=== PATIENT | male | born 1970 | race Caucasian/White ===

== ENCOUNTER 2019-11-24 14:26 | Emergency (ER) | payer OTHER, SELFPAY ==
--- NOTE | ~2019-11-24 | XR_ITS ---
EXAMINATION: XR chest 2V DATE: 11/24/2019 15:22 INDICATION: Productive cough and body aches TECHNIQUE: PA and lateral views of the chest were obtained. COMPARISON: Chest radiograph dated 09/18/2018 FINDINGS: The lungs remain clear with no focal airspace opacities, pulmonary edema, pleural effusion or pneumot horax. The cardiomediastinal silhouette is normal. Median sternotomy wires and mediastinal surgical c lips are seen, likely from prior coronary artery bypass grafting. Mitral valve repair. Single lead pa cemaker/AICD seen with the tip directed over the right ventricle. IMPRESSION: 1. No acute cardiopulmonary disease. Reviewed, dictated and finalized at location A.
[2019-11-24 14:49] VITALS: BP 126/83; PULSE 71; RESP 19; TEMP 36.6; O2SAT 94
--- NOTE | 2019-11-24 16:01 | ED.URI ---
HPI - URI/Sore Throat General Chief Complaint: Upper Respiratory Infection Stated Complaint: cough Time Seen by Provider: 11/24/19 14:47 Source: patient Mode of arrival: ambulatory Limitations: no limitations History of Present Illness HPI Narrative: Patient presents with chief complaint of productive cough over the past 2 weeks. Patient states he coughs up phlegm but is unaware clarity is because he swallows it. Patient states he has not noted any fevers. He reports occasional body aches. Patient states he has been able to eat and drink appropriately. He denies any chest pain, pressure in his chest, nausea, vomiting, diarrhea, or swelling to his extremities. Related Data Home Medications Medication Instructions Recorded Confirmed losartan 25 mg DAILY 08/30/19 08/30/19 metoprolol tartrate 100 mg BID 08/30/19 08/30/19 rosuvastatin 20 mg DAILY 08/30/19 08/30/19 ticagrelor [Brilinta] 90 mg DAILY 08/30/19 08/30/19 Allergies Allergy/AdvReac Type Severity Reaction Status Date / Time No Known Allergies Allergy Verified 11/24/19 14:54 Review of Systems Review of Systems: Narrative: CONSTITUTIONAL: Denies fever, chills, or sweats. EYES: Denies visual changes, redness, or discharge. ENT: Denies rhinorrhea, congestion, sore throat, or otalgia. CARDIOVASCULAR: Denies chest pain, palpitations, or edema. RESPIRATORY: Reports productive cough denies dyspnea. GASTROINTESTINAL: Denies abdominal pain, nausea, vomiting, or diarrhea. GENITOURINARY: Denies dysuria or hematuria. SKIN: Denies rash or itching. MUSCULOSKELETAL: Denies back pain, joint pain, or myalgia. NEUROLOGIC: Denies headache, numbness, dizziness, or weakness. PSYCHIATRIC: Denies anxiety or depression. PMFSH Social History Social History Smoking status: Current every day smoker Alcohol intake: current Gender identity (if verbalized by the patient): Male Exam Narrative: Exam Narrative: GENERAL: Well-appearing, well-nourished, and in no acute distress. HEAD: Normocephalic, atraumatic. EYES: PERRLA and EOMI. ENT: Nares clear, no rhinorrhea or epistaxis. Mucous membranes moist. Oropharynx without tonsillar hypertrophy exudate or other lesions. Bilateral TMs pearly bright nonbulging NECK: Supple. No adenopathy or masses. CHEST: Clear to auscultation. No respiratory distress. No wheezes rales or rhonchi. No tachypnea HEART: Regular rate and rhythm. EXTREMITIES: Normal range of motion. No edema. SKIN: Warm, dry, no rash. NEURO: No focal deficits. Alert and oriented x3. PSYCH: Normal mood and affect. Course Vital Signs Vital signs: Vital Signs Temperature 97.9 F 11/24/19 14:49 Pulse Rate 71 11/24/19 14:49 Respiratory Rate 19 11/24/19 14:49 Blood Pressure 126/83 11/24/19 14:49 Pulse Oximetry 94 11/24/19 14:49 Temperature 97.9 F 11/24/19 14:49 Pulse Rate 71 11/24/19 14:49 Respiratory Rate 19 11/24/19 14:49 Blood Pressure 126/83 11/24/19 14:49 Pulse Oximetry 94 11/24/19 14:49 MDM - URI/Sore Throat MDM Narrative Medical decision making narrative: Discussed with patient the need for close follow-up with his primary care. Patient will be started on azithromycin and will receive Tessalon Perles for cough. Patient nontoxic in appearance. Patient not lethargic. Patient states he is in agreement with plan denies any other concerns. Differential Diagnosis Differential diagnosis: Likely upper respiratory infection, croup, otitis media, sinusitis, viral infection, bronchitis, influenza and pharyngitis Lab Data Labs: Influenza A Screen Negative Reference Range: Negative Influenza B Screen Negative Reference Range: Negative Imaging Data Radiologist's impression: ITS Impressions Chest X-Ray 11/24/19 15:25 IMPRESSION: 1. No acute cardiopulmonary disease. Discharge Plan Discharge Clinical Impression:
[2019-11-24 16:20] VITALS: BP 134/90; PULSE 93; RESP 15; TEMP 36.6; O2SAT 98
== END 2019-11-24 16:21 | disposition home or self-care (01) ==
PROVIDERS: Emergency Provider Family Medicine; PCP Internal Medicine
DX: J40 Bronchitis, not specified as acute or chronic (principal); F17.200 Nicotine dependence, unspecified, uncomplicated
CPT/HCPCS: 71046; 87804; 99283

== ENCOUNTER 2020-05-19 15:04 | Outpatient (CLI) | payer OTHER, SELFPAY ==
[2020-05-19 16:14] LABS: Anion Gap 10 mmol/L (8-16); Blood Urea Nitrogen 15 mg/dL (9-20); Calcium 9.4 mg/dL (8.4-10.2); Carbon Dioxide 27 mmol/L (22-30); Chloride 100 mmol/L (98-107); Estimated Glomerular Filt Rate > 60; Glucose 365 mg/dL (75-110); Magnesium 1.9 mg/dL (1.6-2.3); Potassium 4.4 mmol/L (3.4-5.0); Sodium 137 mmol/L (137-145)
== END 2020-05-19 15:05 | disposition home or self-care (01) ==
PROVIDERS: PCP Internal Medicine; Visit Provider Internal Medicine Cardiovascular Disease
DX: I47.2 Ventricular tachycardia (principal)
CPT/HCPCS: 36415; 80048; 83735

== ENCOUNTER 2021-04-29 08:31 | Outpatient (CLI) | payer OTHER, SELFPAY ==
[2021-04-29 09:47] LABS: Cholesterol 138 mg/dL (0-200); HDL Direct 35 mg/dL; Triglycerides 261 mg/dL (<150)
[2021-04-29 09:59] LABS: LDL Cholesterol Direct 51 mg/dL
== END 2021-04-29 08:32 | disposition home or self-care (01) ==
PROVIDERS: PCP Family Medicine; Visit Provider Nurse Practitioner Adult Health
DX: E78.2 Mixed hyperlipidemia (principal)
CPT/HCPCS: 36415; 80061

== ENCOUNTER 2021-06-27 08:12 | Emergency (ER) | payer OTHER, SELFPAY ==
--- NOTE | ~2021-06-27 | XR_ITS ---
XR chest 2V 06/27/2021 08:50 Indication: Cough Procedure: PA and lateral views of the chest Comparison: 11/24/2019 Findings: Status post median sternotomy for CABG. Heart size normal. There is a pacemaker lead, posit ion unchanged. No acute focal pneumonia, edema or effusion. There are a few small dense nodules, like ly calcified granulomas unchanged. Impression: 1: No acute cardiopulmonary disease Reviewed, dictated and finalized at location B. Impression: 1: No acute cardiopulmonary disease
[2021-06-27 08:19] VITALS: BP 150/99; PULSE 90; RESP 22; TEMP 36.6; O2SAT 95
--- NOTE | 2021-06-27 09:22 | ED.GENADULT ---
HPI - General Adult General Chief complaint: Upper Respiratory Infection Stated complaint: uri Time Seen by Provider: 06/27/21 08:22 History of Present Illness HPI narrative: Patient is a 50-year-old male who presents ER with sinus congestion over the last 5 days. Associate with pain in his right ear. No fevers or chills or sweats. He has developed productive cough. No exertional dyspnea. No loss of taste or smell. No known Covid contacts. Patient is unvaccinated against Covid. No aggravating or alleviating factors but symptoms seem to be getting worse they want to be evaluated. Related Data Home Medications Medication Instructions Recorded Confirmed losartan 25 mg DAILY 08/30/19 08/30/19 metoprolol tartrate 100 mg BID 08/30/19 08/30/19 rosuvastatin 20 mg DAILY 08/30/19 08/30/19 ticagrelor [Brilinta] 90 mg DAILY 08/30/19 08/30/19 insulin lispro [Humalog Pen] SUBCUT 06/27/21 metformin mg 06/27/21 Allergies Allergy/AdvReac Type Severity Reaction Status Date / Time No Known Allergies Allergy Verified 06/27/21 08:24 Review of Systems Review of Systems: All systems reviewed & are unremarkable except as noted in HPI and below Constitutional: Constitutional: Denies chills, Denies fever(s) and Denies weakness ENT: Reports nasal congestion and Denies sore throat Comments: Right ear pain Cardiovascular: Cardiovascular: Denies chest pain, Denies rapid heart rate and Denies radiating jaw, neck or arm pain Respiratory: Respiratory: Reports chest congestion, Reports cough, Denies dyspnea and Denies wheezing Gastrointestinal: Gastrointestinal: Denies abdominal pain, Denies nausea and Denies vomiting Musculoskeletal: Musculoskeletal: Denies back pain and Denies muscle cramps [facility] Past Medical History Medical History (Updated 06/27/21 @ 10:23 by Branden Barrera MD) Chronic diastolic heart failure Chronic pansinusitis Chronic systolic heart failure Coronary artery disease involving [place] artery of transplanted heart without angina pectoris Diverticulosis of intestine, part unspecified, without perforation or abscess with bleeding Dyslipidemia Essential hypertension Gastroenteritis Hx of ventricular tachycardia Obesity (BMI 30.0-34.9) DU (obstructive sleep apnea) Tobacco use disorder Surgical History Surgical History History of heart bypass surgery Family History Family History Sibling Hypertension Family history of cardiovascular disease Mother Hypertension, Onset Age: 67 Social History Social History Smoking status: Current every day smoker Alcohol intake: current Gender identity (if verbalized by the patient): Male Exam Narrative: GENERAL: Well-appearing, well-nourished, and in no acute distress. HEAD: Normocephalic, atraumatic. ENT: The left tympanic membrane and ear canal. Right ear canal normal but tympanic membrane is red and inflamed and bulging. No purulent drainage. CHEST: Clear to auscultation. No respiratory distress. HEART: Regular rate and rhythm. Normal peripheral pulses. ABDOMEN: Soft, nontender, nondistended. EXTREMITIES: Normal range of motion. No edema. SKIN: Warm, dry, no rash. NEURO: Alert and oriented x3. PSYCH: Normal mood and affect. Course Course Emergency Course: Patient swabbed for Covid and has been instructed on PUI precautions. Patient be started on Augmentin for otitis. We will also prescribe Flonase. Discharge home. Patient does not currently work so he does not need a note. Vital Signs Vital signs: Vital Signs Temperature 97.8 F 06/27/21 08:19 Pulse Rate 90 06/27/21 08:19 Respiratory Rate 22 H 06/27/21 08:19 Blood Pressure 150/99 H 06/27/21 08:19 Pulse Oximetry 95 06/27/21 08:19 Temperature 97.8 F 06/27/21 08:19 Pulse Rate 90 06/27/21 08:19
[2021-06-27 10:32] VITALS: BP 143/93; PULSE 88; RESP 20; O2SAT 95
[2021-06-27 18:52] LABS: SARS-CoV-2 RNA PCR Negative
== END 2021-06-27 10:33 | disposition home or self-care (01) ==
PROVIDERS: Emergency Provider Emergency Medicine; PCP Family Medicine
DX: J06.9 Acute upper respiratory infection, unspecified (principal); H66.91 Otitis media, unspecified, right ear; Z20.822 Contact with and (suspected) exposure to COVID-19; I50.42 Chronic combined systolic (congestive) and diastolic (congestive) heart failure; I25.811 Atherosclerosis of native coronary artery of transplanted heart without angina pectoris; E78.5 Hyperlipidemia, unspecified; I11.0 Hypertensive heart disease with heart failure; E66.9 Obesity, unspecified; Z68.33 Body mass index [BMI] 33.0-33.9, adult; G47.33 Obstructive sleep apnea (adult) (pediatric); F17.200 Nicotine dependence, unspecified, uncomplicated; Z95.1 Presence of aortocoronary bypass graft
CPT/HCPCS: 71046; 99283; C9803; U0003; U0005

== ENCOUNTER 2021-10-19 14:18 | Outpatient (CLI) | payer OTHER, SELFPAY ==
[2021-10-19 14:40] LABS: Basophils Absolute Auto 0.1 K/mm3 (0.0-0.1); Basophils Percent Auto 1.2 % (0.2-1.2); Eosinophils Absolute Auto 0.4 K/mm3 (0-0.3); Eosinophils Percent Auto 4.6 % (0-4.4); Hematocrit 50.9 % (42.0-52.0); Hemoglobin 17.4 g/dL (14.0-18.0); Immature Granulocyte Absolute 0.04 K/mm3 (0.00-0.031); Immature Granulocyte Percent A 0.4 % (0-0.5); Lymphocytes Absolute Auto 2.82 K/mm3 (0.9-3.2); Lymphocytes Percent Auto 30.1 % (18.3-44.2); Mean Corpuscular HGB Conc 34.2 g/dl (32-36); Mean Corpuscular Volume 90.6 fl (80-100); Mean Platelet Volume 10.5 fl (7.4-10.4); Monocytes Absolute Auto 0.9 K/mm3 (0.1-0.6); Monocytes Percent Auto 9.2 % (2.6-8.5); Neutrophils Absolute Auto 5.1 K/mm3 (1.3-6.7); Neutrophils Percent Auto 54.5 % (45.5-73.1); Platelet Count Result 178 k/mm3 (150-375); Red Blood Count 5.62 M/mm3 (4.6-6.20); Red Cell Distribution Width 13.6 % (11.5-14.5); White Blood Count 9.4 K/mm3 (4.5-10.0)
[2021-10-19 14:57] LABS: Alanine Aminotransferase 65 U/L (4-50); Albumin Level 4.6 g/dL (3.5-5.1); Alkaline Phosphatase 91 U/L (38-126); Anion Gap 7 mmol/L (8-16); Aspartate Amino Transferase 53 U/L (17-59); Blood Urea Nitrogen 13 mg/dL (9-20); Calcium 9.7 mg/dL (8.4-10.2); Carbon Dioxide 31 mmol/L (22-30); Chloride 102 mmol/L (98-107); Cholesterol 155 mg/dL (0-200); Estimated Glomerular Filt Rate > 60; Glucose 103 mg/dL (65-110); HDL Direct 31 mg/dL; Potassium 4.2 mmol/L (3.4-5.0); Sodium 140 mmol/L (137-145); Triglycerides 426 mg/dL (<150)
[2021-10-19 15:01] LABS: Creatinine Urine 157.2 mg/dL
[2021-10-19 15:05] LABS: MALB Creatinine Ratio 79.1 mg/g (0-30); Microalbumin Urine Random 124.4 mg/L (0-16.7)
[2021-10-19 15:09] LABS: LDL Cholesterol Direct 45 mg/dL
== END 2021-10-19 14:19 | disposition home or self-care (01) ==
LOC: ANHLAB 14:20
PROVIDERS: PCP Family Medicine; Visit Provider Family Medicine
DX: E11.9 Type 2 diabetes mellitus without complications (principal); I10 Essential (primary) hypertension; E78.2 Mixed hyperlipidemia; E03.9 Hypothyroidism, unspecified
CPT/HCPCS: 36415; 80053; 80061; 82043; 83036; 84443; 85025

== ENCOUNTER → 2021-11-19 00:19 | Outpatient (CLI) | payer OTHER, SELFPAY ==
[2021-11-19 13:26] LABS: SARS-CoV-2 RNA PCR Negative
== END ==
PROVIDERS: PCP Family Medicine; Visit Provider Internal Medicine Gastroenterology
DX: Z01.812 Encounter for preprocedural laboratory examination (principal); Z20.822 Contact with and (suspected) exposure to COVID-19
CPT/HCPCS: C9803; U0003; U0005

== ENCOUNTER 2021-11-23 00:31 | Day surgery (SDC) | payer OTHER, SELFPAY ==
[2021-11-16 11:17] VITALS: BMI 35.0
--- NOTE | 2021-11-22 17:33 | PM.HPGS ---
History of Present Illness History of Present Illness Consent: Risks, benefits, and alternatives have been discussed and questions answered. Patient agrees to proceed with procedure. Chief complaint: hx of rectal polyps Narrative: Дмитрий Teixeira is a 51 year old male referred for colon cancer screening. He had tubular adenoma removed 7 years ago Review of Systems Review of Systems: All systems reviewed & are unremarkable except as noted in HPI and below PMFSH Past Medical History Medical History CAD (coronary artery disease), [place] coronary artery Chronic diastolic heart failure Chronic pansinusitis Chronic systolic heart failure Diabetes mellitus with hyperglycemia Diverticulosis of intestine, part unspecified, without perforation or abscess with bleeding Dyslipidemia Essential hypertension Gastroenteritis Hx of ventricular tachycardia ICD (implantable cardioverter-defibrillator) in place Obesity (BMI 30.0-34.9) DU (obstructive sleep apnea) DU on CPAP Tobacco use disorder Surgical History Surgical History H/O colonoscopy with polypectomy 2014, repeat in 5 years History of heart bypass surgery History of implantable cardioverter-defibrillator (ICD) placement Hx of coronary angioplasty Family History Family History Sibling Hypertension Family history of cardiovascular disease Mother Hypertension, Onset Age: 67 Social History Social History Social History: Smoking packs per day: 0.5 Smoking cigarettes per day: 10.0 Years smoked: 42 Smoking pack-years: 21.00 Smoking status: Current every day smoker Tobacco type: cigarettes Second hand tobacco smoke exposure: No Alcohol intake: current Alcohol use details: Socially Substance use: never Substance use type: does not use Living arrangements: with family Gender identity (if verbalized by the patient): Male Sexual Orientation (if Verbalized by the Patient): Straight or Heterosexual Spiritual care concerns: No Meds Home Medications and Allergies Home Medications Medication Instructions Recorded Confirmed Type Brilinta 90 mg PO DAILY 08/30/19 11/23/21 History losartan 25 mg DAILY 08/30/19 11/16/21 History metoprolol tartrate 100 mg PO BID 08/30/19 11/23/21 History metformin 500 mg PO DAILY 06/27/21 11/16/21 History aspirin 81 mg chewable tablet 81 mg PO DAILY 10/18/21 11/16/21 History insulin glargine 100 unit/mL (3 20 unit SUBCUT QAM 10/18/21 11/16/21 History mL) subcutaneous pen insulin lispro 100 unit/mL 1 sliding scale dose SUBCUT 10/18/21 11/16/21 History subcutaneous pen USEASDIRECTD metoclopramide HCl 10 mg tablet 10 mg PO TID PRN #90 tablet 10/18/21 11/16/21 Rx multivitamin 1 tablet PO DAILY 10/18/21 11/16/21 History rosuvastatin 20 mg tablet 40 mg PO DAILY tablet 10/18/21 11/16/21 History fluticasone propionate 50 2 spray INTRANASAL BID #16 g 10/25/21 11/16/21 Rx mcg/actuation nasal spray,suspension omega-3 fatty acids-vitamin E 1 cap PO BID 11/16/21 11/16/21 History Allergies Allergy/AdvReac Type Severity Reaction Status Date / Time No Known Allergies Allergy Verified 11/23/21 09:02 Exam Resp: Auscultation: clear to auscultation bilaterally Cardio: Rate: regular rate Rhythm: regular rhythm GI: GI Palp: Yes Soft to palpation and No Tenderness to palpation present (GI) Assessment and Plan Assessment and plan (1) Colon cancer screening: Code(s): Z12.11 - Encounter for screening for malignant neoplasm of colon Status: Acute Assessment and Plan: Colonoscopy with possible biopsy or polypectomy or cautery or injection of substances.
[2021-11-23 09:16] LABS: Glucose Point of Care 167 mg/dl (65-105)
[2021-11-23] MEDS: LACTATED RINGERS 1,000 ML 150 ML IV CONT (09:16)
[2021-11-23] MEDS: GENTAMICIN 80MG/SOD CHL 50 ML 80 MG/50 ML BAG 100 MG IVPB (09:17)
[2021-11-23 09:19] VITALS: BP 145/87; PULSE 78; RESP 18; TEMP 36.1; O2SAT 94
--- NOTE | 2021-11-23 09:28 | WPDANESEPPF ---
Anes - Initial Pre Proc Eval Procedure: Operation Date: 11/23/21 10:00 Proposed Procedures p Screening Colonoscopy - Josh Villa MD Date/Time: 11/23/21 09:28 Surgeon: Josh Villa MD Pre Op Diagnosis: hx of rectal polyps Patient Data Age: 51 Gender: M Height: 1.8 m Weight: 117 kg Last Vital Signs Temp 36.1 C L 11/23/21 09:19 Pulse 78 11/23/21 09:19 Resp 18 11/23/21 09:19 BP 145/87 H 11/23/21 09:19 Pulse Ox 94 11/23/21 09:19 Allergies Allergy/AdvReac Type Severity Reaction Status Date / Time No Known Allergies Allergy Verified 11/23/21 09:02 Home Medications Medication Instructions Recorded Confirmed Type losartan 25 mg DAILY 08/30/19 11/16/21 History metoprolol tartrate 100 mg PO BID 08/30/19 11/23/21 History ticagrelor [Brilinta] 90 mg PO DAILY 08/30/19 11/23/21 History metformin 500 mg PO DAILY 06/27/21 11/16/21 History aspirin 81 mg chewable tablet 81 mg PO DAILY 10/18/21 11/16/21 History insulin glargine 100 unit/mL (3 20 unit SUBCUT QAM 10/18/21 11/16/21 History mL) subcutaneous pen insulin lispro 100 unit/mL 1 sliding scale dose SUBCUT 10/18/21 11/16/21 History subcutaneous pen USEASDIRECTD metoclopramide HCl 10 mg tablet 10 mg PO TID PRN #90 tablet 10/18/21 11/16/21 Rx multivitamin 1 tablet PO DAILY 10/18/21 11/16/21 History rosuvastatin 20 mg tablet 40 mg PO DAILY tablet 10/18/21 11/16/21 History fluticasone propionate 50 2 spray INTRANASAL BID #16 g 10/25/21 11/16/21 Rx mcg/actuation nasal spray,suspension omega-3 fatty acids-vitamin E 1 cap PO BID 11/16/21 11/16/21 History [Fish Oil] Laboratory Tests 11/23/21 09:13 POC Capillary Glucose 167 mg/dl H mg/dl (65-105) Patient hx anesthesia problems: none Family hx anesthesia problems: none Results Review: All pre-operative results and documents have been reviewed as part of the pre-operative evaluation. [facility] Past Medical History Medical History CAD (coronary artery disease), [place] coronary artery Chronic diastolic heart failure Chronic pansinusitis Chronic systolic heart failure Diabetes mellitus with hyperglycemia Diverticulosis of intestine, part unspecified, without perforation or abscess with bleeding Dyslipidemia Essential hypertension Gastroenteritis Hx of ventricular tachycardia ICD (implantable cardioverter-defibrillator) in place Obesity (BMI 30.0-34.9) DU (obstructive sleep apnea) DU on CPAP Tobacco use disorder Surgical History Surgical History H/O colonoscopy with polypectomy 2014, repeat in 5 years History of heart bypass surgery History of implantable cardioverter-defibrillator (ICD) placement Hx of coronary angioplasty Family History Family History Sibling Hypertension Family history of cardiovascular disease Mother Hypertension, Onset Age: 67 Social History Social History Social History: Smoking packs per day: 0.5 Smoking cigarettes per day: 10.0 Years smoked: 42 Smoking pack-years: 21.00 Smoking status: Current every day smoker Tobacco type: cigarettes Second hand tobacco smoke exposure: No Alcohol intake: current Alcohol use details: Socially Substance use: never Substance use type: does not use Living arrangements: with family Gender identity (if verbalized by the patient): Male Sexual Orientation (if Verbalized by the Patient): Straight or Heterosexual Spiritual care concerns: No Anes - Eval Final PreProcedure Day of Procedure 11/23/21 09:28 Patient weight: obese Heart: regular rate and rhythm (pacer/defib) Lungs: clear to auscultation Airway: Mallampati scale class II Neurological: alert and oriented Last oral intake: >/= 8 hours ASA classification: IV E
[2021-11-23] MEDS: AMPICILLIN 2 GM/NS 100 ML 2 GM/100 ML BAG IVPB (09:40)
[2021-11-23 10:15] VITALS: BP 130/60; PULSE 78; RESP 21; O2SAT 94
[2021-11-23 10:25] VITALS: BP 131/86; PULSE 73; RESP 22; O2SAT 94
== END 2021-11-23 10:42 | disposition home or self-care (01) ==
PROVIDERS: PCP Family Medicine; Visit Provider Internal Medicine Gastroenterology
PROC: 0DJD8ZZ Inspection of Lower Intestinal Tract, Via Natural or Artificial Opening Endoscopic (ICD-10-PCS; CPT 45378; principal; 2021-11-23 10:00)
DX: Z12.11 Encounter for screening for malignant neoplasm of colon (principal); K57.30 Diverticulosis of large intestine without perforation or abscess without bleeding; D12.2 Benign neoplasm of ascending colon; D12.3 Benign neoplasm of transverse colon; D12.8 Benign neoplasm of rectum; K62.1 Rectal polyp; I25.10 Atherosclerotic heart disease of native coronary artery without angina pectoris; I11.0 Hypertensive heart disease with heart failure; I50.42 Chronic combined systolic (congestive) and diastolic (congestive) heart failure; E11.9 Type 2 diabetes mellitus without complications; G47.33 Obstructive sleep apnea (adult) (pediatric); Z95.810 Presence of automatic (implantable) cardiac defibrillator; Z79.01 Long term (current) use of anticoagulants; Z79.4 Long term (current) use of insulin; Z79.84 Long term (current) use of oral hypoglycemic drugs; Z79.82 Long term (current) use of aspirin; Z95.1 Presence of aortocoronary bypass graft; F17.210 Nicotine dependence, cigarettes, uncomplicated; E66.9 Obesity, unspecified; Z68.36 Body mass index [BMI] 36.0-36.9, adult
CPT/HCPCS: 45385; 82948; 88305; J0290; J1580; J2704; J7120

== ENCOUNTER 2022-05-11 08:36 | Inpatient (IN) | payer OTHER, SELFPAY ==
[2022-05-11] VITALS (17 sets, daily range): BP systolic 105–130; BP diastolic 60–93; PULSE 69–98; RESP 13–32; TEMP 36.4–37.7; O2SAT 92–96; BMI 34.7
--- NOTE | ~2022-05-11 | CT_ITS ---
EXAMINATION: CTA chest PE protocol DATE: 05/11/2022 10:53 INDICATION: Shortness of breath, COVID 19 positive TECHNIQUE: Computed tomography angiography (CTA) of the chest was performed with 100 mL Omnipaque-350 intravenous contrast timed to evaluate the pulmonary arteries. Coronal maximum intensity projection 3D-reconstructions were created by the technologist. The dose-length product (DLP) was 857.15 mGy-cm. Automated exposure control and iterative reconstruction technique were employed. COMPARISON: None. FINDINGS: The pulmonary arteries are well-opacified. No pulmonary embolism is identified. There are p atchy bilateral airspace opacities throughout the lungs. No pleural effusion or pneumothorax. No path ologically enlarged thoracic lymph nodes are identified. The heart size is normal. Changes of coronar y artery bypass grafting are noted. The liver is diffusely low in attenuation when compared with the spleen, consistent with hepatic steatosis. There is a small sliding hiatal hernia. IMPRESSION: 1. No pulmonary embolus. 2. Patchy bilateral airspace opacities, consistent with old focal COVID 19 pneumonia. Reviewed, dictated and finalized at location A. IMPRESSION: 1. No pulmonary embolus. 2. Patchy bilateral airspace opacities, consistent with old focal COVID 19 pneu monia.
--- NOTE | ~2022-05-11 | XR_ITS ---
EXAMINATION: XR chest 1V portable DATE: 05/11/2022 09:25 INDICATION: Shortness of breath. Cough. TECHNIQUE: A single frontal view of the chest was obtained. COMPARISON: Chest 2 views 06/27/2021 FINDINGS: There is a diffuse interstitial pattern, consistent mild pulmonary edema. No pleural effusi on or pneumothorax. Cardiomegaly is noted. There are changes of heart valve replacement. There is a l eft chest pacer/defibrillator with lead in right ventricle. IMPRESSION: 1. Mild pulmonary edema. 2. Cardiomegaly. Reviewed, dictated and finalized at location A.
--- NOTE | ~2022-05-11 | US_ITS ---
EXAMINATION: US venous doppler [facility] DATE: 05/11/2022 17:01 INDICATION: Lower limb swelling TECHNIQUE: Grayscale ultrasound images without and with compression and Doppler ultrasound images of the bilateral lower extremity veins were obtained. COMPARISON: None. FINDINGS: The visualized portions of right common femoral vein, profunda (deep) femoral vein, femoral vein, pop liteal vein, posterior tibial veins, peroneal veins and greater saphenous vein outflow are patent. The visualized portions of left common femoral vein, profunda femoral vein, femoral vein, popliteal v ein, posterior tibial veins, peroneal veins and greater saphenous vein outflow are patent. IMPRESSION: 1. No deep venous thrombosis in either lower limb. Reviewed, dictated and finalized at location A.
--- NOTE | 2022-05-11 09:08 | ECG_ITS ---
Measurements Intervals [place] Rate: 78 P: 49 MT: 185 QRS: -86 QRSD: 124 T: 31 QT: 383 QTc: 437 Interpretive Statements SINUS RHYTHM INTRAVENTRICULAR CONDUCTION DELAY CANNOT RULE OUT SEPTAL INFARCT, AGE INDETERMINATE INFERIOR INFARCT, AGE INDETERMINATE ABNORMAL ECG NO PREVIOUS ECG AVAILABLE FOR COMPARISON Electronically Signed On 05-11-2022 9:47:44 CDT by Aaron Cardenas D.O.
--- NOTE | 2022-05-11 09:09 | ED.URI ---
HPI - URI/Sore Throat General Chief Complaint: Shortness of Breath/Dyspnea Stated Complaint: ?covid symptoms, couldn't get into PCP Time Seen by Provider: 05/11/22 08:39 Source: patient Mode of arrival: ambulatory Limitations: no limitations History of Present Illness HPI Narrative: Patient is a 51-year-old male with a history of hypertension, hyperlipidemia, type 2 diabetes presenting to the emergency department for evaluation of COVID exposure. Patient states that his daughter tested positive for COVID last week and he is on day 3 of COVID symptoms with fever, congestion. He reports mild cough and denies any chest pain or shortness of breath. Patient is not vaccinated for COVID and has no known history of COVID infection. He denies significant headache or myalgias. He denies nausea or vomiting. Patient states that his primary care physician referred him here for evaluation. Related Data Home Medications Medication Instructions Recorded Confirmed losartan 25 mg tablet 50 mg PO DAILY 08/30/19 05/11/22 metoprolol tartrate 100 mg tablet 100 mg PO BID 08/30/19 05/11/22 ticagrelor 90 mg tablet (Brilinta) 60 mg PO BID 08/30/19 05/11/22 aspirin 81 mg chewable tablet 81 mg PO DAILY 10/18/21 05/11/22 insulin glargine 100 unit/mL (3 20 unit subcut QAM 10/18/21 05/11/22 mL) subcutaneous pen (Lantus Solostar U-100 Insulin) multivitamin 1 tablet PO DAILY 10/18/21 05/11/22 rosuvastatin 20 mg tablet 40 mg PO DAILY 10/18/21 05/11/22 omega-3 fatty acids-vitamin E 1 cap PO BID 11/16/21 05/11/22 1,000 mg capsule Allergies Allergy/AdvReac Type Severity Reaction Status Date / Time No Known Allergies Allergy Verified 05/11/22 08:58 Review of Systems Review of Systems: CONSTITUTIONAL: Reports fever without significant chills or diaphoresis EYES: Denies visual changes, redness, or discharge. ENT: Reports rhinorrhea, congestion, denies sore throat CARDIOVASCULAR: Denies chest pain, palpitations, or edema. RESPIRATORY: Reports mild cough without shortness of breath GASTROINTESTINAL: Denies abdominal pain, nausea, vomiting, or diarrhea. GENITOURINARY: Denies dysuria or hematuria. SKIN: Denies rash or itching. MUSCULOSKELETAL: Denies back pain, joint pain, or myalgia. NEUROLOGIC: Denies headache, numbness, or weakness. [facility] Past Medical History Medical History CAD (coronary artery disease), [place] coronary artery Chronic diastolic heart failure Chronic pansinusitis Chronic systolic heart failure Diabetes mellitus with hyperglycemia Diverticulosis of intestine, part unspecified, without perforation or abscess with bleeding Dyslipidemia Essential hypertension Gastroenteritis Hx of ventricular tachycardia ICD (implantable cardioverter-defibrillator) in place Obesity (BMI 30.0-34.9) DU (obstructive sleep apnea) DU on CPAP Tobacco use disorder Surgical History Surgical History H/O colonoscopy with polypectomy 2014, repeat in 5 years History of heart bypass surgery History of implantable cardioverter-defibrillator (ICD) placement Hx of coronary angioplasty Family History Family History Sibling Hypertension Family history of cardiovascular disease Mother Hypertension, Onset Age: 67 Social History Social History Social History: Smoking packs per day: 0.5 Smoking cigarettes per day: 10.0 Years smoked: 42 Smoking pack-years: 21.00 Smoking status: Current every day smoker Tobacco type: cigarettes Second hand tobacco smoke exposure: No Alcohol intake: current Alcohol use details: Socially Substance use: never Substance use type: does not use Gender identity (if verbalized by the patient): Male Sexual Orientation (if Verbalized by the Patient): Straight or Hete
[2022-05-11] MEDS: ACETAMINOPHEN 500 MG TABLET 1000 MG PO (09:24)
[2022-05-11 09:53] LABS: Basophils Percent Auto 0.2 % (0.2-1.2); Hematocrit 47.9 % (42.0-52.0); Hemoglobin 16.7 g/dL (14.0-18.0); Immature Granulocyte Absolute 0.03 K/mm3 (0.00-0.031); Immature Granulocyte Percent A 0.4 % (0-0.5); Immature Platelet Fraction Pct 7.9 % (0.9-11.2); Lymphocytes Absolute Auto 1.01 K/mm3 (0.9-3.2); Lymphocytes Percent Auto 12.4 % (18.3-44.2); Mean Corpuscular HGB Conc 34.9 g/dl (32-36); Mean Corpuscular Hemoglobin 30.9 pg (26-34); Mean Corpuscular Volume 88.7 fl (80-100); Mean Platelet Volume 11.6 fl (7.4-10.4); Monocytes Absolute Auto 0.8 K/mm3 (0.1-0.6); Monocytes Percent Auto 9.9 % (2.6-8.5); Neutrophils Absolute Auto 6.3 K/mm3 (1.3-6.7); Neutrophils Percent Auto 77.1 % (45.5-73.1); Platelet Count Result 121 k/mm3 (150-375); Red Cell Distribution Width 13.7 % (11.5-14.5); White Blood Count 8.2 K/mm3 (4.5-10.0)
--- NOTE | 2022-05-11 09:53 | PC.NURSE ---
Pt oxygen saturation found to be 88% on room air. Pt placed on 2L nasal cannula per LONNIE Landrum.
[2022-05-11 10:03] LABS: Prothrombin Time 13.2 Seconds (11.1-14.7)
[2022-05-11 10:04] LABS: Partial Thromboplastin Time 31.9 SECONDS (22.3-36.8)
[2022-05-11 10:05] LABS: Alanine Aminotransferase 88 U/L (6-50); Albumin Level 4.7 g/dL (3.5-5.1); Alkaline Phosphatase 84 U/L (38-126); Anion Gap 6 mmol/L (8-16); Aspartate Amino Transferase 87 U/L (17-59); Bilirubin,Total 0.9 mg/dL (0.2-1.3); Blood Urea Nitrogen 13 mg/dL (9-20); Calcium 8.4 mg/dL (8.4-10.2); Carbon Dioxide 26 mmol/L (22-30); Chloride 99 mmol/L (98-107); Estimated CRCL calculation 98 ml/min; Estimated Glomerular Filt Rate > 60; Glucose 165 mg/dL (65-110); Potassium 4.1 mmol/L (3.4-5.0); Sodium 131 mmol/L (137-145)
[2022-05-11 10:06] LABS: Lactic Acid Reflex 1.2 mmol/L (0.7-2.0)
[2022-05-11 10:16] LABS: Troponin I 0.017 ng/mL (0.000-0.034)
[2022-05-11 10:31] LABS: SARS-CoV-2 RNA PCR Positive
--- NOTE | 2022-05-11 12:38 | PC.NURSE ---
This patient, Дмитрий Teixeira Jr., was admitted to [facility] Surg Room 300-01 on 05/11/22 on @ 1235. Patient/family oriented to hospital policies and general routines including ID bracelet, bed and alarms, visiting hours, pain management, procedures, bathroom and other care routines, personal items, smoking policy, room service/diet, and visiting hours. Information on how to activate the Rapid Response Team has been discussed. Patient/Family are encouraged to report perceived risks to care and to ask questions if they do not understand what they are told or what they should do.
--- NOTE | 2022-05-11 14:33 | PM.IMHP ---
H&P: HPI History of Present Illness Date/Time: 05/11/22 14:33 Chief Complaint: COVID symptoms Narrative: This is a 51-year-old unvaccinated patient with history of hypertension, hyperlipidemia diabetes type 2. The patient came to the emergency room due to his exposure to COVID. His daughter tested positive for COVID last week and he is on day 3 of having fever and congestion. He stated that he had a mild cough and some shortness of breath. He has had no previous history of COVID. No nausea no vomiting no diarrhea. Patient stated that his primary care doctor referred him to the emergency room. The patient was found to be hypoxic and placed on oxygen at 2 L per nasal cannula. He was given Tylenol and Decadron. D-dimer was elevated at 0.9. Sodium 131. Glucose 165. The patient was found to be positive for COVID. Chest CTA was read as no pulmonary embolism. Patchy bilateral airspace opacities consistent with old focal COVID-19 pneumonia. The patient is being admitted for observation on the date of service of 05/11/2022 Review of Systems Review of Systems: See HPI All systems reviewed & are unremarkable except as noted in HPI and below Constitutional: Constitutional: Reports as per HPI and Reports no additional constitutional complaints Eyes: Eyes: Reports as per HPI and Reports no additional eye complaints ENT: Reports system reviewed and no additional complaints, except as documented and Reports Normal hearing present Cardiovascular: Cardiovascular: Reports no additional cardiovascular complaints Respiratory: Respiratory: Reports no additional respiratory complaints and Reports no additional respiratory complaints Gastrointestinal: Gastrointestinal: Reports as per HPI and Reports no additional gastrointestinal complaints Musculoskeletal: Musculoskeletal: Reports no additional musculoskeletal complaints Integumentary/Breasts: Skin/Breast: Reports system reviewed and no additional complaints, except as docu and Reports as per HPI Neurologic: Reports system reviewed and no additional complaints, except as documented, Reports as per HPI and Reports Normal hearing present Psychiatric: Psychiatric: Reports no additional psychiatric complaints and Reports as per HPI Endocrine: Endocrine: Reports no additional endocrine complaints Hematologic/Lymphatic: Hematologic/Lymphatic: Reports no additional hematologic/lymphatic complaints Allergic/Immunologic: Allergic/Immunologic: Reports no additional allergic/immunologic complaints [facility] Past Medical History Medical History (Updated 05/11/22 @ 14:55 by Fatmata Leyva NP) CAD (coronary artery disease), ewiiaapaayp coronary artery Chronic diastolic heart failure Chronic pansinusitis Chronic systolic heart failure Diabetes mellitus with hyperglycemia Diverticulosis of intestine, part unspecified, without perforation or abscess with bleeding Dyslipidemia Essential hypertension Gastroenteritis Hx of ventricular tachycardia ICD (implantable cardioverter-defibrillator) in place Obesity (BMI 30.0-34.9) DU (obstructive sleep apnea) DU on CPAP Tobacco use disorder Surgical History Surgical History (Updated 05/11/22 @ 14:40 by Fatmata Leyva NP) H/O colonoscopy with polypectomy 2014, repeat in 5 years History of heart bypass surgery X2 History of implantable cardioverter-defibrillator (ICD) placement Hx of coronary angioplasty Family History Family History Sibling Hypertension Family history of cardiovascular disease Mother Hypertension, Onset Age: 67 Social History Social History (Updated 05/11/22 @ 14:38 by Fatmata Leyva NP) Social History: The patient is and lives with his . She is the durable power claims attorney for healthcare. The patient has 1 daughter. The patient is currently not working and is applying for disability. The patient stated that he is down to smoking half a pack
[2022-05-11 15:30] LABS: Alanine Aminotransferase 80 U/L (6-50); Estimated CRCL calculation 108 ml/min; Estimated Glomerular Filt Rate > 60
[2022-05-11 15:34] LABS: Prothrombin Time 13.1 Seconds (11.1-14.7)
[2022-05-11 17:13] LABS: Glucose Point of Care 245 mg/dl (65-105)
[2022-05-11] MEDS: INSULIN ASPART (*BKC) 100 UNITS/ML SUB-Q (17:27)
[2022-05-11] MEDS: TICAGRELOR 60 MG TABLET PO (17:28)
[2022-05-11] MEDS: REMDESIVIR 200 MG/NS 250 ML 200 MG/250 ML BAG 250 MG IVPB (17:28)
[2022-05-11] MEDS: OMEGA 3 POLYUNSAT FATTY ACIDS 1 GM CAP PO (17:29)
[2022-05-11] MEDS: METOPROLOL TARTRATE 50 MG TAB 100 MG PO (21:09)
[2022-05-12] VITALS (7 sets, daily range): BP systolic 111–133; BP diastolic 70–75; PULSE 66–70; RESP 16; TEMP 36.1–36.6; O2SAT 93–95
[2022-05-12 03:40] LABS: NT Pro B Type Natriuretic Pept 72 pg/mL (5-100)
[2022-05-12 04:06] LABS: Glucose Point of Care 351 mg/dl (65-105)
[2022-05-12 06:52] LABS: Basophils Percent Auto 0.2 % (0.2-1.2); Hematocrit 48.8 % (42.0-52.0); Hemoglobin 16.8 g/dL (14.0-18.0); Immature Granulocyte Absolute 0.06 K/mm3 (0.00-0.031); Immature Granulocyte Percent A 0.5 % (0-0.5); Immature Platelet Fraction Pct 9.5 % (0.9-11.2); Lymphocytes Absolute Auto 0.95 K/mm3 (0.9-3.2); Lymphocytes Percent Auto 8.6 % (18.3-44.2); Mean Corpuscular HGB Conc 34.4 g/dl (32-36); Mean Corpuscular Hemoglobin 31.3 pg (26-34); Mean Corpuscular Volume 90.9 fl (80-100); Mean Platelet Volume 11.4 fl (7.4-10.4); Monocytes Absolute Auto 0.7 K/mm3 (0.1-0.6); Monocytes Percent Auto 6.7 % (2.6-8.5); Neutrophils Absolute Auto 9.3 K/mm3 (1.3-6.7); Platelet Count Result 138 k/mm3 (150-375); Red Blood Count 5.37 M/mm3 (4.6-6.20); Red Cell Distribution Width 13.5 % (11.5-14.5); White Blood Count 11.1 K/mm3 (4.5-10.0)
[2022-05-12 07:03] LABS: Lactic Acid Reflex 1.2 mmol/L (0.7-2.0)
[2022-05-12 07:04] LABS: Alanine Aminotransferase 65 U/L (6-50); Albumin Level 4.3 g/dL (3.5-5.1); Alkaline Phosphatase 73 U/L (38-126); Anion Gap 11 mmol/L (8-16); Aspartate Amino Transferase 52 U/L (17-59); Bilirubin,Total 0.5 mg/dL (0.2-1.3); Blood Urea Nitrogen 18 mg/dL (9-20); Calcium 8.8 mg/dL (8.4-10.2); Carbon Dioxide 23 mmol/L (22-30); Chloride 105 mmol/L (98-107); Estimated CRCL calculation 120 ml/min; Estimated Glomerular Filt Rate > 60; Glucose 252 mg/dL (65-110); Lactate Dehydrogenase 311 U/L (120-246); Lipase 190 U/L (23-300); Magnesium 2.2 mg/dL (1.6-2.3); Potassium 4.7 mmol/L (3.4-5.0); Sodium 139 mmol/L (137-145)
[2022-05-12 07:22] LABS: Hemoglobin A1C 8.4 % (<5.7)
[2022-05-12 07:40] LABS: Glucose Point of Care 252 mg/dl (65-105)
[2022-05-12 07:48] LABS: Thyroid Stimulating Hormone Reflex 0.415 uIU/mL (0.465-4.68)
[2022-05-12 08:14] LABS: Free T4 Free Thyroxine Reflex 0.74 ng/dL (0.78-2.19)
[2022-05-12] MEDS: ASPIRIN 81 MG CHEWABLE TABLET PO (08:54)
[2022-05-12] MEDS: TICAGRELOR 60 MG TABLET PO ×2 (08:54→17:19)
[2022-05-12] MEDS: MULTIVITAMINS THERAPEUTIC TAB (*BKC) 1 TABLET PO (08:54)
[2022-05-12] MEDS: INSULIN ASPART (*BKC) 100 UNITS/ML SUB-Q ×3 (08:55→17:19)
[2022-05-12] MEDS: OMEGA 3 POLYUNSAT FATTY ACIDS 1 GM CAP PO ×2 (08:55→17:19)
[2022-05-12] MEDS: INSULIN GLARGINE (*BKC) 100 UNITS/ML 20 UNITS SUB-Q (08:55)
[2022-05-12] MEDS: ROSUVASTATIN 10 MG TABLET 40 MG PO (08:55)
[2022-05-12] MEDS: LOSARTAN POTASSIUM 50 MG TABLET PO (08:55)
[2022-05-12] MEDS: ENOXAPARIN 40 MG/0.4 ML SYRINGE SUB-Q (08:56)
[2022-05-12] MEDS: METOPROLOL TARTRATE 50 MG TAB 100 MG PO ×2 (08:56→20:19)
[2022-05-12] MEDS: REMDESIVIR 100 MG/NS 250 ML 100 MG/250 ML BAG 250 MG IVPB (10:38)
[2022-05-12 11:27] LABS: Glucose Point of Care 273 mg/dl (65-105)
--- NOTE | 2022-05-12 14:55 | PM.IMPN ---
Progress Note: A&P Assessment and Plan (1) COVID-19: Code(s): U07.1 - COVID-19 Status: Acute Assessment and Plan: Symptom onset 3 days prior to presentation. COVID positive at this facility on 05/11/2022 CTA showed patchy bilateral airspace opacities consistent with COVID 19 pneumonia Currently requiring 2.5 L supplemental O2 per nasal cannula Continue dexamethasone and remdesivir #2 today. Monitor LFTs while on this therapy Supportive care to include bronchodilators, expectorants, antipyretics, incentive spirometry Trend inflammatory markers Patient has not been vaccinated for COVID (2) Hypoxia: Code(s): R09.02 - Hypoxemia Status: Acute Assessment and Plan: Secondary to COVID-19 Plan as above Monitor O2 sats and wean oxygen as tolerated with goal saturations 92% or above (3) DU on CPAP: Code(s): G47.33 - Obstructive sleep apnea (adult) (pediatric); Z99.89 - Dependence on other enabling machines and devices Status: Acute Assessment and Plan: Continue CPAP titrated to home settings (4) Ischemic cardiomyopathy with implantable cardioverter-defibrillator (ICD): Code(s): I25.5 - Ischemic cardiomyopathy; Z95.810 - Presence of automatic (implantable) cardiac defibrillator Status: Acute Assessment and Plan: Established with Cardiology. No acute issues Continue home medications including aspirin, Brilinta, rosuvastatin (5) Tobacco use disorder: Code(s): F17.200 - Nicotine dependence, unspecified, uncomplicated Status: Acute Assessment and Plan: Long history of smoking half pack per day Declines need for nicotine patch Continue to encourage smoking cessation (6) Diabetes mellitus with hyperglycemia: Qualifiers: Diabetes mellitus type: type 2 Diabetes mellitus long term care phlebotomist insulin use: with long term care phlebotomist use Qualified Code(s): E11.65 - Type 2 diabetes mellitus with hyperglycemia; Z79.4 - long term care pharmacist (current) use of insulin Code(s): E11.65 - Type 2 diabetes mellitus with hyperglycemia Status: Acute Assessment and Plan: A1c is 8.4. Blood sugars have been elevated today in the 250-270 Continue home Lantus 20 units daily Accu-Cheks, high-dose sliding scale insulin, and hypoglycemic protocol Consider addition of scheduled NovoLog if blood sugars remain elevated. Likely to be running higher due to IV steroids Monitor glucose trends and adjust insulin regimen as needed (7) Essential hypertension: Code(s): I10 - Essential (primary) hypertension Status: Acute Assessment and Plan: Blood pressures reviewed and have been stable. Last BP 111/73 Continue home metoprolol and losartan Monitor blood pressure trends Subjective Date/time seen: 05/12/22 14:55 Interval history: Date of service: 05/12/2022 Дмитрий Teixeira is a 51-year-old male with a history of CAD s/p CABG, AICD in place, DU on CPAP hypertension, tobacco abuse, CHF, and hyperlipidemia who is seen in follow-up for COVID-19 pneumonia. He is feeling better today. He had a headache yesterday in all through the night that resolved this morning. He feels short of breath is consistent with his baseline at this time, stating he is always short of breath due to his history of smoking. He endorses a dry cough. He states he feels is trying to loosen up and he has chest congestion that he needs to cough out. He has been able to ambulate without difficulty and denies dyspnea on exertion. Denies conversational dyspnea. No chest pain. No nausea or vomiting. Endorses good appetite. No loss of taste or smell. Denies abdominal pain, bloating, diarrhea. No urinary symptoms. Review of Systems Review of Systems: All systems reviewed & are unremarkable except as noted in HPI and below Exam Narrative: General: Well-nourished, well-appearing 51-year-old male, sitting up in bed, comfortable, NARD Neuro: emily
[2022-05-12 16:25] LABS: Glucose Point of Care 241 mg/dl (65-105)
[2022-05-13] VITALS (8 sets, daily range): BP systolic 116–129; BP diastolic 60–74; PULSE 60–98; RESP 16–18; TEMP 36.6–36.7; O2SAT 91–98
[2022-05-13 00:35] LABS: Glucose Point of Care 369 mg/dl (65-105)
[2022-05-13 05:44] LABS: Prothrombin Time 12.7 Seconds (11.1-14.7)
[2022-05-13 05:46] LABS: Alanine Aminotransferase 52 U/L (6-50); Albumin Level 4.5 g/dL (3.5-5.1); Alkaline Phosphatase 77 U/L (38-126); Anion Gap 14 mmol/L (8-16); Aspartate Amino Transferase 48 U/L (17-59); Bilirubin,Total 0.6 mg/dL (0.2-1.3); Blood Urea Nitrogen 24 mg/dL (9-20); Calcium 8.8 mg/dL (8.4-10.2); Carbon Dioxide 29 mmol/L (22-30); Chloride 97 mmol/L (98-107); Estimated CRCL calculation 108 ml/min; Estimated Glomerular Filt Rate > 60; Glucose 272 mg/dL (65-110); Potassium 4.4 mmol/L (3.4-5.0); Sodium 140 mmol/L (137-145)
[2022-05-13 05:47] LABS: Hematocrit 48.6 % (42.0-52.0); Hemoglobin 16.6 g/dL (14.0-18.0); Lactic Acid Reflex 1.5 mmol/L (0.7-2.0); Mean Corpuscular HGB Conc 34.2 g/dl (32-36); Mean Corpuscular Hemoglobin 30.6 pg (26-34); Mean Corpuscular Volume 89.5 fl (80-100); Mean Platelet Volume 11.3 fl (7.4-10.4); Platelet Count Result 147 k/mm3 (150-375); Red Blood Count 5.43 M/mm3 (4.6-6.20); Red Cell Distribution Width 13.4 % (11.5-14.5); White Blood Count 13.4 K/mm3 (4.5-10.0)
--- NOTE | 2022-05-13 06:40 | PCRCNOTE ---
patient refused the use of hospital cpap/bipap; RT explained the benefits of use to no avail
[2022-05-13 07:39] LABS: Glucose Point of Care 246 mg/dl (65-105)
[2022-05-13] MEDS: OMEGA 3 POLYUNSAT FATTY ACIDS 1 GM CAP PO ×2 (08:50→17:10)
[2022-05-13] MEDS: ASPIRIN 81 MG CHEWABLE TABLET PO (08:50)
[2022-05-13] MEDS: ROSUVASTATIN 10 MG TABLET 40 MG PO (08:50)
[2022-05-13] MEDS: LOSARTAN POTASSIUM 50 MG TABLET PO (08:50)
[2022-05-13] MEDS: MULTIVITAMINS THERAPEUTIC TAB (*BKC) 1 TABLET PO (08:50)
[2022-05-13] MEDS: INSULIN GLARGINE (*BKC) 100 UNITS/ML 20 UNITS SUB-Q (08:51)
[2022-05-13] MEDS: INSULIN ASPART (*BKC) 100 UNITS/ML SUB-Q ×5 (08:51→17:12)
[2022-05-13] MEDS: ENOXAPARIN 40 MG/0.4 ML SYRINGE SUB-Q (08:51)
[2022-05-13] MEDS: TICAGRELOR 60 MG TABLET PO ×2 (08:52→17:15)
[2022-05-13] MEDS: METOPROLOL TARTRATE 50 MG TAB 100 MG PO ×2 (08:53→21:47)
[2022-05-13] MEDS: REMDESIVIR 100 MG/NS 250 ML 100 MG/250 ML BAG 250 MG IVPB (08:59)
--- NOTE | 2022-05-13 11:35 | P.PNIM_ITS ---
Progress Note: A&P Assessment and Plan (1) COVID-19: Code(s): U07.1 - COVID-19 Status: Acute Assessment and Plan: Symptom onset 3 days prior to presentation. COVID positive at this facility on 05/11/2022 * CTA showed patchy bilateral airspace opacities consistent with COVID 19 pneumonia * Currently requiring 1.5 L supplemental O2 per nasal cannula. * Continue dexamethasone and remdesivir #3 today. Monitor LFTs while on this therapy * Supportive care to include bronchodilators, expectorants, antipyretics, incentive spirometry * Trend inflammatory markers * Patient has not been vaccinated for COVID (2) Hypoxia: Code(s): R09.02 - Hypoxemia Status: Acute Assessment and Plan: Secondary to COVID-19 * Plan as above * Monitor O2 sats and wean oxygen as tolerated with goal saturations 92% or above * Will need home O2 eval prior to discharge (3) DU on CPAP: Code(s): G47.33 - Obstructive sleep apnea (adult) (pediatric); Z99.89 - Dependence on other enabling machines and devices Status: Acute Assessment and Plan: Patient reports he has not used CPAP in over 8 years as he is not able to tolerate * will need to follow-up with PCP to discuss alternative management options (4) Ischemic cardiomyopathy with implantable cardioverter-defibrillator (ICD): Code(s): I25.5 - Ischemic cardiomyopathy; Z95.810 - Presence of automatic (implantable) cardiac defibrillator Status: Acute Assessment and Plan: Established with Cardiology. No acute issues * Continue home medications including aspirin, Brilinta, rosuvastatin (5) Tobacco use disorder: Code(s): F17.200 - Nicotine dependence, unspecified, uncomplicated Status: Acute Assessment and Plan: Long history of smoking half pack per day * Declines need for nicotine patch * Continue to encourage smoking cessation (6) Diabetes mellitus with hyperglycemia: Qualifiers: Diabetes mellitus type: type 2 Diabetes mellitus third hand insulin use: with senior care use Qualified Code(s): E11.65 - Type 2 diabetes mellitus with hyperglycemia; Z79.4 - retirement (current) use of insulin Code(s): E11.65 - Type 2 diabetes mellitus with hyperglycemia Status: Acute Assessment and Plan: A1c is 8.4. Blood sugars have been elevated today in the 240-270 range * Likely to be running higher due to IV steroids * Continue home Lantus, increase to 20 units daily * Accu-Cheks, high-dose sliding scale insulin, and hypoglycemic protocol * Will add NovoLog 5 units scheduled with meals * Monitor glucose trends and adjust insulin regimen as needed (7) Essential hypertension: Code(s): I10 - Essential (primary) hypertension Status: Acute Assessment and Plan: Blood pressures reviewed and have been stable. Last BP 129/60 * Continue home metoprolol and losartan * Monitor blood pressure trends Subjective Date/time seen: 05/13/22 11:35 Interval history: Date of service: 05/13/2022 Дмитрий Teixeira is a 51-year-old male with a history of CAD s/p CABG, AICD in place, DU on CPAP hypertension, tobacco abuse, CHF, and hyperlipidemia who is seen in follow-up for COVID-19 pneumonia. he feels better today. He is feeling like he is getting back to his usual state of health. His shortness of breath is resolved. He does endorse cough that he states is productive but he has been swallowing the sputum. He denies sinus congestion or nasal drainage. Denies chest pain. No MCKEON. No
--- NOTE | 2022-05-13 11:35 | PM.IMPN ---
Progress Note: A&P Assessment and Plan (1) COVID-19: Code(s): U07.1 - COVID-19 Status: Acute Assessment and Plan: Symptom onset 3 days prior to presentation. COVID positive at this facility on 05/11/2022 CTA showed patchy bilateral airspace opacities consistent with COVID 19 pneumonia Currently requiring 1.5 L supplemental O2 per nasal cannula. Continue dexamethasone and remdesivir #3 today. Monitor LFTs while on this therapy Supportive care to include bronchodilators, expectorants, antipyretics, incentive spirometry Trend inflammatory markers Patient has not been vaccinated for COVID (2) Hypoxia: Code(s): R09.02 - Hypoxemia Status: Acute Assessment and Plan: Secondary to COVID-19 Plan as above Monitor O2 sats and wean oxygen as tolerated with goal saturations 92% or above Will need home O2 eval prior to discharge (3) DU on CPAP: Code(s): G47.33 - Obstructive sleep apnea (adult) (pediatric); Z99.89 - Dependence on other enabling machines and devices Status: Acute Assessment and Plan: Patient reports he has not used CPAP in over 8 years as he is not able to tolerate will need to follow-up with PCP to discuss alternative management options (4) Ischemic cardiomyopathy with implantable cardioverter-defibrillator (ICD): Code(s): I25.5 - Ischemic cardiomyopathy; Z95.810 - Presence of automatic (implantable) cardiac defibrillator Status: Acute Assessment and Plan: Established with Cardiology. No acute issues Continue home medications including aspirin, Brilinta, rosuvastatin (5) Tobacco use disorder: Code(s): F17.200 - Nicotine dependence, unspecified, uncomplicated Status: Acute Assessment and Plan: Long history of smoking half pack per day Declines need for nicotine patch Continue to encourage smoking cessation (6) Diabetes mellitus with hyperglycemia: Qualifiers: Diabetes mellitus type: type 2 Diabetes mellitus residential insulin use: with intermediate project manager use Qualified Code(s): E11.65 - Type 2 diabetes mellitus with hyperglycemia; Z79.4 - terminal makeup operator (current) use of insulin Code(s): E11.65 - Type 2 diabetes mellitus with hyperglycemia Status: Acute Assessment and Plan: A1c is 8.4. Blood sugars have been elevated today in the 240-270 range Likely to be running higher due to IV steroids Continue home Lantus, increase to 20 units daily Accu-Cheks, high-dose sliding scale insulin, and hypoglycemic protocol Will add NovoLog 5 units scheduled with meals Monitor glucose trends and adjust insulin regimen as needed (7) Essential hypertension: Code(s): I10 - Essential (primary) hypertension Status: Acute Assessment and Plan: Blood pressures reviewed and have been stable. Last BP 129/60 Continue home metoprolol and losartan Monitor blood pressure trends Subjective Date/time seen: 05/13/22 11:35 Interval history: Date of service: 05/13/2022 Дмитрий Teixeira is a 51-year-old male with a history of CAD s/p CABG, AICD in place, DU on CPAP hypertension, tobacco abuse, CHF, and hyperlipidemia who is seen in follow-up for COVID-19 pneumonia. he feels better today. He is feeling like he is getting back to his usual state of health. His shortness of breath is resolved. He does endorse cough that he states is productive but he has been swallowing the sputum. He denies sinus congestion or nasal drainage. Denies chest pain. No MCKEON. No conversational dyspnea. He is able to ambulate without difficulty. His appetite is improving and he was able to eat more today than he has over the past several days. He denies nausea, vomiting, fever, chills, sweats, dizziness, lightheadedness, weakness. Review of Systems Review of Systems: All systems reviewed & are unremarkable except as noted in HPI and below Exam Narrative: General: Well-nourished, well-ap
[2022-05-13 11:59] LABS: Glucose Point of Care 277 mg/dl (65-105)
[2022-05-13 17:05] LABS: Glucose Point of Care 259 mg/dl (65-105)
[2022-05-14] VITALS (7 sets, daily range): BP systolic 125–136; BP diastolic 68–79; PULSE 54–73; RESP 16–18; TEMP 36.4–36.7; O2SAT 91–96
[2022-05-14 00:46] LABS: Glucose Point of Care 387 mg/dl (65-105)
[2022-05-14 06:21] LABS: Hematocrit 42.9 % (42.0-52.0); Hemoglobin 14.7 g/dL (14.0-18.0); Mean Corpuscular HGB Conc 34.3 g/dl (32-36); Mean Corpuscular Hemoglobin 31.1 pg (26-34); Mean Corpuscular Volume 90.9 fl (80-100); Mean Platelet Volume 11.9 fl (7.4-10.4); Platelet Count Result 148 k/mm3 (150-375); Red Blood Count 4.72 M/mm3 (4.6-6.20); Red Cell Distribution Width 13.4 % (11.5-14.5); White Blood Count 10.3 K/mm3 (4.5-10.0)
[2022-05-14 06:32] LABS: Anion Gap 15 mmol/L (8-16); Blood Urea Nitrogen 23 mg/dL (9-20); Calcium 8.4 mg/dL (8.4-10.2); Carbon Dioxide 26 mmol/L (22-30); Chloride 98 mmol/L (98-107); Estimated CRCL calculation 120 ml/min; Estimated Glomerular Filt Rate > 60; Glucose 323 mg/dL (65-110); Potassium 4.1 mmol/L (3.4-5.0); Prothrombin Time 12.8 Seconds (11.1-14.7); Sodium 139 mmol/L (137-145)
[2022-05-14 08:00] LABS: Glucose Point of Care 268 mg/dl (65-105)
[2022-05-14] MEDS: INSULIN ASPART (*BKC) 100 UNITS/ML SUB-Q ×2 (08:32→11:58)
[2022-05-14] MEDS: INSULIN GLARGINE (*BKC) 100 UNITS/ML 24 UNITS SUB-Q (08:34)
[2022-05-14] MEDS: INSULIN ASPART (*BKC) 100 UNITS/ML 6 UNITS SUB-Q ×2 (08:34→11:58)
[2022-05-14] MEDS: ENOXAPARIN 40 MG/0.4 ML SYRINGE SUB-Q (08:39)
[2022-05-14] MEDS: ROSUVASTATIN 10 MG TABLET 40 MG PO (08:39)
[2022-05-14] MEDS: ASPIRIN 81 MG CHEWABLE TABLET PO (08:39)
[2022-05-14] MEDS: METOPROLOL TARTRATE 50 MG TAB 100 MG PO (08:40)
[2022-05-14] MEDS: MULTIVITAMINS THERAPEUTIC TAB (*BKC) 1 TABLET PO (08:40)
[2022-05-14] MEDS: LOSARTAN POTASSIUM 50 MG TABLET PO (08:40)
[2022-05-14] MEDS: TICAGRELOR 60 MG TABLET PO (08:40)
[2022-05-14] MEDS: OMEGA 3 POLYUNSAT FATTY ACIDS 1 GM CAP PO (08:40)
[2022-05-14] MEDS: REMDESIVIR 100 MG/NS 250 ML 100 MG/250 ML BAG 250 MG IVPB (09:30)
--- NOTE | 2022-05-14 11:35 | PC.NURSE ---
Called and left a voicemail to Lori GARCIA at 1130. Pt on room air and does not require oxygen. Home 02 eval was completed at 1120.
--- NOTE | 2022-05-14 11:47 | PCRCNOTE ---
Home Oxygen evaluation complete. Pt. does not require Home oxygen. Pt.'s Nurse and Charge Nurse both notified of the results.
--- NOTE | 2022-05-14 12:00 | P.DS_ITS ---
DS: Admitting Diagnosis Discharge Date 05/14/2022 Admitting Diagnosis COVID-19 DS: Discharge Diagnosis Discharge Diagnosis (1) COVID-19: Code(s): U07.1 - COVID-19 Status: Acute Assessment and Plan: Symptom onset 3 days prior to presentation. COVID positive at this facility on 05/11/2022 * CTA showed patchy bilateral airspace opacities consistent with COVID 19 pneumonia * Completed 4 days of dexamethasone and remdesivir. LFTs monitored and were appropriate. * Supportive care provided including bronchodilators, expectorants, antipyretics, incentive spirometry * Patient has not been vaccinated for COVID. Follow up with PCP to discuss completing COVID vaccine 90 days following acute illness. (2) Hypoxia: Code(s): R09.02 - Hypoxemia Status: Acute Assessment and Plan: Secondary to COVID-19 * Required up to 2.5 L supplemental O2 * Able to be weaned to room air. * Home O2 eval completed on 05/14/22 with no oxygen requirements. (3) DU on CPAP: Code(s): G47.33 - Obstructive sleep apnea (adult) (pediatric); Z99.89 - Dependence on other enabling machines and devices Status: Acute Assessment and Plan: Patient reports he has not used CPAP in over 8 years as he is not able to tolerate * will need to follow-up with PCP to discuss alternative management options (4) Ischemic cardiomyopathy with implantable cardioverter-defibrillator (ICD): Code(s): I25.5 - Ischemic cardiomyopathy; Z95.810 - Presence of automatic (implantable) cardiac defibrillator Status: Acute Assessment and Plan: Established with Cardiology. No acute issues * Continue home medications including aspirin, Brilinta, rosuvastatin (5) Tobacco use disorder: Code(s): F17.200 - Nicotine dependence, unspecified, uncomplicated Status: Acute Assessment and Plan: Long history of smoking half pack per day * Declined need for nicotine patch during admission * Patient educated regarding smoking cessation. No plans to quit smoking at this time. (6) Diabetes mellitus with hyperglycemia: Qualifiers: Diabetes mellitus type: type 2 Diabetes mellitus fpc insulin use: with fpc use Qualified Code(s): E11.65 - Type 2 diabetes mellitus with h yperglycemia; Z79.4 - care home (current) use of insulin Code(s): E11.65 - Type 2 diabetes mellitus with hyperglycemia Status: Acute Assessment and Plan: A1c is 8.4. Blood sugars elevated during admission secondary to IV steroids * Anticipate improvement following discontinuation of dexamethasone. * Continue home insulin regimen * Instructed to monitor blood sugars closely at home and follow up with PCP in 1 week for review. (7) Essential hypertension: Code(s): I10 - Essential (primary) hypertension Status: Acute Assessment and Plan: Blood pressures reviewed and were stable. * Continue home metoprolol and losartan DS: Summary Hospital Course Hospital Course: Date of admission: 05/11/2022 Date of discharge: 05/14/2022 Дмитрий Teixeira is a 51-year-old male with a history of CAD s/p CABG, AICD in pl [place], DU on CPAP hypertension, tobacco abuse, CHF, and hyperlipidemia who presented to the emergency department on 05/11/2022 with complaints fever, congestion, and mild cough ongoing for 3 days following a COVID exposure. On presentation to the ED, he was noted to be tachypneic and required 2 L supplemental oxygen, laboratory workup generally unremarkable, COVID PCR
--- NOTE | 2022-05-14 12:00 | PM.DS ---
DS: Admitting Diagnosis Discharge Date 05/14/2022 Admitting Diagnosis COVID-19 DS: Discharge Diagnosis Discharge Diagnosis (1) COVID-19: Code(s): U07.1 - COVID-19 Status: Acute Assessment and Plan: Symptom onset 3 days prior to presentation. COVID positive at this facility on 05/11/2022 CTA showed patchy bilateral airspace opacities consistent with COVID 19 pneumonia Completed 4 days of dexamethasone and remdesivir. LFTs monitored and were appropriate. Supportive care provided including bronchodilators, expectorants, antipyretics, incentive spirometry Patient has not been vaccinated for COVID. Follow up with PCP to discuss completing COVID vaccine 90 days following acute illness. (2) Hypoxia: Code(s): R09.02 - Hypoxemia Status: Acute Assessment and Plan: Secondary to COVID-19 Required up to 2.5 L supplemental O2 Able to be weaned to room air. Home O2 eval completed on 05/14/22 with no oxygen requirements. (3) DU on CPAP: Code(s): G47.33 - Obstructive sleep apnea (adult) (pediatric); Z99.89 - Dependence on other enabling machines and devices Status: Acute Assessment and Plan: Patient reports he has not used CPAP in over 8 years as he is not able to tolerate will need to follow-up with PCP to discuss alternative management options (4) Ischemic cardiomyopathy with implantable cardioverter-defibrillator (ICD): Code(s): I25.5 - Ischemic cardiomyopathy; Z95.810 - Presence of automatic (implantable) cardiac defibrillator Status: Acute Assessment and Plan: Established with Cardiology. No acute issues Continue home medications including aspirin, Brilinta, rosuvastatin (5) Tobacco use disorder: Code(s): F17.200 - Nicotine dependence, unspecified, uncomplicated Status: Acute Assessment and Plan: Long history of smoking half pack per day Declined need for nicotine patch during admission Patient educated regarding smoking cessation. No plans to quit smoking at this time. 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 Blood sugars elevated during admission secondary to IV steroids Anticipate improvement following discontinuation of dexamethasone. Continue home insulin regimen Instructed to monitor blood sugars closely at home and follow up with PCP in 1 week for review. (7) Essential hypertension: Code(s): I10 - Essential (primary) hypertension Status: Acute Assessment and Plan: Blood pressures reviewed and were stable. Continue home metoprolol and losartan DS: Summary Hospital Course Hospital Course: Date of admission: 05/11/2022 Date of discharge: 05/14/2022 Дмитрий Teixeira is a 51-year-old male with a history of CAD s/p CABG, AICD in place, DU on CPAP hypertension, tobacco abuse, CHF, and hyperlipidemia who presented to the emergency department on 05/11/2022 with complaints fever, congestion, and mild cough ongoing for 3 days following a COVID exposure. On presentation to the ED, he was noted to be tachypneic and required 2 L supplemental oxygen, laboratory workup generally unremarkable, COVID PCR positive, CXR with mild pulmonary edema. He was admitted to the hospitalist service for further evaluation and management. Please see above for further details. He had symptomatic improvement following dexamethasone and remdesivir and was able to be weaned from oxygen. He was feeling significantly improved, back to his usual state of health. Given his overall improvement, he was determined to no longer require inpatient care and wa
[2022-05-14 12:01] LABS: Glucose Point of Care 235 mg/dl (65-105)
== END 2022-05-14 12:45 | disposition home or self-care (01) | DRG 177 ==
LOC: ANHED 09:03 → ANH3MEDSUR 12:06
PROVIDERS: Nurse Practitioner; Admitting Provider Internal Medicine; Emergency Provider Emergency Medicine; PCP Family Medicine; Visit Provider Physician Assistant
DX: U07.1 COVID-19 (principal); J12.82 Pneumonia due to coronavirus disease 2019; I50.42 Chronic combined systolic (congestive) and diastolic (congestive) heart failure; R09.02 Hypoxemia; G47.33 Obstructive sleep apnea (adult) (pediatric); I25.5 Ischemic cardiomyopathy; E11.65 Type 2 diabetes mellitus with hyperglycemia; I10 Essential (primary) hypertension; F17.210 Nicotine dependence, cigarettes, uncomplicated; E78.5 Hyperlipidemia, unspecified; I25.10 Atherosclerotic heart disease of native coronary artery without angina pectoris; K57.90 Diverticulosis of intestine, part unspecified, without perforation or abscess without bleeding; Z79.4 Long term (current) use of insulin; Z95.810 Presence of automatic (implantable) cardiac defibrillator; Z99.81 Dependence on supplemental oxygen; Z95.1 Presence of aortocoronary bypass graft
CPT/HCPCS: 36415; 71045; 71275; 80048; 80053; 82565; 82728; 82948; 83036; 83605; 83615; 83690; 83735; 83880; 84439; 84443; 84460; 84484; 85025; 85027; 85055; 85380; 85610; 85730; 93005; 93970; 94618; 96365; 96372; 96375; 99285; A9270; C9803; G0378; J0248; J1100; J1650; J1815; Q9967; U0003; U0005

== ENCOUNTER 2022-06-23 12:50 | Outpatient (CLI) | payer OTHER, SELFPAY ==
[2022-06-23 13:49] LABS: Alanine Aminotransferase 38 U/L (6-50); Albumin Level 4.8 g/dL (3.5-5.1); Alkaline Phosphatase 107 U/L (38-126); Anion Gap 10 mmol/L (8-16); Aspartate Amino Transferase 34 U/L (17-59); Blood Urea Nitrogen 12 mg/dL (9-20); Calcium 9.1 mg/dL (8.4-10.2); Carbon Dioxide 26 mmol/L (22-30); Chloride 104 mmol/L (98-107); Estimated Glomerular Filt Rate > 60; Glucose 146 mg/dL (65-110); Potassium 4.1 mmol/L (3.4-5.0); Sodium 140 mmol/L (137-145)
[2022-06-23 14:27] LABS: Hemoglobin A1C 8.8 % (<5.7)
== END 2022-06-23 12:51 | disposition home or self-care (01) ==
LOC: ANHLAB 12:52
PROVIDERS: PCP Family Medicine; Visit Provider Family Medicine
DX: E11.9 Type 2 diabetes mellitus without complications (principal); I10 Essential (primary) hypertension
CPT/HCPCS: 36415; 80053; 83036

== ENCOUNTER 2022-06-26 12:41 | Outpatient (CLI) | payer OTHER, SELFPAY ==
--- NOTE | 2022-07-03 17:28 | WPDSIXMINUTE ---
Six Minute Walk Procedure Procedure Performed Pulmonary Stress Test (6 min walk) Six Minute Walk Six Minute Walk: This is a 6 minute walk test. The test was performed and interpreted in accordance with the 2014 ERS/ATS task force guidelines. Findings: The patient's resting room air oxygen saturation measured by pulse oximetry was 93% and heart rate was 89 bpm. Patient ambulated for 396 meters and oxygen saturation remained 90 to 93%. Heart rate at the end of the study was 107 bpm. The patient did not qualify for supplemental oxygen at rest or with ambulation. There are no prior studies for comparison.
--- NOTE | 2022-07-03 17:29 | WPDPFTINT ---
PFT Procedure Performed PFT Procedure Performed Spirometry with Pre/Post Bronchodilator Plethysmography (Lung Vol) Diffusing Cap (DLCO) Flow Vol Loop PFT Interpretation This is a pulmonary function test with pre and post-bronchodilator spirometry, plethysmography and diffusing capacity. The test was performed and results interpreted in accordance with the 2019 and 2005 ATS/ERS Task Force guidelines respectively using the Global Lung Function Initiative-2012 reference equations. Patient demonstrated good effort and cooperation. Reproducibility criteria were met. The quality of the pre bronchodilator spirometry maneuver was Grade A and post bronchodilator spirometry maneuver was Grade A. Findings: Spirometry: The contour the inspiratory and expiratory flow tracing are normal. The pre bronchodilator FVC is 3.83 L, 75% predicted. The pre bronchodilator FEV1 is 3.00 L, 76% predicted. The pre bronchodilator FEV1: FVC ratio 78%. The post bronchodilator FVC is 3.73 L, representing a 3% decrease. The post bronchodilator FEV1 is 2.88 L, representing a 4% decrease. The post bronchodilator FEV1: FVC ratio 77%. Plethysmography: The total lung capacity 6.44 L, 90% predicted. The functional residual capacity is 2.94 L, 80% predicted. The residual volume is 2.30 L, 108% predicted. Diffusing capacity: The diffusing capacity unadjusted for hemoglobin and carboxyhemoglobin is 22.0, 72% predicted. The diffusing capacity adjusted for alveolar volume is 4.40, 99% predicted. Compared to previous pulmonary function testing on 02/19/2015 in which only a pre bronchodilator at spirometry was performed the pre bronchodilator FVC is unchanged from 4.04 L to 3.83 L. The pre bronchodilator FEV1 is unchanged from 3.10 L to 3.00 L. total lung capacity has increased from 5.24 L to 6.44 L. Functional residual capacity has increased from 1.76 L to 2.94 L. The residual volume has increased from 1.14 L to 2.30 L. The diffusing capacity uncorrected for hemoglobin and carboxyhemoglobin is unchanged from 20.0 to 22.0. The diffusing capacity adjusted for alveolar volume is unchanged from 4.44-4.40 Impression: The spirometry is normal without evidence of an obstructive abnormality. There is no significant improvement after inhaling a single dose of albuterol. The lung volumes are normal. The diffusing capacity unadjusted for hemoglobin and carboxyhemoglobin is mildly decreased and normalizes when adjusted for alveolar volume. in comparison to prior pulmonary function test there is a greater than anticipated time dependent increase in the total lung capacity, functional residual capacity and residual volume with no change in the FVC, FEV1 or diffusing capacity. Clinical correlation is recommended.
== END 2022-06-26 12:42 | disposition home or self-care (01) ==
LOC: ANHPFT 12:42
PROVIDERS: PCP Family Medicine; Visit Provider Nurse Practitioner Family
DX: R06.09 Other forms of dyspnea (principal); J44.9 Chronic obstructive pulmonary disease, unspecified
CPT/HCPCS: 94060; 94618; 94726; 94729

== ENCOUNTER 2022-09-29 11:31 | Outpatient (CLI) | payer OTHER, SELFPAY ==
[2022-09-29 13:04] LABS: LDL Cholesterol Direct 47 mg/dL
[2022-09-29 13:05] LABS: Alanine Aminotransferase 43 U/L (6-50); Albumin Level 4.2 g/dL (3.5-5.1); Alkaline Phosphatase 84 U/L (38-126); Anion Gap 8 mmol/L (8-16); Aspartate Amino Transferase 33 U/L (17-59); Bilirubin,Total 0.9 mg/dL (0.2-1.3); Blood Urea Nitrogen 19 mg/dL (9-20); Calcium 8.5 mg/dL (8.4-10.2); Carbon Dioxide 28 mmol/L (22-30); Chloride 105 mmol/L (98-107); Cholesterol 160 mg/dL (0-200); Estimated Glomerular Filt Rate > 60; Glucose 169 mg/dL (65-110); Potassium 4.2 mmol/L (3.4-5.0); Sodium 141 mmol/L (137-145)
[2022-09-29 13:19] LABS: Hemoglobin A1C 8.1 % (<5.7)
[2022-09-29 13:20] LABS: Triglycerides 678 mg/dL (<150)
== END 2022-09-29 11:32 | disposition home or self-care (01) ==
PROVIDERS: PCP Family Medicine; Visit Provider Physician Assistant
DX: E11.65 Type 2 diabetes mellitus with hyperglycemia (principal); Z79.4 Long term (current) use of insulin
CPT/HCPCS: 36415; 80053; 80061; 83036

== ENCOUNTER 2022-10-09 00:04 | Day surgery (SDC) | payer OTHER, SELFPAY ==
[2022-09-27 14:06] VITALS: BMI 36.3
--- NOTE | 2022-09-27 14:21 | PC.NURSE ---
Report to the Outpatient Waiting Room, entrance under the green pavilion located off [facility], at time 0630 on date 10/09/22_. Planned Procedure Time: _0830 Time changes happen often and if your time is changed the preop area will call you the afternoon before. - You and your visitor will be asked to self-screen and do not enter if you have any COVID symptoms. - Only one visitor is requested with a max of two and NO children visitors are allowed at this time. - The patient visitor may be requested to leave or wait in car when not with patient due to distancing restrictions. - A mask is optional within the hospital. Patients may have clear liquids (water, carbonated beverages, clear teas, apple juice) until 3 hours prior to surgery with a maximum of 20 ounces. - No food from midnight until time of surgery - Infants may have breast milk until 4 hours before surgery, infant formula 6 hours prior to surgery. - Children will be allowed to drink immediately following surgery. If applicable, please bring a bottle or sippy cup to assist with drinking. Juice, water, soda, and popsicles are readily available. For infants on formula, please bring formula the day of surgery. Pacifiers are allowed. Take the following medications with a SIP of water the morning of surgery: _Metoprolol_ Medications to discontinue per physician _multivitamin, omega 3, holding morning insulin, asking about aspirin/brilinta__ Date to take last dose_10/06/22_: dr naqvi Please no make-up, nail trinidadian, hairspray, perfume, deodorant, or body powder the day of surgery. No jewelry (including any body piercings) or valuables the day of surgery, leave them at home. Please take a shower or bath the night before, or the morning of, surgery with an antibacterial soap. Wear comfortable, loose fitting clothing. Children are encouraged to wear pajamas. - Jewelry must be removed prior to entering the operating room. Rings and piercings that are not removed may be cut off. - The hospital will not accept responsibility for valuables. - Please leave all valuables, including medications, at home the day of surgery. If you are going home after surgery, a licensed dedicated driver must drive you home. - NO public transportation without another adult if you receive anesthesia. - We recommend that an adult stay with you for 24 hours following discharge. - We also recommend that you do not drive, make important decision, drink alcoholic beverages, or take any drugs that were not prescribed by your health care provider for at least 24 hours after your discharge time. For Pediatric surgeries, we recommend two adults accompany the child home. Follow any additional instructions given to you from your surgeon. If you or anyone in your household have experienced Covid symptoms in the past week, please notify your surgeon or the nurse liaison at the phone number below for possible testing. Telephone instructions given to _Дмитрий Teixeira Jr. and asked if any additional questions and then verbalized understanding. Patient advised to call surgeon office or pre surgery nurse liaison [phone] if any additional questions.
[2022-10-09] VITALS (14 sets, daily range): BP systolic 124–139; BP diastolic 71–94; PULSE 62–81; RESP 12–24; TEMP 36.2–36.5; O2SAT 92–96
[2022-10-09] MEDS: ACETAMINOPHEN 500 MG TABLET 1000 MG PO (06:55)
[2022-10-09] MEDS: LACTATED RINGERS 1,000 ML 30 ML IV CONT ×2 (07:13→08:38)
--- NOTE | 2022-10-09 07:13 | PM.IMHP ---
H&P: HPI History of Present Illness Date/Time: 10/09/22 07:13 Chief Complaint: chronic sinusitis Narrative: this patieht has chronic sinusitis, nasal dyspnea Review of Systems Review of Systems: All systems reviewed & are unremarkable except as noted in HPI and below PMFSH Past Medical History Medical History CAD (coronary artery disease), [place] coronary artery Chronic diastolic heart failure Chronic pansinusitis Chronic systolic heart failure Diabetes mellitus with hyperglycemia Diverticulosis of intestine, part unspecified, without perforation or abscess with bleeding Dyslipidemia Essential hypertension Gastroenteritis Hx of ventricular tachycardia ICD (implantable cardioverter-defibrillator) in place Obesity (BMI 30.0-34.9) DU (obstructive sleep apnea) DU on CPAP Tobacco use disorder Surgical History Surgical History H/O colonoscopy with polypectomy 2014, repeat in 5 years History of heart bypass surgery X2 History of implantable cardioverter-defibrillator (ICD) placement Hx of coronary angioplasty Family History Family History Sibling Hypertension Family history of cardiovascular disease Mother Hypertension, Onset Age: 67 Social History Social History Social History: The patient is and lives with his . She is the durable power shirt creaser for healthcare. The patient has 1 daughter. The patient is currently not working and is applying for disability. The patient stated that he is down to smoking half a pack a cigarettes a day. He does not use any alcohol marijuana or illicit drugs. Code status full code Smoking packs per day: 0.5 Smoking cigarettes per day: 10.0 Years smoked: 40 Smoking pack-years: 20.00 Smoking status: Current every day smoker Tobacco type: cigarettes Second hand tobacco smoke exposure: No Alcohol intake: never Alcohol use details: Socially Substance use: never Substance use type: does not use Living arrangements: with family Occupation/Education: unemployed Additional occupation/education comments: Disability Gender identity (if verbalized by the patient): Male Sexual Orientation (if Verbalized by the Patient): Straight or Heterosexual Spiritual care concerns: No Meds Home Medications and Allergies Home Medications Medication Instructions Recorded Confirmed Type metoprolol tartrate 100 mg tablet 100 mg PO BID 08/30/19 10/09/22 History ticagrelor 90 mg tablet (Brilinta) 60 mg PO BID 08/30/19 10/09/22 History aspirin 81 mg chewable tablet 81 mg PO DAILY 10/18/21 10/09/22 History multivitamin 1 tablet PO DAILY 10/18/21 10/09/22 History omega-3 fatty acids-vitamin E 1 cap PO BID 11/16/21 10/09/22 History 1,000 mg capsule insulin glargine 100 unit/mL (3 20 unit (0.2 mL) subcut QPM #30 mL 06/29/22 10/09/22 Rx mL) subcutaneous pen (Lantus Solostar U-100 Insulin) metformin 500 mg tablet,extended 500 mg PO DAILY #90 tabs 07/10/22 10/09/22 Rx release 24 hr insulin lispro 100 unit/mL See Rx Instructions .Route 09/17/22 10/09/22 Rx subcutaneous pen (Humalog KwikPen .COMPLEX #15 mL (U-100) Insulin) blood-glucose sensor (FreeStyle #1 ea 10/05/22 10/05/22 Rx Chanel 3 Sensor device) dulaglutide 1.5 mg/0.5 mL 1.5 mg (0.5 mL) subcut WEEKLY #2 mL 10/05/22 10/09/22 Rx subcutaneous pen injector (Trulicity) losartan 50 mg tablet 50 mg PO DAILY 10/05/22 10/09/22 History pen needle, diabetic 32 gauge x #300 ea 10/05/22 10/05/22 Rx (BD Summer 2nd Gen Pen Needle) rosuvastatin 40 mg tablet 40 mg PO DAILY 10/05/22 10/09/22 History Allergies Allergy/AdvReac Type Severity Reaction Status Date / Time No Known Allergies Allergy Verified 10/09/22 06:50 Vital Signs Vital Signs - 2
[2022-10-09] MEDS: OXYMETAZOLINE HCL 0.05% NAS 15 ML BTL (*BKC) 1 SPRAY NASAL (07:15)
--- NOTE | 2022-10-09 07:15 | WPDHPUPDATE1 ---
History and Physical Update Update Date/Time: 10/09/22 07:15 History and Physical has been reviewed, including an updated exam of the patient. There are NO changes in the patient's condition. Risks, benefits, and alternatives have been discussed and questions answered. Patient agrees to proceed with procedure.
[2022-10-09 07:17] LABS: Glucose Point of Care 195 mg/dl (65-105)
--- NOTE | 2022-10-09 07:19 | WPDANESEPPF ---
Anes - Initial Pre Proc Eval Procedure: Operation Date: 10/09/22 08:30 Proposed Procedures p Bilateral Maxillary Antrostomy, Bilateral Turbinate Reduction - Sai Young MD s Endoscopic Septoplasty - Sai Young MD Date/Time: 10/09/22 07:19 Surgeon: Sai Young MD Pre Op Diagnosis: Chr Sinusitits, Dev Septum,Turbinate Hypertrophy Patient Data Age: 52 Gender: M Height: 1.8 m Weight: 119.6 kg Last Vital Signs Temp 36.2 C L 10/09/22 06:48 Pulse 72 10/09/22 06:48 Resp 16 10/09/22 06:48 BP 134/76 10/09/22 06:48 Pulse Ox 94 10/09/22 06:48 O2 Del Method Room Air 10/09/22 06:48 Allergies Allergy/AdvReac Type Severity Reaction Status Date / Time No Known Allergies Allergy Verified 10/09/22 06:50 Home Medications Medication Instructions Recorded Confirmed Type metoprolol tartrate 100 mg tablet 100 mg PO BID 08/30/19 10/09/22 History ticagrelor 90 mg tablet (Brilinta) 60 mg PO BID 08/30/19 10/09/22 History aspirin 81 mg chewable tablet 81 mg PO DAILY 10/18/21 10/09/22 History multivitamin 1 tablet PO DAILY 10/18/21 10/09/22 History omega-3 fatty acids-vitamin E 1 cap PO BID 11/16/21 10/09/22 History 1,000 mg capsule insulin glargine 100 unit/mL (3 20 unit (0.2 mL) subcut QPM #30 mL 06/29/22 10/09/22 Rx mL) subcutaneous pen (Lantus Solostar U-100 Insulin) metformin 500 mg tablet,extended 500 mg PO DAILY #90 tabs 07/10/22 10/09/22 Rx release 24 hr insulin lispro 100 unit/mL See Rx Instructions .Route 09/17/22 10/09/22 Rx subcutaneous pen (Humalog KwikPen .COMPLEX #15 mL (U-100) Insulin) blood-glucose sensor (FreeStyle #1 ea 10/05/22 10/05/22 Rx Chanel 3 Sensor device) dulaglutide 1.5 mg/0.5 mL 1.5 mg (0.5 mL) subcut WEEKLY #2 mL 10/05/22 10/09/22 Rx subcutaneous pen injector (Trulicity) losartan 50 mg tablet 50 mg PO DAILY 10/05/22 10/09/22 History pen needle, diabetic 32 gauge x #300 ea 10/05/22 10/05/22 Rx /32 (BD Summer 2nd Gen Pen Needle) rosuvastatin 40 mg tablet 40 mg PO DAILY 10/05/22 10/09/22 History Laboratory Tests 10/09/22 07:08 POC Capillary Glucose 195 mg/dl H mg/dl (65-105) Patient hx anesthesia problems: none Family hx anesthesia problems: none Results Review: All pre-operative results and documents have been reviewed as part of the pre-operative evaluation. [facility] Past Medical History Medical History CAD (coronary artery disease), [place] coronary artery Chronic diastolic heart failure Chronic pansinusitis Chronic systolic heart failure Diabetes mellitus with hyperglycemia Diverticulosis of intestine, part unspecified, without perforation or abscess with bleeding Dyslipidemia Essential hypertension Gastroenteritis Hx of ventricular tachycardia ICD (implantable cardioverter-defibrillator) in place Obesity (BMI 30.0-34.9) DU (obstructive sleep apnea) DU on CPAP Tobacco use disorder Surgical History Surgical History H/O colonoscopy with polypectomy 2014, repeat in 5 years History of heart bypass surgery X2 History of implantable cardioverter-defibrillator (ICD) placement Hx of coronary angioplasty Family History Family History Sibling Hypertension Family history of cardiovascular disease Mother Hypertension, Onset Age: 67 Social History Social History Social History: The patient is and lives with his . She is the durable power commercial attorney for healthcare. The patient has 1 daughter. The patient is currently not working and is applying for disability. The patient stated that he is down to smoking half a pack a cigarettes a day. He does not use any alcohol marijuana or illicit drugs. Code status full code Smoking packs per day: 0.5 Smoking cigarettes
[2022-10-09] MEDS: ceFAZolin 2 GM/D5W 50 ML 2 GM/50 ML BAG IVPB (07:27)
[2022-10-09] MEDS: LIDO 2%/EPINEPHRINE 1:100,000 50 ML VIAL 10 ML INFILTRATE (08:25)
[2022-10-09] MEDS: MUPIROCIN 2% OINT 22 GM TUBE 1 APPLIC XX (08:25)
--- NOTE | 2022-10-09 08:36 | P.OP_ITS ---
Procedure Note - Detailed Date of Procedure 10/09/22 Pre-op Diagnosis Chr Sinusitits, Dev Septum,Turbinate Hypertrophy Post-op Diagnosis Same Procedure Performed Bilateral maxillary antrostomy, endoscopic septoplasty, bilateral inferior t urbinoplasty Surgeon Sai Young MD Anesthesia General Indications Deviated septum, chronic sinusitis Findings Severe right septal deviation, chronic maxillary sinusitis, crabtree splints and nasopore placed Description of Procedure After obtaining informed consent and proper site verification the patient was brought to the operating room and placed on the operating table in the supine position. They were placed under general endotracheal anesthesia by the anesthesia provider. The patient was then draped in standard fashion for septoplasty and turbinoplasty. A timeout was performed and the correct patient and procedure were verified. The nasal cavity was injected with 1% lidocaine with 1-100,000 epinephrine and packed with afrin-soaked cottonoid pledgets. ? Attention was then directed to the nasal septum. A hemitransfixion incision was made in the left caudal septum and a mucoperichondrial flap was elevated in the usual fashion. The flap was elevated under endoscopic visualization and the remainder of the case was performed with endoscopic assistance. Using a D- knife, an incision was made through the cartilaginous septum with care to preserve the appropriate caudal and dorsal ?L-strut? of cartilage. The cartilage was then disarticulated from the bony-cartilaginous junction and the deviated cartilage was removed. Further deviated bone and cartilage was removed from the maxillary crest and posterior bony septum with care to avoid injury to the mucoperichondrial flap using a combination of dissection and Christian- Debora forceps. Once this was completed, the hemitransfixion incision was closed using simple interrupted 4-0 chromic suture. A quilting stitch to reapproximate the mucoperichondrial flaps was then placed using 4-0 plain gut suture on a Wm needle. ? Next attention was directed to the turbinates. Using a 0? telescope and 2mm turbinate blade microdebrider, a stab incision was made in the anterior face of the turbinate and dissection was carried posterior to perform submucosal resection. Next the turbinate was outfractured using a blunt instrument. A similar procedure was then performed on the right-hand side without difficulty. Attention was then directed to the maxillary sinuses. The middle turbinates were medialized bilaterally. The uncinate process was reflected anteriorly. Using a kory probe, the natural os of the maxillary sinus was identified and entered and widened. Uncinectomy was performed bilaterally using backbiter and microdebrider. Maxillary antrostomies were created bilaterally and widened with microdebrider and backbiter. Nasopore was then packed into the meatal space bilaterally. Lastly, crabtree splints covered in mupirocin ointment were placed in the nasal cavity and secured to the membranous septum using a 3-0 Prolene suture. ?The patient was awakened from general anesthesia extubated in the operating room, and transported to the recovery room in stable condition without complication. Estimated Blood Loss 20 Drains No Packing Yes (nasopore and crabtree splints) Pathology None sent Complications No immediate complications Condition Stable Disposition PACU
[2022-10-09 08:59] LABS: Glucose Point of Care 154 mg/dl (65-105)
[2022-10-09] MEDS: fentaNYL CITRATE INJ (*CRX) 100 MCG/2 ML VIAL 25 MCG IV PUSH ×2 (09:46→09:48)
[2022-10-09] MEDS: oxyCODONE HCL (*CRX) 5 MG TAB IR PO (10:50)
== END 2022-10-09 11:33 | disposition home or self-care (01) ==
PROVIDERS: PCP Family Medicine; Visit Provider Otolaryngology
PROC: (CPT 31256; principal; 2022-10-09 08:30)
PROC: (CPT 30520; 2022-10-09 08:30)
DX: J32.0 Chronic maxillary sinusitis (principal); J34.2 Deviated nasal septum; J34.3 Hypertrophy of nasal turbinates; I11.0 Hypertensive heart disease with heart failure; I50.42 Chronic combined systolic (congestive) and diastolic (congestive) heart failure; I25.10 Atherosclerotic heart disease of native coronary artery without angina pectoris; E11.9 Type 2 diabetes mellitus without complications; G47.33 Obstructive sleep apnea (adult) (pediatric); Z95.810 Presence of automatic (implantable) cardiac defibrillator; Z95.1 Presence of aortocoronary bypass graft; F17.210 Nicotine dependence, cigarettes, uncomplicated; E66.9 Obesity, unspecified; Z68.36 Body mass index [BMI] 36.0-36.9, adult; Z79.4 Long term (current) use of insulin; Z79.01 Long term (current) use of anticoagulants; Z79.84 Long term (current) use of oral hypoglycemic drugs; Z79.82 Long term (current) use of aspirin; Z79.899 Other long term (current) drug therapy
CPT/HCPCS: 31256; 30520; 30140; 82948; A9270; J0330; J0690; J1100; J2250; J2370; J2405; J2704; J3010; J7120

== ENCOUNTER 2022-11-06 11:40 | Outpatient (CLI) | payer OTHER, SELFPAY ==
[2022-11-06 13:10] LABS: Alanine Aminotransferase 50 U/L (6-50); Albumin Level 4.8 g/dL (3.5-5.1); Alkaline Phosphatase 107 U/L (38-126); Anion Gap 8 mmol/L (8-16); Aspartate Amino Transferase 37 U/L (17-59); Bilirubin,Total 0.9 mg/dL (0.2-1.3); Blood Urea Nitrogen 14 mg/dL (9-20); Calcium 9.3 mg/dL (8.4-10.2); Carbon Dioxide 27 mmol/L (22-30); Chloride 101 mmol/L (98-107); Cholesterol 150 mg/dL (0-200); Estimated Glomerular Filt Rate > 60; Glucose 146 mg/dL (65-110); HDL Direct 34 mg/dL; Potassium 4.1 mmol/L (3.4-5.0); Sodium 136 mmol/L (137-145); Triglycerides 388 mg/dL (<150)
[2022-11-06 13:21] LABS: LDL Cholesterol Direct 47 mg/dL
[2022-11-06 14:29] LABS: MALB Creatinine Ratio 455.7 mg/g (0-30); Microalbumin Urine Random 615.2 mg/L (0-16.7)
[2022-11-06 17:02] LABS: Hemoglobin A1C 8.3 % (<5.7)
== END 2022-11-06 11:41 | disposition home or self-care (01) ==
LOC: ANHLAB 11:41
PROVIDERS: PCP Family Medicine; Visit Provider Family Medicine
DX: E11.9 Type 2 diabetes mellitus without complications (principal); E78.2 Mixed hyperlipidemia; I10 Essential (primary) hypertension
CPT/HCPCS: 36415; 80053; 80061; 82043; 83036

== ENCOUNTER 2023-02-27 15:18 | Outpatient (CLI) | payer OTHER, SELFPAY ==
[2023-02-27 16:18] LABS: Anion Gap 7 mmol/L (8-16); Blood Urea Nitrogen 16 mg/dL (9-20); Calcium 9.1 mg/dL (8.4-10.2); Carbon Dioxide 29 mmol/L (22-30); Chloride 102 mmol/L (98-107); Estimated Glomerular Filt Rate > 60; Glucose 120 mg/dL (65-110); Potassium 3.9 mmol/L (3.4-5.0); Sodium 138 mmol/L (137-145)
== END 2023-02-27 15:19 | disposition home or self-care (01) ==
LOC: ANHLAB 15:20
PROVIDERS: PCP Family Medicine; Visit Provider Internal Medicine Cardiovascular Disease
DX: I50.22 Chronic systolic (congestive) heart failure (principal); I25.5 Ischemic cardiomyopathy
CPT/HCPCS: 36415; 80048

== ENCOUNTER 2023-06-15 13:22 | Outpatient (CLI) | payer OTHER, SELFPAY ==
[2023-06-15 13:55] LABS: Basophils Absolute Auto 0.1 K/mm3 (0.0-0.1); Basophils Percent Auto 0.9 % (0.2-1.2); Eosinophils Absolute Auto 0.4 K/mm3 (0-0.3); Eosinophils Percent Auto 3.8 % (0-4.4); Hematocrit 49.4 % (42.0-52.0); Hemoglobin 17.2 g/dL (14.0-18.0); Immature Granulocyte Absolute 0.06 K/mm3 (0.00-0.031); Immature Granulocyte Percent A 0.6 % (0-0.5); Lymphocytes Absolute Auto 3.15 K/mm3 (0.9-3.2); Lymphocytes Percent Auto 31.3 % (18.3-44.2); Mean Corpuscular HGB Conc 34.8 g/dl (32-36); Mean Corpuscular Volume 91.8 fl (80-100); Mean Platelet Volume 10.7 fl (7.4-10.4); Monocytes Absolute Auto 0.9 K/mm3 (0.1-0.6); Monocytes Percent Auto 8.5 % (2.6-8.5); Neutrophils Absolute Auto 5.5 K/mm3 (1.3-6.7); Neutrophils Percent Auto 54.9 % (45.5-73.1); Platelet Count Result 177 k/mm3 (150-375); Red Blood Count 5.38 M/mm3 (4.6-6.20); Red Cell Distribution Width 13.3 % (11.5-14.5); White Blood Count 10.1 K/mm3 (4.5-10.0)
[2023-06-15 14:16] LABS: Alanine Aminotransferase 40 U/L (6-50); Albumin Level 4.8 g/dL (3.5-5.1); Alkaline Phosphatase 75 U/L (38-126); Anion Gap 8 mmol/L (8-16); Aspartate Amino Transferase 37 U/L (17-59); Bilirubin,Total 0.9 mg/dL (0.2-1.3); Blood Urea Nitrogen 18 mg/dL (9-20); Calcium 9.2 mg/dL (8.4-10.2); Carbon Dioxide 26 mmol/L (22-30); Chloride 104 mmol/L (98-107); Cholesterol 158 mg/dL (0-200); Estimated Glomerular Filt Rate > 60; Glucose 107 mg/dL (65-110); HDL Direct 37 mg/dL; Sodium 138 mmol/L (137-145); Triglycerides 292 mg/dL (<150)
[2023-06-15 14:17] LABS: Hemoglobin A1C 8.1 % (<5.7)
[2023-06-15 14:27] LABS: LDL Cholesterol Direct 68 mg/dL
== END 2023-06-15 13:23 | disposition home or self-care (01) ==
LOC: ANHLAB 13:23
PROVIDERS: PCP Family Medicine; Visit Provider Nurse Practitioner Gerontology
DX: I25.10 Atherosclerotic heart disease of native coronary artery without angina pectoris (principal); E11.65 Type 2 diabetes mellitus with hyperglycemia; I10 Essential (primary) hypertension
CPT/HCPCS: 36415; 80053; 80061; 83036; 85025

== ENCOUNTER 2023-10-15 11:48 | Outpatient (CLI) | payer OTHER, SELFPAY ==
[2023-10-15 13:29] LABS: Alanine Aminotransferase 58 U/L (6-50); Albumin Level 4.4 g/dL (3.5-5.1); Alkaline Phosphatase 85 U/L (38-126); Anion Gap 9 mmol/L (8-16); Aspartate Amino Transferase 39 U/L (17-59); Bilirubin,Total 1.2 mg/dL (0.2-1.3); Blood Urea Nitrogen 21 mg/dL (9-20); Calcium 8.9 mg/dL (8.4-10.2); Carbon Dioxide 24 mmol/L (22-30); Chloride 102 mmol/L (98-107); Estimated Glomerular Filt Rate > 60; Glucose 177 mg/dL (65-110); Potassium 4.1 mmol/L (3.4-5.0); Sodium 135 mmol/L (137-145)
[2023-10-15 14:05] LABS: Hemoglobin A1C 10.6 % (<5.7)
== END 2023-10-15 11:49 | disposition home or self-care (01) ==
LOC: ANHLAB 11:49
PROVIDERS: PCP Family Medicine; Visit Provider Physician Assistant
DX: E11.21 Type 2 diabetes mellitus with diabetic nephropathy (principal)
CPT/HCPCS: 36415; 80053; 83036

== ENCOUNTER 2024-02-14 12:43 | Outpatient (CLI) | payer OTHER, SELFPAY ==
[2024-02-14 13:04] LABS: Basophils Absolute Auto 0.1 K/mm3 (0.0-0.1); Basophils Percent Auto 0.6 % (0.2-1.2); Eosinophils Absolute Auto 0.2 K/mm3 (0-0.3); Eosinophils Percent Auto 2.4 % (0-4.4); Hematocrit 48.2 % (42.0-52.0); Hemoglobin 16.9 g/dL (14.0-18.0); Immature Granulocyte Absolute 0.04 K/mm3 (0.00-0.031); Immature Granulocyte Percent A 0.4 % (0-0.5); Lymphocytes Absolute Auto 2.56 K/mm3 (0.9-3.2); Lymphocytes Percent Auto 27.4 % (18.3-44.2); Mean Corpuscular HGB Conc 35.1 g/dl (32-36); Mean Corpuscular Hemoglobin 30.6 pg (26-34); Mean Corpuscular Volume 87.3 fl (80-100); Mean Platelet Volume 11.1 fl (7.4-10.4); Monocytes Absolute Auto 0.8 K/mm3 (0.1-0.6); Neutrophils Absolute Auto 5.7 K/mm3 (1.3-6.7); Neutrophils Percent Auto 61.2 % (45.5-73.1); Platelet Count Result 160 k/mm3 (150-375); Red Blood Count 5.52 M/mm3 (4.6-6.20); Red Cell Distribution Width 13.4 % (11.5-14.5); White Blood Count 9.3 K/mm3 (4.5-10.0)
[2024-02-14 13:23] LABS: Alanine Aminotransferase 40 U/L (6-50); Albumin Level 4.6 g/dL (3.5-5.1); Alkaline Phosphatase 75 U/L (38-126); Anion Gap 10 mmol/L (4-12); Aspartate Amino Transferase 35 U/L (17-59); Bilirubin,Total 1.1 mg/dL (0.2-1.3); Blood Urea Nitrogen 17 mg/dL (9-20); Calcium 9.4 mg/dL (8.4-10.2); Carbon Dioxide 24 mmol/L (22-30); Chloride 106 mmol/L (98-107); Cholesterol 133 mg/dL (0-200); Estimated Glomerular Filt Rate > 60; Glucose 114 mg/dL (65-110); HDL Direct 35 mg/dL; Potassium 4.2 mmol/L (3.4-5.0); Sodium 140 mmol/L (137-145); Triglycerides 297 mg/dL (<150)
[2024-02-14 13:35] LABS: LDL Cholesterol Direct 57 mg/dL
[2024-02-14 14:04] LABS: Hemoglobin A1C 7.9 % (<5.7)
[2024-02-15 12:58] LABS: Microalbumin Urine Random 130.7 mg/L (0-16.7)
[2024-02-15 13:13] LABS: Creatinine Urine 154.3 mg/dL; MALB Creatinine Ratio 84.7 mg/g (0-30)
== END 2024-02-14 12:44 | disposition home or self-care (01) ==
LOC: ANHLAB 12:44
PROVIDERS: PCP Family Medicine; Visit Provider Family Medicine
DX: E11.9 Type 2 diabetes mellitus without complications (principal); I10 Essential (primary) hypertension; E78.2 Mixed hyperlipidemia
CPT/HCPCS: 36415; 80053; 80061; 82043; 83036; 85025

== ENCOUNTER 2024-06-05 14:46 | Outpatient (CLI) | payer MEDICARE, OTHER, SELFPAY ==
[2024-06-05 16:01] LABS: Alanine Aminotransferase 49 U/L (6-50); Albumin Level 4.9 g/dL (3.5-5.1); Alkaline Phosphatase 68 U/L (38-126); Anion Gap 13 mmol/L (4-12); Aspartate Amino Transferase 38 U/L (17-59); Bilirubin,Total 0.7 mg/dL (0.2-1.3); Blood Urea Nitrogen 16 mg/dL (9-20); Calcium 9.7 mg/dL (8.4-10.2); Carbon Dioxide 24 mmol/L (22-30); Chloride 102 mmol/L (98-107); Estimated Glomerular Filt Rate > 60; Glucose 153 mg/dL (65-110); Potassium 4.1 mmol/L (3.4-5.0); Sodium 139 mmol/L (137-145)
== END 2024-06-05 14:47 | disposition home or self-care (01) ==
LOC: ANHLAB 14:47
PROVIDERS: PCP Family Medicine; Visit Provider Student in an Organized Health Care Education/Training Program
DX: E11.21 Type 2 diabetes mellitus with diabetic nephropathy (principal); I10 Essential (primary) hypertension
CPT/HCPCS: 36415; 80053; 83036

== ENCOUNTER 2024-07-01 10:02 | Outpatient (CLI) | payer OTHER, MEDICARE, SELFPAY ==
--- NOTE | ~2024-07-01 | XR_ITS ---
XR elbow LT min 3V Ordering provider: Shilpi Yoon PA-C History: . M25.522 - Pain in left elbow . Comparison: None. FINDINGS: BONES: No acute fracture or dislocation. JOINT SPACES: Normal. SOFT TISSUES: Normal. No definite joint effusion. IMPRESSION: No acute osseous abnormality left elbow. Reviewed, dictated and finalized at location A.
== END 2024-07-01 10:03 | disposition home or self-care (01) ==
PROVIDERS: PCP Family Medicine; Visit Provider Physician Assistant
DX: M25.522 Pain in left elbow (principal)
CPT/HCPCS: 73080

== ENCOUNTER 2024-09-30 10:57 | Outpatient (CLI) | payer MEDICARE, OTHER, SELFPAY ==
--- NOTE | ~2024-09-30 | XR_ITS ---
EXAMINATION: XR chest 2V 09/30/2024 11:20 INDICATION: Cough. COPD. PROCEDURE: 2 view chest COMPARISON: Comparison to multiple prior studies sequentially, with oldest reviewed study dated 05/2019. FINDINGS: The lungs are clear. Status post median sternotomy for CABG. Pacemaker leads stable. The ca rdiomediastinal silhouette is within normal limits. There are no pleural effusions. There is no pne umothorax suspected. IMPRESSION: 1: NO ACUTE CARDIOPULMONARY DISEASE. Reviewed, dictated and finalized at location A. [employer]
--- OUTSIDE RECORDS SUMMARY | 2024-10-02 17:39 | XMS_ITS | Clinical Summary ---
Author Organization [facility] Address [address] [place] [address] Phone Care Team Providers Care Flocculator Operator Name Role Phone Unavailable Unavailable Unavailable Reason for Visit and Chief Complaint CHECK UP Plan of Treatment No Plan of Treatment Recorded Assessments Includes: Assessments from this encounter No Assessments Recorded Medical Equipment - Implanted Devices Includes: Current Devices No Medical Equipment Recorded Medications Administered Includes: Administered Medications from this encounter No Administered Medications Recorded Results Includes: Results discussed during this encounter No Results Recorded For Specified Dates History of Present Illness Includes: History of Present Illness from this encounter No History of Present Illness Recorded Social History No Social History Recorded - Smoking Status Unknown Medical History Includes: Medical History addressed during this encounter No Medical History Recorded Family History Includes: Family History addressed during this encounter No Family History Recorded Review of Systems Includes: Review of Systems from this encounter No Review of Systems Recorded Mental Status Includes: Mental Status from this encounter No Mental Status Recorded Functional Status Includes: Functional Status from this encounter No Functional Status Recorded Physical Exam Includes: Physical Exam from this encounter No Physical Exam Recorded Allergies Includes: Active Allergies No Known Allergies Encounters Encounter Provider Location Date Check-In Time Check-Out Time Diagnosis CHECK UP BRANDIE MAYERS D.O. [facility] 04/22/ 8 3:29PM 11:59PM Clinical Notes Includes: Clinical Notes from this encounter No Clinical Notes Recorded
--- OUTSIDE RECORDS SUMMARY | 2024-10-02 17:39 | XMS_ITS | Clinical Summary ---
Author Organization [facility] Address [address] [place] [address] Phone Care Team Providers Care Division Commander Name Role Phone Unavailable Unavailable Unavailable Reason for Visit and Chief Complaint CHART UPDATE Plan of Treatment No Plan of Treatment [...] History of Present Illness from this encounter ROYAL BEDOYA is a 38 year old male. - Previous history of cardiovascular symptoms. 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 [facility] 02/12/20 09 4:35PM 11:59PM Clinical Notes Includes: Clinical Notes from this encounter No Clinical Notes Recorded
--- OUTSIDE RECORDS SUMMARY | 2024-10-02 17:39 | XMS_ITS | Continuity of Care Document ---
Author Name [facility] Organization [facility] Care Team Providers Care Boiler Or Engine Operator Name Role Phone [facility] Unavailable Unavailable Problems Combined list of problems from Department of Defense and Veterans Affairs facilities. It does not include entries that were removed or entered in error. Problem Status Onset Date Problem Type Date of Resolution Comments Source visit for: services physical Inactive Condition DoD visit for: issue medical certificate Inactive Condition PRT Waiver accomplished DoD abdominal pain Inactive Condition [facility] visit for: administrative purpose Inactive Condition [facility] visit for: postsurgical exam Inactive Condition [facility] sore throat acute Inactive Condition NO N-SPECIFIC SORETHROAT. PROBABLE RELATED TO ALLERGIES VS. GERD. NO SIGNS OF INFECTION. D/C TOBACCO. PUSH ORAL FLUIDS. DoD nicotine dependence Active Condition [facility] compression arthralgia - hand Active Condition [facility] limb pain Inactive Condition [facility] nonspecific abnormal findings Active Condition [facility] Patient Education Active Condition [facility] visit for: occupational health / fitness exam Inactive Condition [facility] visit for: ears, nose, and throat exam Inactive Condition DoD muscle spasm Active Condition DoD nonspecific abnormal findings Active Condition lump in ri ght side of chest [id number] to GI for f/u. F/u with PCM after GI evaluation DoD pharyngitis Inactive Condition [facility] assess patient condition work-related occupational disease Inactive Condition [facility] Medications Combined list of outpatient medications from Department of Defense and Veterans Affairs facilities.Medications provided include 1) outpatient medications from the last 15 months, and 2) patient-reported medications. Medication Details Route Status Patient Instructions Prescription Expires Prescription Number Last Dispense Date Ordering Provider Order Date Order Qty Source BRILINTA (ticagrelor ), 60 MG, TABLET, ORAL, ASTRAZENECA , 60 ea. BOTTLE Active [id number] 4 2023 180 Pharmac y Data Transac tion Service Facilit y ENTRESTO (sacubitril /valsartan) , 97MG-103MG, TABLET, ORAL, NOVARTIS, 60 ea. BOTTLE Active [id number] 4 2023 180 Pharmac y Data Transac tion Service Facilit y ENTRESTO (sacubitril /valsartan) , 97MG-103MG, TABLET, ORAL, NOVARTIS, 60 ea. BOTTLE Active [id number] 4 2023 180 Pharmac y Data Transac tion Service Facilit y FREESTYLE ADAMA 3 SENSOR (flash glucose sensor), KIT, MISCELL, ORR DIABETES, 1 ea. KIT Active [id number] 4 2023 6 Pharmac y Data Transac tion Service Facilit y IMIQUIMOD (IMIQUIMOD) , 5 %, CREAM PACK, TOPICAL, [employer] 24 ea. PACKET Active [id number] 4 2023 12 Pharmac y Data Transac tion Service Facilit y INSULIN LISPRO KWIKPEN U-100 (insulin lispro), 100/ML, INSULN PEN, SUBCUT, [employer]IA [employer] 3 ml SYRINGE Active [id number] 2023 30 Pharmac y Data Transac tion Service Facilit y INSULIN LISPRO KWIKPEN U-100 (insulin lispro), 100/ML, INSULN PEN, SUBCUT, [employer] 3 ml SYRINGE Active [id number] 2023 30 Pharmac y Data Transac tion Service Facilit y JARDIANCE (EMPAGLIFLO ZIN), 10 MG, TABLET, ORAL, BOEHRINGER ING., 30 ea. BOTTLE Cancele d [id number] : 2023 0 Pharmac y Data Transac tion Service Facilit y JARDIANCE (EMPAGLIFLO ZIN), 10 MG, TABLET, ORAL, BOEHRINGER ING., 30 ea. BOTTLE Cancele d [id number] : 2023 0 Pharmac y Data Transac tion Service Facilit y JARDIANCE (EMPAGLIFLO ZIN), 10 MG, TABLET, ORAL, BOEHRINGER ING., 30 ea. BOTTLE Active [id number] 4 2023 30 Pharmac y Data Transac tion Service Facilit y JARDIANCE (EMPAGLIFLO ZIN), 10 MG, TABLET, ORAL, BOEHRINGER ING., 90 ea. BOTTLE Active [id number] 4 2023 90 Pharmac y Data Transac tion Service Facilit y LANTUS SOLOSTAR (INSULIN GLARGINE,[facility] ), 100/ML (3), INSULN PEN, SUB-Q, SANOFI-AVEN TIS, 3 ml SYRINGE Active [id number] 2023 30 Pharmac y Data Transac tion Service Facilit y LANTUS SOLOSTAR (INSULIN GLARGINE,[facility] ), 100/ML (3), INSULN PEN, SUB-Q, SANOFI-AVEN TIS, 3 ml SYRINGE Active [id number] 2023 15 Pharmac y Data Transac tion Service Facilit y LANTUS SOLOSTAR (INSULIN GLARGINE,[facility].ANLOG ), 100/ML (3), INSULN PEN, SUB-Q, SANOFI-AVEN TIS, 3 ml SYRINGE Active [id number] 2023 15 Pharmac y Data Transac tion Service Facilit y METOPROLOL TARTRATE (metoprolol tartrate), 100 MG, TABLET, ORAL, [employer] 1000 ea. BOTTLE Active [id number] 4 2023 180 Pharmac y Data Transac tion Service Facilit y RUSS 2ND GEN PEN NEEDLE (pen needle, diabetic), 32GX 5/32 , DIS NEEDLE, MISCELL, BD DIABETES/EM B, 100 ea. BOX Active [id number] 4 2023 300 Pharmac y Data Transac tion Service Facilit y RUSS 2ND GEN PEN NEEDLE (pen needle, diabetic), 32GX 5/32 , DIS NEEDLE, MISCELL, BD DIABETES/EM B, 100 ea. BOX Cancele d [id number] : 2022 0 Pharmac y Data Transac tion Service Facilit y SPIRONOLACT ONE (spironolac tone), 25 MG, TABLET, ORAL, SOFIA RANCH CT, 100 ea. BOTTLE Active [id number] 2023 90 Pharmac y Data Transac tion Service Facilit y SPIRONOLACT ONE (spironolac tone), 25 MG, TABLET, ORAL, SOFIA RANCH CT, 100 ea. BOTTLE Active [id number] 4 2023 90 Pharmac y Data Transac tion Service Facilit y SPIRONOLACT ONE (SPIRONOLAC TONE), 25MG, TABLET, ORAL, [employer], 1000 ea. BOTTLE Active [id number] 2022 90 Pharmac y Data Transac tion Service Facilit y Allergies, Adverse Reactions, Alerts Combined list of allergies from Department of Defense and Veterans Affairs facilities. It does not include entries that were removed or entered in error. Substance Category Reaction Severity Reaction type Status Date Reported Comments Source No Known Allergies Drug allergy (disorder) active 06/05/2006 [facility] [place] Immunizations Combined list of available immunizations from the Department of Defense and Veterans Affairs facilities. Immunization Series Date Given Administered By Site Reaction Lot Number CVX Code Drug Evp Head Of [employer] Experience Strategy Status Comments Source influenza virus vaccine,split 2004 [id number] Unknown complet ed influenza virus vaccine,s plit 07/31/05 Given Ambulat ory Pharmac y typhoid vaccine, parenteral 2003 UNKNOWN 41 Unknown complet ed typhoid vaccine, parentera l 10/16/03 Given Ambulat ory Pharmac y hepatitis A adult vaccine 1998 UNKNOWN 52 Unknown complet ed hepatitis A adult vaccine 01/10/99 Given Ambulat ory Pharmac y measles/mumps /rubella virus vaccine 1997 UNKNOWN 03 Unknown complet ed measles/m umps/rube lla virus vaccine 04/22/98 Given Ambulat ory Pharmac y yellow fever vaccine 1995 UNKNOWN 37 Unknown complet ed yellow fever vaccine 10/17/95 Given Ambulat ory Pharmac y tetanus-dipht h toxoids (Td) adult/adol 1995 UNKNOWN 09 Unknown complet ed tetanus-d iphth toxoids (Td) adult/ado l 10/16/95 Given Ambulat ory Pharmac y poliovirus vaccine, live, oral 1986 UNKNOWN 02 Unknown complet ed polioviru s vaccine, live, oral 10/30/86 Given Ambulat ory Pharmac y Vital Signs Combined list of inpatient and outpatient Vital Signs from Department of Defense and Veterans Affairs, ranging from 12 months to all on record, depending upon the facility. Vital Sign Value Date Comments Source No data available for this section Ambulatory Pharmacy Encounters Combined list of: 1) Encounters from Department of [facility] Affairs facilities going back up to thelast 18 months. 2) Encounters from the Department of [facility] facilities going back up to 280 months. Location Location Details Encounter Type Encounter Number Reason For Visit Attending Provider ADM Date DC Date Status Disposition Source [place]) OUTPATIENT [id number] kwesi HORACE FLAHERTY Danae 08/23 Released w/o Limitations [place]) [place] OUTPATIENT [id number] SORE THROAT FULWADHVA, OZ P 09/29 Released w/o Limitations [place] OUTPATIENT [id number] F/U LUMP ON CHEST FULWADHVA, OZ P 10/05 Released w/o Limitations [place] OUTPATIENT [id number] upper back spasms, denies trauma JEREMIAH WORRELL 11/28 Sick at Home/Quarter [place]) [place]) OUTPATIENT [id number] hearing conserv ation NA JACKSON 04/11 Released w/o Limitations [place]) [place]) OUTPATIENT [id number] LUMP IN CHEST SRAVAN GONSALES A 04/12 Released w/o Limitations [place] OUTPATIENT [id number] F/U XRAY SRAVAN GONSALES A 04/13 Released w/o Limitations [place] OUTPATIENT [id number] MERARY PEREZ 05/02 Released w/o Limitations [place] OUTPATIENT [id number] ACUTE ABDOMIN AL PAIN SRAVAN GONSALES 05/10 Released with Work/Duty Limitations [place] OUTPATIENT [id number] f/u er DRU SRAVAN A 05/15 Sick at Home/Quarter [place] OUTPATIENT [id number] PRT SCREENI JEREMIAH DAVENPORT 06/05 Released with Work/Duty Limitations [place] OUTPATIENT [id number] retirem ent MAUDE IVEY 06/12 Released w/o Limitations [place]) Procedures Combined list of: 1) Procedures from Department of Veterans Affairs facilities going back up to thelast 18 months, not all VA non-surgical procedures are included; 2) All procedures from the Department of Defense facilities. Procedure Procedure Type Code Date Perfomer Comments Sourc e No data available for this section Ambulato ry Pharmacy Physician Supervised Services Provision Of Educational Supplies Physician Supervised Services Provision Of Educational Supplies 14852 6 SRAVAN GONSALES DoD Threshold Audiogram (Pure Tone) Threshold Audiogram (Pure Tone) 05359 6 NA DOS SANTOS DoD PURE TONE AUDIOMETRY (THRESHOLD); AIR ONLY 6 DoD COMPREHENSIVE AUDIOMETRY THRESHOLD EVALUATION AND SPEECH RECOGNITION (62410 AND 34908 COMBINED) 5 DoD PURE TONE AUDIOMETRY (THRESHOLD); AIR ONLY 4 DoD COMPREHENSIVE AUDIOMETRY THRESHOLD EVALUATION AND SPEECH RECOGNITION (11588 AND 11533 COMBINED) 4 [facility] COMPREHENSIVE AUDIOMETRY THRESHOLD EVALUATION AND SPEECH RECOGNITION (70510 AND 23288 COMBINED) 4 DoD SCREENING TEST OF VISUAL ACUITY, QUANTITATIVE, BILATERAL 4 DoD COMPREHENSIVE AUDIOMETRY THRESHOLD EVALUATION AND SPEECH RECOGNITION (10058 AND 35953 COMBINED) 3 DoD FITTING OF SPECTACLES, EXCEPT FOR APHAKIA; MONOFOCAL 2 DoD COMPREHENSIVE AUDIOMETRY THRESHOLD EVALUATION AND SPEECH RECOGNITION (63895 AND 02586 COMBINED) 2 DoD UNLISTED DIAGNOSTIC RADIOGRAPHIC PROCEDURE 2 DoD PREPARATION OF REPORT OF PATIENT'S PSYCHIATRIC STATUS, HISTORY, TREATMENT, OR PROGRESS (OTHER THAN FOR LEGAL OR CONSULTATIVE PURPOSES) FOR OTHER INDIVIDUALS, AGENCIES, OR INSURANCE CARRIERS 1 DoD INTERACTIVE GROUP PSYCHOTHERAPY 0 DoD INTERACTIVE GROUP PSYCHOTHERAPY 0 DoD INTERACTIVE GROUP PSYCHOTHERAPY 0 DoD INTERACTIVE GROUP PSYCHOTHERAPY 0 DoD INTERACTIVE GROUP PSYCHOTHERAPY 0 DoD INTERACTIVE GROUP PSYCHOTHERAPY 0 DoD GROUP PSYCHOTHERAPY (OTHER THAN OF A MULTIPLE-FAMILY GROUP) 0 DoD GROUP PSYCHOTHERAPY (OTHER THAN OF A MULTIPLE-FAMILY GROUP) 0 DoD GROUP PSYCHOTHERAPY (OTHER THAN OF A MULTIPLE-FAMILY GROUP) 0 DoD GROUP PSYCHOTHERAPY (OTHER THAN OF A MULTIPLE-FAMILY GROUP) 0 DoD REFERRAL FOR PSYCHIATRIC AFTERCARE 0 DoD REFERRAL FOR PSYCHOTHERAPY 0 DoD OTHER COUNSELLING 0 DoD ALCOHOLISM COUNSELLING 0 DoD DRUG ADDICTION COUNSELLING 0 DoD OTHER GROUP THERAPY 03/21/20 0 0 DoD OTHER INDIVIDUAL PSYCHOTHERAPY 0 DoD SUPPORTIVE VERBAL PSYCHOTHERAPY 0 DoD EXPLORATORY VERBAL PSYCHOTHERAPY 0 DoD CRISIS INTERVENTION 03/21/20 0 0 DoD BEHAVIOR THERAPY 0 DoD OTHER PSYCHIATRIC SOMATOTHERAPY 0 DoD OTHER PSYCHIATRIC INTERVIEW AND EVALUATION 0 DoD PSYCHIATRIC MENTAL STATUS DETERMINATION 0 DoD PSYCHOLOGIC MENTAL STATUS DETERMINATION, NOT OTHERWISE SPECIFIED 0 DoD OTHER PSYCHOLOGIC EVALUATION AND TESTING 0 DoD REHABILITATION, NOT ELSEWHERE CLASSIFIED 0 DoD OCCUPATIONAL THERAPY 0 DoD RECREATIONAL THERAPY 0 DoD GENERAL PHYSICAL EXAMINATION 0 DoD ALCOHOL DETOXIFICATION 0 DoD INDIVIDUAL PSYCHOTHERAPY, INSIGHT ORIENTED, BEHAVIOR MODIFYING AND/OR SUPPORTIVE, IN AN OFFICE OR OUTPATIENT FACILITY, APPROXIMATELY 75 TO 80 MINUTES [id number] WITH THE PATIENT 0 DoD Social History Combined list of available smoking, tobacco, and other social history from Department of Defense and Veterans Affairs facilities. Social History Type Response Date Comment Sourc e Sexual Orientation Ambula tory Pharmacy Gender identity Ambulator y Pharmacy Male Ambulatory Pha rmacy This section is an empty soc ial history section. DoD Assessment and Plan Combined list of future care activities from Department of Defense and Veterans Affairs facilities (e.g., assessment and plan notes, appointments, orders, and referrals). Additional future care activities may be listed in the Plan of Care section. Result Assessment and Plan Date Source Assessment and Plan No data available for this section 10/02/2024 Ambulatory Pharmacy Functional Status Combined list of recent functional and cognitive assessments recorded at Department of Defense and Veterans Affairs (VA).VA Functional [place] Measurement (FIM) Scale: 1 = Total Assistance (Subject = 0% +), 2 = Maximal Assistance (Subject = 25% +), 3 = Moderate Assistance (Subject = 50% +), 4 = Minimal Assistance (Subject = 75% +), 5 = Supervision, 6 = Modified [place] (Device), 7 = Complete [place] (Timely, Safely). Assessment Date/Time Source Assessment Type Assessment Skill Assessment Score Assessment Details No data available for this section
--- OUTSIDE RECORDS SUMMARY | 2024-10-02 17:39 | XMS_ITS ---
Author Organization [facility] Address [address] [place] [address] Phone Care Team Providers Care Nuclear Equipment Research Engineer Name Role Phone Unavailable Unavailable Unavailable Plan of Treatment No Plan of Treatment Recorded Assessments Includes: Assessments for all patient encounters No Assessments Recorded Medical Equipment - Implanted Devices Includes: Current and historical Devices No Medical Equipment Recorded Medications Administered Includes: Administered Medications in patient's chart No Administered Medications Recorded Results Includes: Results from 10/02/2023 through 10/02/2024 No Results Recorded For Specified Dates History of Present Illness History of Present Illness not supported for this document type No History of Present Illness Recorded Social History Description Last Updated Abnormal diet REGULAR 02/11/2009 Last Documented On 9 4:38PM ; [facility] Alcohol 1 NIGHT A WEEK 02/11/2009 Last Documented On 9 4:38PM ; [facility] Cigarette smoking 2 PACKS PER DAY 2008 Last Documented On 9 4:38PM ; [facility] Exercise frequency FREQUENT 02/11/2009 Last Documented On 9 4:38PM ; [facility] 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 ; [facility] 02/11/2009 Last Documented On 9 4:38PM ; [facility] Smoking Status Unknown Procedures and Surgical History Surgical History Last Updated History of appendectomy 06/1502/11/2009 Last Documented On 9 4:38PM ; [facility] Medical History Includes: Medical History in patient's chart No Medical History Recorded Family History Includes: Family History in patient's chart No Family History Recorded Review of Systems Review of Systems not supported for this document type No Review of Systems Recorded Mental Status No Mental Status Recorded Functional Status No Functional Status Recorded Physical Exam Physical Exam not supported for this document type No Physical Exam Recorded Allergies Includes: Active, inactive, and resolved Allergies No Known Allergies Clinical Notes Includes: Signed Clinical Notes starting from 09/29/2022 No Clinical Notes Recorded
--- OUTSIDE RECORDS SUMMARY | 2024-10-02 17:39 | XMS_ITS | Clinical Summary ---
Author Organization [facility] Address [address] [place] [address] Phone Care Team Providers Care Business Solutions Architect Name Role Phone Unavailable Unavailable Unavailable Reason for Visit and Chief Complaint 1 WK CK-UP Plan of Treatment No Plan of Treatment [...] Encounters Encounter Provider Location Date Check-In Time Check- Out Time Diagnosis 1 WK CK-UP BRANDIE MAYERS D.O. [facility] 8 2:34PM 11:59PM Clinical Notes Includes: Clinical Notes from this encounter No Clinical Notes Recorded
--- OUTSIDE RECORDS SUMMARY | 2024-10-02 17:39 | XMS_ITS ---
Care Plan - [facility] Created on: October 02, 2024 SHANTE BEDOYA : 1970 Sex: Male Author Organization [facility] Address [address] [place] [address] Phone Care Team Providers Care Automotive Paint Technician Name Role Phone Unavailable Unavailable Unavailable
--- OUTSIDE RECORDS SUMMARY | 2024-10-02 17:39 | XMS_ITS | Clinical Summary ---
Author Organization [facility] Address [address] [place] [address] Phone Care Team Providers Care Bleach Supervisor Name Role Phone Unavailable Unavailable Unavailable Reason for Visit and Chief Complaint NEW PATIENT VISIT Plan of Treatment No Plan of Treatment [...] Location Date Check-In Time Check-Out Time Diagnosis NEW PATIENT VISIT BRANDIE MAYERS D.O. [facility] 02/17/20 08 2:33PM 11:59PM Clinical Notes Includes: Clinical Notes from this encounter No Clinical Notes Recorded
== END 2024-09-30 10:58 | disposition home or self-care (01) ==
PROVIDERS: PCP Family Medicine; Visit Provider Family Medicine
DX: R05.9 Cough, unspecified (principal)
CPT/HCPCS: 71046

== ENCOUNTER 2024-10-24 09:05 | Outpatient (CLI) | payer MEDICARE, OTHER, SELFPAY ==
--- OUTSIDE RECORDS SUMMARY | 2024-10-24 09:11 | XMS_ITS | Clinical Summary ---
Author Organization [facility] Address [address] [place] [address] Phone Care Team Providers Care Script Reader Name Role Phone Unavailable Unavailable Unavailable Reason [...] Diagnosis NEW PATIENT VISIT BRANDIE MAYERS D.[facility]. [facility] [place] [facility] 02/17/20 08 2:33PM 11:59PM Clinical Notes Includes: Clinical Notes from this encounter No Clinical Notes Recorded
--- OUTSIDE RECORDS SUMMARY | 2024-10-24 09:11 | XMS_ITS | Clinical Summary ---
Author Organization [facility] Address [address] [place] [address] Phone Care Team Providers Care Baby Formula Mixer Name Role Phone Unavailable Unavailable Unavailable Reason [...] Time Diagnosis CHECK UP BRANDIE MAYERS D.[facility]. [facility] [place] 04/22/ 8 3:29PM 11:59PM Clinical Notes Includes: Clinical Notes from this encounter No Clinical Notes Recorded
--- OUTSIDE RECORDS SUMMARY | 2024-10-24 09:11 | XMS_ITS | Referral Summary ---
Author Organization [facility] [address] [place] [address] Address [address] [facility] [address] [place] [address] Care Team Providers Care Planning Director Name Role Phone Heri Arroyo MD Primary Care Provider Encounters Date Type Department Care Team Description 10/21/2024 Orders Only [facility] Cardiology [address] [place] [address] [place] [phone] El Mishra MD ICD (implantable cardioverter-defibrill ator) in place (Primary Dx); Ischemic cardiomyopathy 10/21/2024 7:30 AM GLOBAL MARKETING OPERATIONS MANAGER Ancillary Procedure [facility] Cardiology [address] [place] [address] [place] [phone] Ischemic cardiomyopathy; Paroxysmal ventricular tachycardia (HCC) 10/13/2024 1:30 PM GLOBAL MARKETING OPERATIONS MANAGER Office Visit [facility] [address] [place] [address] [address] [place] [address] El Mishra MD History of mitral valve repair (Primary Dx); Hx of CABG; Multiple-type hyperlipidemia; Coronary artery disease involving angoon coronary artery of angoon heart without angina pectoris; Ischemic cardiomyopathy; S/P drug eluting coronary stent placement; ICD (implantable cardioverter-defibrill ator) in place; Hyperlipidemia associated with type 2 diabetes mellitus (HCC) from Last 3 Months Allergies No known active allergies Medications aspirin 81 mg tablet take 1 tablet (81MG) by oral route every day 0 01/08/20 12 Active omega-3 fatty acids-fish oil 340-1,000 mg capsule take 1 by Oral route every day 0 08/12/20 12 Active multivitamin tabletIndicati ons:Vitamin Deficiency Prevention Take 1 tablet by mouth Active insulin lispro (HumaLOG, ADMELOG) 100 unit/mL insulin pen insulin lispro (U-100) 100 unit/mL subcutaneous pen Active insulin glargine (LANTUS, BASAGLAR, SEMGLEE) 100 unit/mL (3 mL) pen for injection Active Entresto 97-103 mg tablet TAKE 1 TABLET TWICE A DAY 180 tablet 3 03/03/20 24 Active metoprolol (LOPRESSOR) 100 mg tabletIndicati ons:Cardiomyop athy, unspecified type (HCC) TAKE 1 TABLET TWICE A DAY 180 tablet 2 04/14/20 24 Active rosuvastatin (CRESTOR) 40 mg tablet TAKE 1 TABLET DAILY 90 tablet 2 04/14/20 24 Active spironolactone (ALDACTONE) 25 mg tablet TAKE 1 TABLET DAILY 90 tablet 1 09/08/20 24 Active ticagrelor (Brilinta) 60 mg tabletIndicati ons:Coronary artery disease involving angoon coronary artery of angoon heart without angina pectoris,Hx of CABG,S/P drug eluting coronary stent placement TAKE 1 TABLET TWICE A DAY 180 tablet 1 10/02/19 25 Active Jardiance 10 mg tablet Take 1 tablet (10 mg total) by mouth daily 08/08/20 24 Active acidophilus-pe ctin, citrus 100 million cell-10 mg capsule Take by mouth Active Trelegy Ellipta 100-62.5-25 mcg inhaler 10/01/19 25 Active Trulicity 1.5 mg/0.5 mL pen injector ADMINISTER 1.5 MG UNDER THE SKIN WEEKLY 10/05/192024 Discontinued(A lternate therapy) ticagrelor (Brilinta) 60 mg tabletIndicati ons:Coronary artery disease involving angoon coronary artery of angoon heart without angina pectoris,Hx of CABG,S/P drug eluting coronary stent placement Take 1 tablet (60 mg total) by mouth 2 (two) times a day 180 tablet 1 04/14/20 24 2024 Discontinued Active Problems Problem Noted Date Diagnosed Date Tobacco use 11/07/2022 Morbid (severe) obesity due to excess calories 0 05/03/2022 Hyperlipidemia associated with type 2 diabetes m brendan 10/26/2021 Diabetes mellitus type II, non insulin dependent ([facility]) 11/02/2020 Dilated cardiomyopathy ([facility]) 09/17/2018 Former smoker 09/17/2018 Coronary artery disease invo lving angoon coronary artery of angoon heart without angina pectoris 08/20/2018 Overview (08/20/2018): Added automatically from request for surgery [id number] Hx of CABG 08/20/2018 Overview (08/20/2018): Added automatically from request for surgery [id number] ICD (implantable cardioverter-defibrillator) in place 06/21/2018 Overview (02/06/2019): [employer] Single ICD. Dx; ICM. Gen Change 02/06/2019, chronic lead 01/23/2012. [employer] remote monitoring Q3 mo, office device checks Q1 yr. Obesity (BMI 30-39.9) 06/23/2016 Overview (12/14/2016): Obesity (BMI 30-39.9) History of mitral valve repair 06/23/2016 Overview (12/14/2016): H/O mitral valve repair S/P drug eluting coronary stent placement 2012 Overview (12/14/2016): S/P ICD Ischemic cardiomyopathy 07/14/2013 Overview (12/15/2016): Cardiomyopathy, Other Primary Multiple-type hyperlipidemia 07/14/2013 Overview (12/15/2016): MIXED HYPERLIPIDEMIA Obstructive sleep apnea syndrome 07/14/2013 Overview (12/15/2016): DU (obstructive sleep apnea) Paroxysmal ventricular tachycardia 07/14/2013 Overview (12/15/2016): PAROX VENTRIC TACHYCARD Chronic systolic heart failure ([facility]) 013 Overview (12/13/2016): CHR SYSTOLIC HRT FAILURE Resolved Problems Problem Noted Date Diagnosed Date Resolved Date Pneumonia due to infectious organism 09/17/2018 10/26/2021 Non-rheumatic mitral regurgitation 09/17/2018 10/13/2024 LV dysfunction 08/20/2018 09/17/2018 Overview (08/20/2018): Added automatically from request for surgery [id number] Obesity (BMI 30.0-34.9) 06/21/201809/10 Smoker 06/23/2016 09/23/2019 Overview (12/14/2016): Smoker Supraventricular tachycardia 12/31/2015 10/13/2024 Overview (12/14/2016): Sustained SVT Postprocedural state 07/14/2013 018 Overview (12/13/2016): S/P MVR (mitral valve repair) Coronary arteriosclerosis in angoon artery 07/14/2013 09/17/2018 Overview (12/15/2016): CRNRY ATHRSCL NATVE VSSL History of coronary artery bypass surgery 07/14/2013 09/17/2018 Overview (12/15/2016): AORTOCORONARY BYPASS Hypotension 07/14/2013 10/13/2024 Overview (12/15/2016): Hypotension Mitral valve disease 01/20/2013 018 Overview (12/15/2016): MITRAL VALVE DISORDER Chronic ischemic heart disease 01/08/2012 06/21/2018 Overview (12/13/2016): CHR ISCHEMIC HRT DIS NOS Atherosclerosis of coronary artery 12/05/2011 06/21/2018 Social History Tobacco Use Types Packs/Day Years Used Date Smoking Tobacco: Former Cigarettes Q uit: 08/20/2018 Smokeless Tobacco: Never Tobacco Cessation:Counseling Given: Not Answered Alcohol Use Standard Drinks/Week Comments Yes 0 (1 standard drink = 0.6 oz pur e alcohol) occassional Sex and Gender Information Value Date Recorded Sex Assigned at Not on file Legal Sex Male 9:49 AM GLOBAL MARKETING OPERATIONS MANAGER Gender Identity Not on file Sexual Orientation Not on file Last Filed Vital Signs Vital Sign Reading Time Taken Comments Blood Pressure 120/64 10/13/2024 1:39 PM GLOBAL MARKETING OPERATIONS MANAGER Pulse 72 10/13/2024 1:39 PM GLOBAL MARKETING OPERATIONS MANAGER Temperature 36.2 C (97.1 F) 12/02/2020 1:48 PM CDT Respiratory Rate 16 09/23/2019 3:31 PM GLOBAL MARKETING OPERATIONS MANAGER Oxygen Saturation 92% 10/13/2024 1:39 PM GLOBAL MARKETING OPERATIONS MANAGER Inhaled Oxygen Concentration - - Weight 119.3 kg (263 lb) 10/13/2024 1:39 PM GLOBAL MARKETING OPERATIONS MANAGER Height 180.3 cm (5' 11 ) 10/13/2024 1:39 PM GLOBAL MARKETING OPERATIONS MANAGER Body Mass Index 36.68 10/13/2024 1:39 PM GLOBAL MARKETING OPERATIONS MANAGER Plan of Treatment Not on file Medical Devices Implanted Type Area Mechanic General Operational Test Device Identifier Shelf Expiration Date Model / Serial / Lot Icd ICD Left: Chest Medtr[employer] X [id number] Resolute Davis 4mm 2.1-2.7fr 18mm 140cm Rapid Exchange Radiopaque - [id number] Implanted:Qty: 1 on 08/29/2018 by Antonio Mejia MD at [facility] Stent Med[employer] X 05/08/2020 [id number] / / [id number] [employer] X [id number] Resolute Nitish 4.5mm 2.1-2.7fr 18mm 140cm Rapid Exchange - [id number] Implanted:Qty: 1 on 08/29/2018 by Antonio Mejia MD at [facility] Stent [employer] X 02/19/2020 [id number] / / [id number] [employer] X [id number] Resolute Davis 5mm 2.1-2.7fr 18mm 140cm Rapid Exchange Radiopaque - [id number] Implanted:Qty: 1 on 08/29/2018 by Antonio Mejia MD at [facility] Stent [employer] X 07/11/2020 [id number] / / [id number] Daig Katie[employer] [id number] Angio-Seal Vip Bondek-Plus 6fr .035in 70cm Hemostatic Latex Free - [id number] Implanted:Qty: 1 on 08/29/2018 by Antonio Mejia MD at [facility] 06/09/2019 [id number] / / [id number] [facility] [id number] Angio-Seal Vip Bondek-Plus 8fr .038in 70cm Hemostatic Latex Free - [id number] Implanted:Qty: 1 on 08/29/2018 by Antonio Mejia MD at [facility] 11/07/2018 [id number] / / [id number] Procedures Procedure Name Priority Date/Time Associated Diagnosis Comments POCT LIPID PANEL Routine 03/03/2024 10:4 2 AM CDT Hyperlipidemia associated with type 2 diabetes mellitus (HCC) BASIC METABOLIC PANEL Routine 02/27/2023 Chronic systolic heart failure (CMS/HCC) (HCC) Ischemic cardiomyopathy from Last 3 Months or Most Recently Relevant to Health Maintenance Results * POCT lipid panel (03/03/2024 10:42 AM CDT) Pathologist [facility] Cholesterol, POC 133 mg/dL Comment:GLU = 157 HDL, POC 26 mg/dL Triglycerides, POC 368 mg/dL LDL Cholesterol POC 33 mg/dL Chol/HDL Ratio, POC 1.3 Non-HDL Cholesterol, POC 107 mg/dL Cholesterol Total, POC 133 mg/dL Capillary blood 03/03/2024 1 0:42 AM CDT us El Mishra MD POINT OF CARE TEST O RDERABLES Final Result * (ABNORMAL) Basic metabolic panel (02/27/2023) SCRIBED Sodium 138 137 - 145 mmol/L EXTERNAL LAB SCRIBED Potassium 3.9 3.4 - 5.0 mmol/L EXTERNAL LAB SCRIBED Chloride 102 98 - 107 mmol/L EXTERNAL LAB SCRIBED Carbon Dioxide 29 22 - 30 mmol/L EXTERNAL LAB SCRIBED Anion Gap 7(A) 8 - 16 mmol/L EXTERNAL LAB SCRIBED Urea Nitrogen (BUN) 16 9 - 20 mg/dl EXTERNAL LAB SCRIBED Creatinine 0.90 0.7 - 1.3 mg/dl EXTERNAL LAB SCRIBED Glucose 120(A) 65 - 110 mg/dl EXTERNAL LAB SCRIBED Calcium 9.1 8.4 - 10.2 mg/dl EXTERNAL LAB SCRIBED eGFR in - - - - EXTERNAL LAB SCRIBED eGFR in NonAfrican Uruguayan >60 - - >60 EXTERNAL LAB Blood 02/27/2023 us Asha Lowery MD LAB BLOOD ORDERABLES Final Result EXTERNAL LAB from Last 3 Months or Most Recently Relevant to Health Maintenance Insurance [facility] MEDICARE [employer] Care Teams Planning Director Relationship Specialty Start Date End Date Heri Arroyo MD [address] [facility] [address] [place] [address] PCP - General Family Medicine 10/13/24
--- OUTSIDE RECORDS SUMMARY | 2024-10-24 09:11 | XMS_ITS | Clinical Summary ---
Author Organization [facility] [address] Address [address] [place] [address] Care Team Providers Care Home School Coordinator Name Role Phone Heri Arroyo MD Primary Care Provider Allergies No known active allergies Medications aspirin [...] 60 mg tabletIndicati ons:Coronary artery disease involving king salmon coronary artery of king salmon heart without angina pectoris,Hx of CABG,S/P drug eluting coronary stent placement TAKE 1 TABLET TWICE A DAY 180 tablet 1 01/23/20 25 Active Jardiance 10 mg tablet Take [...] 60 mg tabletIndicati ons:Coronary artery disease involving king salmon coronary artery of king salmon heart without angina pectoris,Hx of CABG,S/P drug eluting coronary stent placement Take 1 tablet (60 mg total) by mouth 2 (two) times a day 180 tablet 1 04/14/20 24 2024 Discontinued Active Problems Problem Noted Date Diagnosed Date Tobacco use 11/07/2022 Morbid (severe) obesity due to excess calories 0 05/03/2022 Hyperlipidemia associated with type 2 diabetes m ellitus 10/26/2021 Diabetes mellitus type II, non insulin dependent (CMS/HCC) 11/02/2020 Dilated cardiomyopathy (CMS/HCC) 09/17/2018 Former smoker 09/17/2018 Coronary artery disease invo lving king salmon coronary artery of king salmon heart without angina pectoris 08/20/2018 Overview (08/20/2018): Added automatically from request for surgery [id number] Hx of CABG 08/20/2018 Overview (08/20/2018): Added automatically from request for surgery [id number] ICD (implantable cardioverter-defibrillator) in place 06/21/2018 Overview (02/06/2019): [employer] Single ICD. Dx; ICM. Gen Change 02/06/2019, chronic lead 01/23/2012. [employer] remote monitoring Q3 mo, office device checks [...] PAROX VENTRIC TACHYCARD Chronic systolic heart failure (CMS/HCC) 013 Overview (12/13/2016): CHR SYSTOLIC HRT FAILURE Resolved Problems Problem Noted Date Diagnosed Date Resolved Date Pneumonia due to infectious organism 09/17/2018 10/26/2021 Non-rheumatic mitral regurgitation 09/17/2018 10/13/2024 LV dysfunction 08/20/2018 09/17/2018 Overview (08/20/2018): Added automatically from request for surgery [id number] Obesity (BMI 30.0-34.9) 06/21/201809/10 Smoker 06/23/2016 09/23/2019 Overview (12/14/2016): Smoker Supraventricular tachycardia 12/31/2015 10/13/2024 Overview (12/14/2016): Sustained SVT Postprocedural state 07/14/2013 018 Overview (12/13/2016): S/P MVR (mitral valve repair) Coronary arteriosclerosis in king salmon artery 07/14/2013 09/17/2018 Overview (12/15/2016): CRNRKp ATHRSCL DARIELA VSSL History of coronary artery bypass surgery 07/14/2013 09/17/2018 Overview (12/15/2016): AORTOCORONARY BYPASS Hypotension 07/14/2013 10/13/2024 Overview (12/15/2016): Hypotension Mitral valve disease 01/20/2013 018 Overview (12/15/2016): MITRAL VALVE DISORDER Chronic ischemic heart disease 01/08/2012 06/21/2018 Overview (12/13/2016): CHR ISCHEMIC HRT DIS NOS Atherosclerosis of coronary artery 12/05/2011 06/21/2018 Encounters Date Type Department Care Team Description 10/21/2024 7:30 AM PEST CONTROL SERVICE SALES AGENT Ancillary Procedure [facility] Cardiology [address] [place] [address] [place] [phone] Ischemic cardiomyopathy; Paroxysmal ventricular tachycardia (HCC) 10/21/2024 Orders Only [facility] Cardiology [address] [place] [address] [place] [phone] El Mishra MD ICD (implantable cardioverter-defibrill ator) in place (Primary Dx); Ischemic cardiomyopathy 10/13/2024 1:30 PM PEST CONTROL SERVICE SALES AGENT Office Visit [facility] Cardiology [address] [facility] [address] [place] [phone] El Mishra MD History of mitral valve repair (Primary Dx); Hx of CABG; Multiple-type hyperlipidemia; Coronary artery disease involving king salmon coronary artery of king salmon heart without angina pectoris; Ischemic cardiomyopathy; S/P drug eluting coronary stent placement; ICD (implantable cardioverter-defibrill ator) in place; Hyperlipidemia associated with type 2 diabetes mellitus (HCC) from Last 3 Months Surgical History Surgery Date Site/Laterality Comments APPENDECTOMY Appendectomy CORONARY ARTERY BYPASS GRAFT MITRAL VALVE REPAIR CARDIAC DEFIBRILLATOR PLACEMENT CARDIAC VALVE REPLACEMENT 09/10/2009 - 10/10/2009 Medical History Medical History Date Comments Valvular disease 2011 Coronary artery disease 2011 CABG Hyperlipidemia Ischemic cardiomyopathy CHF (congestive heart failure) (CMS/HCC) (HCC) Mitral regurgitation Sleep apnea Diabetes mellitus (HCC) SEP 2020 Heart disease SEP 2009 Family History Medical History Relation Name Comments Diabetes Brother CARLYN TEIXEIRA JR Diabetes Father Carlyn Teixeira Other Father Carlyn Teixeira healthy; COPD Mother LAURITA TEIXEIRA COPD; Diabetes type II Mother LAURITA TEIXEIRA Diabetes Ty pe II; Relation Name Status Comments Brother CARLYN TEIXEIRA JR Alive Father Carlyn Teixeira Alive Mother LAURITA TEIXEIRA Alive Social History Tobacco Use Types Packs/Day Years Used Date Smoking Tobacco: Former Cigarettes Q uit: 08/20/2018 Smokeless Tobacco: Never Tobacco Cessation:Counseling Given: Not Answered Alcohol Use Standard Drinks/Week Comments Yes 0 (1 standard drink = 0.6 oz pur e alcohol) occassional Sex and Gender Information Value Date Recorded Sex Assigned at Not on file Legal Sex Male 9:49 AM PEST CONTROL SERVICE SALES AGENT Gender Identity Not on file Sexual Orientation Not on file Obstetrics History Last Filed Vital Signs Vital Sign Reading Time Taken Comments Blood Pressure 120/64 10/13/2024 1:39 PM PEST CONTROL SERVICE SALES AGENT Pulse 72 10/13/2024 1:39 PM PEST CONTROL SERVICE SALES AGENT Temperature 36.2 C (97.1 F) 12/02/2020 1:48 PM CDT Respiratory Rate 16 09/23/2019 3:31 PM PEST CONTROL SERVICE SALES AGENT Oxygen Saturation 92% 10/13/2024 1:39 PM PEST CONTROL SERVICE SALES AGENT Inhaled Oxygen Concentration - - Weight 119.3 kg (263 lb) 10/13/2024 1:39 PM PEST CONTROL SERVICE SALES AGENT Height 180.3 cm (5' 11 ) 10/13/2024 1:39 PM PEST CONTROL SERVICE SALES AGENT Body Mass Index 36.68 10/13/2024 1:39 PM PEST CONTROL SERVICE SALES AGENT Plan of Treatment Health Maintenance Due Date Last Done Comments Albumin Creatinine Ratio, Urine 1969 Colon Cancer Screening-Colonoscopy 1969 Depression Screening 1969 Hemoglobin A1C 1969 Hepatitis C Screening 1969 Prostate Cancer Screening-PSA 1969 Dilated Eye Exam 1969 Foot Exam 1969 Pneumococcal vaccine <65 (1 of 2 - PCV) 1975 DTaP/Tdap/Td Vaccine (1 - Tdap) 1980 Hepatitis B Screening 1987 Regular Well Visit/Exam 18-64 1987 Zoster Vaccine (1 of 2) 2019 eGFR 02/28/2024 02/27/2023, 08/10, 07/31/2018 Influenza Vaccine (#1) 2024 Lipid Panel 03/03/2025 03/03/2024, 10/12, 10/19/2021, Additional history exists Medical Devices Implanted Type Area Learning Facilitator Device Identifier Shelf Expiration Date Model / Serial / Lot Icd ICD Left: Chest Medtronic [employer] X [id number] Resolute Nitish 4mm 2.1-2.7fr 18mm 140cm Rapid Exchange Radiopaque - [id number] Implanted:Qty: 1 on 08/29/2018 by Antonio Mejia MD at [facility] Stent [employer] X 05/08/2020 [id number] / / [id number] [employer] X [id number] Resolute Nitish 4.5mm 2.1-2.7fr 18mm 140cm Rapid Exchange - [id number] Implanted:Qty: 1 on 08/29/2018 by Antonio Mejia MD at [facility] Stent [employer] X 02/19/2020 [id number] / / [id number] [employer] X [id number] Resolute Nitish 5mm 2.1-2.7fr 18mm 140cm Rapid Exchange Radiopaque - [id number] Implanted:Qty: 1 on 08/29/2018 by Antonio Mejia MD at [facility] Stent [employer] X 07/11/2020 [id number] / / [id number] Daig [employer] [id number] Angio-Seal Vip Bondek-Plus 6fr .035in 70cm Hemostatic Latex Free - [id number] Implanted:Qty: 1 on 08/29/2018 by Antonio Mejia MD at [facility] [employer] 06/09/2019 [id number] / / [id number] Daig [employer] [id number] Angio-Seal Vip Bondek-Plus 8fr .038in 70cm Hemostatic Latex Free - [id number] Implanted:Qty: 1 on 08/29/2018 by Antonio Mejia MD at [facility] [employer] 11/07/2018 [id number] / / [id number] Procedures Procedure Name Priority Date/Time Associated Diagnosis Comments POCT LIPID PANEL Routine 03/03/2024 10:4 2 AM CDT Hyperlipidemia associated with type 2 diabetes mellitus (HCC) BASIC METABOLIC PANEL Routine 02/27/2023 Chronic systolic heart failure (CMS/HCC) (HCC) Ischemic cardiomyopathy from Last 3 Months or Most Recently Relevant to Health Maintenance Results * POCT lipid panel (03/03/2024 10:42 AM CDT) Cholesterol, POC 133 mg/dL Comment:GLU = 157 HDL, POC 26 mg/dL Triglycerides, POC 368 mg/dL LDL Cholesterol POC 33 mg/dL Chol/HDL Ratio, POC 1.3 Non-HDL Cholesterol, POC 107 mg/dL Cholesterol Total, POC 133 mg/dL Capillary blood 03/03/2024 1 0:42 AM CDT El Mishra MD POINT OF CARE TEST [...] - EXTERNAL LAB SCRIBED eGFR in NonAfrican Djiboutian >60 - - >60 EXTERNAL LAB Blood 02/27/2023 Asha Lowery MD LAB BLOOD ORDERABLES Final Result EXTERNAL LAB from Last 3 Months or Most Recently Relevant to Health Maintenance Insurance [facility] [place] [address] [facility] Care Teams Home School Coordinator Relationship Specialty Start Date End Date Heri Arroyo MD [address] [facility] [address] [place] [address] PCP - General Family Medicine 10/13/24
--- OUTSIDE RECORDS SUMMARY | 2024-10-24 09:12 | XMS_ITS ---
Author Organization [facility] Address [address] [place] [address] Phone Care Team Providers Care Supervisor Production Name Role Phone Unavailable Unavailable Unavailable Plan of Treatment No Plan of Treatment Recorded Assessments Includes: Assessments for all patient encounters No Assessments Recorded Medical Equipment - Implanted Devices Includes: Current and historical Devices No Medical Equipment Recorded Medications Administered Includes: Administered Medications in patient's chart No Administered Medications Recorded Results Includes: Results from 10/24/2023 through 10/24/2024 No Results Recorded For Specified Dates History of Present Illness History of Present Illness not supported for this document type No History of Present Illness Recorded Social History Description Last Updated Abnormal diet REGULAR 02/11/2009 Last Documented On 9 4:38PM ; [facility] Alcohol 1 NIGHT A WEEK 02/11/2009 Last Documented On 9 4:38PM ; [facility] Cigarette smoking 2 PACKS PER DAY 2008 Last Documented On 9 4:38PM ; [facility] Exercise frequency FREQUENT 02/11/2009 Last Documented On 9 4:38PM ; [facility] 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
--- OUTSIDE RECORDS SUMMARY | 2024-10-24 09:12 | XMS_ITS | Encounter Summary ---
Author Organization [facility] Address [address] [facility] [address] [place] [address] Care Team Providers Care Photocopying Equipment Repairer Name Role Phone Alena Castro MD Primary Care Provider + Alena Castro MD Primary Care Provider + Adan Guzman MD Primary Care Provider [phone] Mariajose Becerra NP Primary Care Provider [phone] Radha Hall MD Primary Care Provider Heri Arroyo MD Primary Care Provider Encounter Details Date Type Department Care Team (Late st Contact Info) Description 10/24/2016 Orders Only [facility] Provider, MD Lillie [address] [place] [address] Social History Tobacco Use Types Packs/Day Years Used Date Smoking Tobacco: Light Smoker Cigarettes Last attempted t o quit: 09/10/2011 Comments:Smoking History Pac ks/day: 5 Cigarettes Alcohol Use Standard Drinks/Week Comments Yes 0 (1 standard drink = 0.6 oz pur e alcohol) Sex and Gender Information Value Date Recorded Sex Assigned at Not on file Legal Sex Male 9:49 AM DIMENSION QUARRY SUPERVISOR Gender Identity Not on file Sexual Orientation Not on file documented as of this encounter Plan of Treatment Not on file documented as of this encounter Procedures Procedure Name Priority Date/Time Associated Diagnosis Comments CARDIOLOGY REPORT 10/24/2016 documented in this encounter Results * CARDIOLOGY REPORT (10/24/2016) Anatomical Region Laterality Modality Other Narrative 10/24/2016 Ordered by an unspecified provider. us Historical Provider [facility] ISAIAH CARVAJAL Final Result documented in this encounter Visit Diagnoses Not on filedocumented in this encounter Care Teams Photocopying Equipment Repairer Relationship Specialty Start Date End Date Alena Castro MD [address] [place] [address] PCP - General 12/08/16 03/04/18 Alena Castro MD [address] [place] [address] PCP - General 03/04/12 12/07/16 Adan Guzman MD [address] [facility] [address] [place] [address] PCP - General Internal Medicine 03/05/18 11/01/20 Mariajose Becerra NP [address] [facility] 1 [place] [address] PCP - General Nurse Practitioner 11/02/20 10/25/21 Radha Hall MD [address] [place] [address] PCP - General Family Medicine 10/26/21 10/12/24 Heri Arroyo MD [address] [place] [address] PCP - General Family Medicine 10/13/24 documented as of this encounter
--- OUTSIDE RECORDS SUMMARY | 2024-10-24 09:12 | XMS_ITS | Clinical Summary ---
Author Organization [facility] Address [address] [place] [address] Phone Care Team Providers Care Bucket Hooker Name Role Phone Unavailable Unavailable Unavailable Reason [...] Diagnosis 1 WK CK-UP BRANDIE MAYERS D.[facility]. [facility] 8 2:34PM 11:59PM Clinical Notes Includes: Clinical Notes from this encounter No Clinical Notes Recorded
--- OUTSIDE RECORDS SUMMARY | 2024-10-24 09:12 | XMS_ITS | Clinical Summary ---
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 [facility] 02/12/20 09 4:35PM 11:59PM Clinical Notes Includes: Clinical Notes from this encounter No Clinical Notes Recorded
--- OUTSIDE RECORDS SUMMARY | 2024-10-24 09:12 | XMS_ITS ---
Care Plan - [facility] Created on: October 24, 2024 SHANTE BEDOYA : 1970 Sex: Male Author Organization [facility] Address [address] [place] [address] Phone Care Team Providers Care Special Education Assistant Name Role Phone Unavailable Unavailable Unavailable
--- OUTSIDE RECORDS SUMMARY | 2024-10-24 09:12 | XMS_ITS | Encounter Summary ---
Author Organization [facility] Address [address] [facility] [address] [place] [address] Care Team Providers Care Senior Product Consultant Name Role Phone Alena Castro MD Primary Care Provider + Adan Guzman MD Primary Care Provider [phone] Mariajose Becerra NP Primary Care Provider [phone] Radha Hall MD Primary Care Provider Heri Arroyo MD Primary Care Provider Encounter Details Date Type Department Care Team (Late st Contact Info) Description 01/23/2017 Orders Only [facility] ProviderLillie MD [address] [place] [address] Social History Tobacco Use Types Packs/Day Years Used Date Smoking Tobacco: Light Smoker Cigarettes Last attempted t o quit: 09/10/2011 Comments:Smoking History Pac ks/day: 5 Cigarettes Alcohol Use Standard Drinks/Week Comments Yes 0 (1 standard drink = 0.6 oz pur e alcohol) Sex and Gender Information Value Date Recorded Sex Assigned at Not on file Legal Sex Male 9:49 AM CASE WORKER Gender Identity Not on file Sexual Orientation Not on file documented as of this encounter Plan of Treatment Not on file documented as of this encounter Procedures Procedure Name Priority Date/Time Associated Diagnosis Comments CARDIOLOGY REPORT 01/23/2017 documented in this encounter Results * CARDIOLOGY REPORT (01/23/2017) Anatomical Region Laterality Modality Other Narrative 01/23/2017 Ordered by an unspecified provider. us Historical Provider [facility] ISAIAH CARVAJAL Final Result documented in this encounter Visit Diagnoses Not on filedocumented in this encounter Care Teams Senior Product Consultant Relationship Specialty Start Date End Date Alena Castro MD [address] [facility] [place] [address] PCP - General 12/08/16 03/04/18 Adan Guzman MD [address] [place] [address] PCP - General Internal Medicine 03/05/18 11/01/20 Mariajose Becerra NP [address] [place] [address] PCP - General Nurse Practitioner 11/02/20 10/25/21 Radha Hall MD [address] [place] [address] PCP - General Family Medicine 10/26/21 10/12/24 Heri Arroyo MD [address] [place] [address] PCP - General Family Medicine 10/13/24 documented as of this encounter
--- OUTSIDE RECORDS SUMMARY | 2024-10-24 09:12 | XMS_ITS | Continuity of Care Document ---
Author Name [facility] Organization [facility] Care Team Providers Care Weld Engineer Name Role Phone [facility] Unavailable Unavailable Problems Combined list of problems from Department of Defense and Veterans Affairs facilities. It does not include entries that were removed or entered in error. Problem Status Onset Date Problem Type Date of Resolution Comments Source visit for: services physical Inactive Condition DoD visit for: issue medical certificate Inactive Condition PRT Waiver accomplished DoD abdominal pain Inactive Condition [facility] visit for: administrative purpose Inactive Condition [facility] visit for: postsurgical exam Inactive Condition [facility] sore throat acute Inactive Condition NO N-SPECIFIC SORETHROAT. PROBABLE RELATED TO ALLERGIES VS. GERD. NO SIGNS OF INFECTION. D/C TOBACCO. PUSH ORAL FLUIDS. DoD nicotine dependence Active Condition [facility] compression arthralgia - hand Active Condition [facility] limb pain Inactive Condition [facility] nonspecific abnormal findings Active Condition [facility] Patient Education Active Condition [facility] visit for: occupational health / fitness exam Inactive Condition [facility] visit for: ears, nose, and throat exam Inactive Condition DoD muscle spasm Active Condition DoD nonspecific abnormal findings Active Condition lump in ri ght side of chest [id number] to GI for f/u. F/u with PCM after GI evaluation DoD pharyngitis Inactive Condition [facility] assess patient condition work-related occupational disease Inactive Condition [facility] Medications Combined list of outpatient medications from Department of Defense and Veterans Affairs facilities.Medications provided include 1) outpatient medications from the last 15 months, and 2) patient-reported medications. Medication Details Route Status Patient Instructions Prescription Expires Prescription Number Last Dispense Date Ordering Provider Order Date Order Qty Source BRILINTA (ticagrelor ), 60 MG, TABLET, ORAL, ASTRAZENECA , 60 ea. BOTTLE Active [id number] 4 2023 180 Pharmac y Data Transac tion Service Facilit y ENTRESTO (sacubitril /valsartan) , 97MG-103MG, TABLET, ORAL, NOVARTIS, 60 ea. BOTTLE Active [id number] 4 2023 180 Pharmac y Data Transac tion Service Facilit y ENTRESTO (sacubitril /valsartan) , 97MG-103MG, TABLET, ORAL, NOVARTIS, 60 ea. BOTTLE Active [id number] 4 2023 180 Pharmac y Data Transac tion Service Facilit y FREESTYLE ADAMA 3 SENSOR (flash glucose sensor), KIT, MISCELL, ORR DIABETES, 1 ea. KIT Active [id number] 4 2023 6 Pharmac y Data Transac tion Service Facilit y IMIQUIMOD (IMIQUIMOD) , 5 %, CREAM PACK, TOPICAL, [employer] 24 ea. PACKET Active [id number] 4 2023 12 Pharmac y Data Transac tion Service Facilit y INSULIN LISPRO KWIKPEN U-100 (insulin lispro), 100/ML, INSULN PEN, SUBCUT, MARIA ISABEL [employer] 3 ml SYRINGE Active [id number] 2023 30 Pharmac y Data Transac tion Service Facilit y INSULIN LISPRO KWIKPEN U-100 (insulin lispro), 100/ML, INSULN PEN, SUBCUT, MARIA [employer]AB[employer] 3 ml SYRINGE Active [id number] 2023 30 Pharmac y Data Transac tion Service Facilit y JARDIANCE (EMPAGLIFLO ZIN), 10 MG, TABLET, ORAL, BOEHRINGER ING., 30 ea. BOTTLE Cancele d [id number] : 2023 0 Pharmac y Data Transac tion Service Facilit y JARDIANCE (EMPAGLIFLO ZIN), 10 MG, TABLET, ORAL, BOEHRINGER ING., 30 ea. BOTTLE Cancele d [id number] : 2023 0 Pharmac y Data Transac tion Service Facilit y JARDIANCE (EMPAGLIFLO ZIN), 10 MG, TABLET, ORAL, BOEHRINGER ING., 30 ea. BOTTLE Active [id number] 2023 30 Pharmac y Data Transac tion Service Facilit y JARDIANCE (EMPAGLIFLO ZIN), 10 MG, TABLET, ORAL, BOEHRINGER ING., 90 ea. BOTTLE Active [id number] 4 2023 90 Pharmac y Data Transac tion Service Facilit y LANTUS SOLOSTAR (INSULIN GLARGINE,[facility] ), 100/ML (3), INSULN PEN, SUB-Q, SANOFI-AVEN TIS, 3 ml SYRINGE Active [id number] 4 2023 30 Pharmac y Data Transac tion Service Facilit y LANTUS SOLOSTAR (INSULIN GLARGINE,[facility] ), 100/ML (3), INSULN PEN, SUB-Q, SANOFI-AVEN TIS, 3 ml SYRINGE Active [id number] 4 2023 15 Pharmac y Data Transac tion Service Facilit y LANTUS SOLOSTAR (INSULIN GLARGINE,[facility].ANLOG ), 100/ML (3), INSULN PEN, SUB-Q, SANOFI-AVEN TIS, 3 ml SYRINGE Active [id number] 2023 15 Pharmac y Data Transac tion Service Facilit y METOPROLOL TARTRATE (metoprolol tartrate), 100 MG, TABLET, ORAL, [employer] 1000 ea. BOTTLE Active [id number] 4 2023 180 Pharmac y Data Transac tion Service Facilit y RUSS 2ND GEN PEN NEEDLE (pen needle, diabetic), 32GX 5/32 , DIS NEEDLE, MISCELL, BD DIABETES/EM B, 100 ea. BOX Active [id number] 4 2023 300 Pharmac y Data Transac tion Service Facilit y RUSS 2ND GEN PEN NEEDLE (pen needle, diabetic), 32GX 5/32 , DIS NEEDLE, MISCELL, BD DIABETES/EM B, 100 ea. BOX Cancele d [id number] : 2022 0 Pharmac y Data Transac tion Service Facilit y SPIRONOLACT ONE (spironolac tone), 25 MG, TABLET, ORAL, SOFIA RANCH ME, 100 ea. BOTTLE Active [id number] 2023 90 Pharmac y Data Transac tion Service Facilit y SPIRONOLACT ONE (spironolac tone), 25 MG, TABLET, ORAL, SOFIA RANCH ME, 100 ea. BOTTLE Active [id number] 4 2023 90 Pharmac y Data Transac tion Service Facilit y SPIRONOLACT ONE (SPIRONOLAC TONE), 25MG, TABLET, ORAL, [employer], 1000 ea. BOTTLE Active [id number] 3 2022 90 Pharmac y Data Transac tion Service Facilit y Allergies, Adverse Reactions, Alerts Combined list of allergies from Department of Defense and Veterans Affairs facilities. It does not include entries that were removed or entered in error. Substance Category Reaction Severity Reaction type Status Date Reported Comments Source No Known Allergies Drug allergy (disorder) active 06/05/2006 [facility] s [place] Immunizations Combined list of available immunizations from the Department of Defense and Veterans Affairs facilities. Immunization Series Date Given Administered By Site Reaction Lot Number CVX Code Drug Industrial Automation Engineer Status Comments Source influenza virus vaccine,split 2004 [id number] Unknown complet ed influenza virus vaccine,s [...] oral 10/30/86 Given Ambulat ory Pharmac y Encounters Combined list of: 1) Encounters from Department of Veterans Affairs facilities going backup to the last 18 months, not all VA inpatient encounters are included; 2) Encounters from the Department of Defense facilities going backup to 280 months. Location Location Details Encounter Type Encounter Number Reason For Visit Attending Provider ADM Date DC Date Status Disposition Source [facility] [place] OUTPATIENT [id number] HORACE Cali 08/23 Released w/o Limitations [facility] , [place] [facility] OUTPATIENT [id number] SORE THROAT FULWADHVA, OZ P 09/29 Released w/o Limitations [facility] [place] [facility] OUTPATIENT [id number] F/U LUMP ON CHEST FULWADHVA, OZ P 10/05 Released w/o Limitations [facility] [place] [facility] OUTPATIENT [id number] upper back spasms, denies trauma JEREMIAH WORRELL 11/28 Sick at Home/Quarter s [facility] , [place]) [place] OUTPATIENT [id number] hearing conserv ation NA JACKSON 04/11 Released w/o Limitations [place], [place]([facility]) [place]) OUTPATIENT [id number] LUMP IN CHEST SRAVAN GONSALES 04/12 Released w/o Limitations [facility] [place]) [facility] OUTPATIENT [id number] F/U XRAY SRAVAN GONSALES 04/13 Released w/o Limitations [place], [place]([facility]) [facility] OUTPATIENT [id number] SORETHR MERARY HANSEN 05/02 Released w/o Limitations [place]) [facility] OUTPATIENT [id number] ACUTE ABDOMIN AL PAIN SRAVAN GONSALES A 05/10 Released with Work/Duty Limitations [place]) [place]) OUTPATIENT [id number] f/u er SRAVAN GONSALES 05/15 Sick at Home/Quarter s [place]) [place]) OUTPATIENT [id number] PRT SCREENI JEREMIAH DAVENPORT 06/05 Released with Work/Duty Limitations [place]) [place]) OUTPATIENT [id number] retirem ent MAUDE IVEY 06/12 Released w/o Limitations [place]([facility]) Procedures Combined list of: 1) Procedures from Department of Veterans Affairs facilities [facility], not all VA non-surgical procedures are included; 2) All procedures from the Department of Defense facilities. Procedure Procedure Type Code Date Perfomer Comments Sourc e No data available for this section Ambulato ry Pharmacy PURE TONE AUDIOMETRY (THRESHOLD); AIR ONLY 6 DoD COMPREHENSIVE AUDIOMETRY THRESHOLD EVALUATION AND SPEECH RECOGNITION (29224 AND 83843 COMBINED) 5 DoD PURE TONE AUDIOMETRY (THRESHOLD); AIR ONLY 4 [facility] COMPREHENSIVE AUDIOMETRY THRESHOLD EVALUATION AND SPEECH RECOGNITION (83700 AND 86214 COMBINED) 4 [facility] COMPREHENSIVE AUDIOMETRY THRESHOLD EVALUATION AND SPEECH RECOGNITION (03799 AND 91027 COMBINED) 4 DoD SCREENING TEST OF VISUAL ACUITY, QUANTITATIVE, BILATERAL 4 [facility] COMPREHENSIVE AUDIOMETRY THRESHOLD EVALUATION AND SPEECH RECOGNITION (16394 AND 04500 COMBINED) 3 DoD FITTING OF SPECTACLES, EXCEPT FOR APHAKIA; MONOFOCAL 2 DoD COMPREHENSIVE AUDIOMETRY THRESHOLD EVALUATION AND SPEECH RECOGNITION (81816 AND 00094 COMBINED) 2 DoD UNLISTED DIAGNOSTIC RADIOGRAPHIC PROCEDURE [...] OUTPATIENT FACILITY, APPROXIMATELY 75 TO 80 MINUTES [id number] WITH THE PATIENT 0 [facility] Physician Supervised Services Provision Of Educational Supplies Physician Supervised Services Provision Of Educational Supplies [id number] SRAVAN GONSALES [facility] Threshold Audiogram (Pure Tone) Threshold Audiogram (Pure Tone) [id number] NA DOS SANTOS [facility] Social History Combined list of available smoking, [...] Plan No data available for this section 10/24/2024 Ambulatory Pharmacy Functional Status Combined list of recent functional and cognitive assessments recorded at Department of Defense and Veterans Affairs (VA).VA Functional [place] Measurement (FIM) Scale: 1 = Total Assistance (Subject = 0% +), 2 = Maximal Assistance (Subject = 25% +), 3 = Moderate Assistance (Subject = 50% +), 4 = Minimal Assistance (Subject = 75% +), 5 = Supervision, 6 = Modified [place] (Device), 7 = Complete [place] (Timely, Safely). Assessment Date/Time Source Assessment Type Assessment Skill Assessment Score Assessment Details No data available for this section
== END 2024-10-24 09:06 | disposition home or self-care (01) ==
LOC: ANHAUDIO 09:06
PROVIDERS: PCP Family Medicine; Visit Provider Family Medicine
DX: H90.3 Sensorineural hearing loss, bilateral (principal); H93.13 Tinnitus, bilateral; Z96.22 Myringotomy tube(s) status
CPT/HCPCS: 92557; 92567

== ENCOUNTER 2025-01-06 07:47 | Outpatient (CLI) | payer MEDICARE, OTHER, SELFPAY ==
--- OUTSIDE RECORDS SUMMARY | 2025-01-06 07:50 | XMS_ITS | Referral Summary ---
Author Organization [place] [address] Address [address] [facility] [address] [place] [address] Care Team Providers Care Diamond Selector Name Role Phone Heri Arroyo MD Primary Care Provider Encounters Date Type Department Care Team Description 10/21/2024 Orders Only [facility] Cardiology [address] [place] [address] [place] [phone] El Mishra MD ICD (implantable cardioverter-defibrill ator) in place (Primary Dx); Ischemic cardiomyopathy 10/21/2024 7:30 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 Ancillary Procedure [facility] Cardiology [address] [place] [address] [place] [phone] ICD (implantable cardioverter-defibrill ator) in place (Primary Dx); Ischemic cardiomyopathy; Paroxysmal ventricular tachycardia (HCC) 10/13/2024 1:30 PM LINE INSTALLER Office Visit [place] [address] [address] [place] [address] El Mishra MD History of mitral valve repair (Primary Dx); Hx of CABG; Multiple-type hyperlipidemia; Coronary artery disease involving [place] coronary artery of [place] heart without angina pectoris; Ischemic cardiomyopathy; S/P [...] DAY 180 tablet 3 03/03/20 24 Active rosuvastatin (CRESTOR) 40 mg tablet TAKE 1 TABLET DAILY 90 tablet 2 04/14/20 24 Active spironolactone (ALDACTONE) 25 mg tablet TAKE 1 TABLET DAILY 90 tablet 1 09/08/20 24 Active ticagrelor (Brilinta) 60 mg tabletIndicati ons:Coronary artery disease involving [place] coronary artery of [place] heart without angina pectoris,Hx of CABG,S/P drug eluting coronary stent placement TAKE 1 TABLET TWICE A DAY 180 tablet 1 10/02/19 25 Active Jardiance 10 mg tablet Take 1 tablet (10 mg total) by mouth daily 08/08/20 24 Active acidophilus-pe ctin, citrus 100 million cell-10 mg capsule Take by mouth Active Trelegy Ellipta 100-62.5-25 mcg inhaler 10/01/19 25 Active metoprolol (LOPRESSOR) 100 mg tabletIndicati ons:Cardiomyop athy, unspecified type (HCC) TAKE 1 TABLET TWICE A DAY 180 tablet 3 12/26/19 25 Active metoprolol (LOPRESSOR) 100 mg tabletIndicati ons:Cardiomyop athy, unspecified type (HCC) TAKE 1 TABLET TWICE A DAY 180 tablet 2 04/14/20 24 025 Discontinued Active Problems Problem Noted Date Diagnosed Date Tobacco use 11/07/2022 Morbid (severe) obesity due to excess calories 0 05/03/2022 Hyperlipidemia associated with type 2 diabetes m brendan 10/26/2021 Diabetes mellitus type II, non insulin dependent 11/02/2020 Dilated cardiomyopathy 09/17/2018 Former smoker 09/17/2018 Coronary artery disease invo lving [place] coronary artery of [place] heart without angina pectoris 08/20/2018 Overview (08/20/2018): Added automatically from request for surgery [id number] Hx of CABG 08/20/2018 Overview (08/20/2018): Added automatically from request for surgery [id number] ICD (implantable cardioverter-defibrillator) in place 06/21/2018 Overview (02/06/2019): [employer] Anjum Single ICD. Dx; ICM. Gen Change 02/06/2019, chronic lead 01/23/2012. [place] remote monitoring Q3 mo, office device checks [...] PAROX VENTRIC TACHYCARD Chronic systolic heart failure 01/20/2013 Overview (12/13/2016): CHR SYSTOLIC HRT FAILURE Resolved Problems Problem Noted Date Diagnosed Date Resolved Date Pneumonia due to infectious organism 09/17/2018 10/26/2021 Non-rheumatic mitral regurgitation 09/17/2018 10/13/2024 LV dysfunction 08/20/2018 09/17/2018 Overview (08/20/2018): Added automatically from request for surgery [id number] Obesity (BMI 30.0-34.9) 06/21/201809/10 Smoker 06/23/2016 09/23/2019 Overview (12/14/2016): Smoker Supraventricular tachycardia 12/31/2015 10/13/2024 Overview (12/14/2016): Sustained SVT Postprocedural state 07/14/2013 018 Overview (12/13/2016): S/P MVR (mitral valve repair) Coronary arteriosclerosis in [place] artery 07/14/2013 09/17/2018 Overview (12/15/2016): CRNRY ATHRSCL [...] on file Legal Sex Male 9:49 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 Gender Identity Not on file Sexual Orientation Not on file Last Filed Vital Signs Vital Sign Reading Time Taken Comments Blood Pressure 120/64 10/13/2024 1:39 PM LINE INSTALLER Pulse 72 10/13/2024 1:39 PM LINE INSTALLER Temperature 36.2 C (97.1 F) 12/02/2020 1:48 PM CDT Respiratory Rate 16 09/23/2019 3:31 PM LINE INSTALLER Oxygen Saturation 92% 10/13/2024 1:39 PM LINE INSTALLER Inhaled Oxygen Concentration - - Weight 119.3 kg (263 lb) 10/13/2024 1:39 PM LINE INSTALLER Height 180.3 cm (5' 11 ) 10/13/2024 1:39 PM LINE INSTALLER Body Mass Index 36.68 10/13/2024 1:39 PM LINE INSTALLER Plan of Treatment Not on file Medical Devices Implanted Type Area Health Inspector Food Device Identifier Shelf Expiration Date Model / Serial / Lot Icd ICD Left: Chest Medtronic [employer] X [id number] Resolute Nitish 4mm 2.1-2.7fr 18mm 140cm Rapid Exchange Radiopaque - [id number] Implanted:Qty: 1 on 08/29/2018 by Antonio Mejia MD at [facility] Stent Medtronic U[employer] X 05/08/2020 [id number] / / [id number] Medtronic [employer] X [id number] Resolute Burgin 4.5mm 2.1-2.7fr 18mm 140cm Rapid Exchange - [id number] Implanted:Qty: 1 on 08/29/2018 by Antonio Mejia MD at [facility] Stent Medtronic [employer] X 02/19/2020 [id number] / / [id number] Medtronic [employer] X [id number] Resolute Nitish 5mm 2.1-2.7fr 18mm 140cm Rapid Exchange Radiopaque - [id number] Implanted:Qty: 1 on 08/29/2018 by Antonio Mejia MD at [facility] Stent Medtronic [employer] X 07/11/2020 [id number] / / [id number] Daig Katie/[employer] [id number] Angio-Seal Vip Bondek-Plus 6fr .035in 70cm Hemostatic Latex Free - [id number] Implanted:Qty: 1 on 08/29/2018 by Antonio Mejia MD at [facility] Daig Katie/[employer] 06/09/2019 [id number] / / [id number] Daig Katie/[employer] [id number] Angio-Seal Vip Bondek-Plus 8fr .038in 70cm Hemostatic Latex Free - [id number] Implanted:Qty: 1 on 08/29/2018 by Antonio Mejia MD at [facility]/[employer] 11/07/2018 [id number] / / [id number] Procedures Procedure Name Priority Date/Time Associated Diagnosis Comments DEVICE CHECK - REMOTE Routine 10/21/2024 10:33 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 Ischemic cardiomyopathy Paroxysmal ventricular tachycardia (HCC) POCT LIPID PANEL Routine 03/03/2024 10:4 2 AM CDT Hyperlipidemia associated with type 2 diabetes mellitus (HCC) BASIC METABOLIC PANEL Routine 02/27/2023 Chronic systolic heart failure (HCC) Ischemic cardiomyopathy from Last 3 Months or Most Recently Relevant to Health Maintenance Results * DEVICE CHECK - REMOTE (10/21/2024 10:33 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) Anatomical Region Laterality Modality Other Narrative 11/03/2024 9: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 Anjum Single ICD. Dx; ICM. Gen Change 02/06/2019, chronic lead 01/23/2012. [place] remote monitoring Q3 mo, office device checks Q1 yr. Routine VVI ICD Remote. Transmission attached. Battery status 51%, 4.6 years remaining battery life to RODNEY. Stable Charge time and Shock impedance. Stable lead impedances, pacing, and sensing threshold. Presenting rhythm: V sensed regular CONSULTING DATABASE ADMINISTRATOR-< 1 % (0) Ventricular tachy arrhythmias detected. Medication: Brilinta 60 mg, ASA 81 mg, metoprolol 100 mg, Entresto Follow up: Office Pacemaker/ICD scheduled 10/21/25 [place] remote 01/20/25 Mayur Bhakta, JEANNIE us El Mishra MD CV CARDIAC SERVICES PROCEDURES Final Result * POCT lipid panel (03/03/2024 10:42 AM [...] - EXTERNAL LAB SCRIBED eGFR in NonAfrican Belgian >60 - - >60 EXTERNAL LAB Blood 02/27/2023 us Asha Lowery MD LAB BLOOD ORDERABLES Final Result EXTERNAL LAB from Last 3 Months or Most Recently Relevant to Health Maintenance Insurance [facility] CLAIMS MEDICARE FOR LIFE Care Teams Diamond Selector Relationship Specialty Start Date End Date Heri Arroyo MD [address] [facility] [address] [place] [address] PCP - General Family Medicine 10/13/24
--- OUTSIDE RECORDS SUMMARY | 2025-01-06 07:50 | XMS_ITS | Clinical Summary ---
Author Organization [facility] Address [address] [place] [address] Phone Care Team Providers Care Music Educator Name Role Phone Unavailable Unavailable Unavailable Reason [...] Time Diagnosis CHECK UP [facility] 04/22/200 8 3:29PM 11:59PM Clinical Notes Includes: Clinical Notes from this encounter No Clinical Notes Recorded
--- OUTSIDE RECORDS SUMMARY | 2025-01-06 07:51 | XMS_ITS | Clinical Summary ---
Author Organization [facility] Address [address] [place] [address] Phone Care Team Providers Care Artificial Limb Maker Name Role Phone Unavailable Unavailable Unavailable Reason [...] Diagnosis 1 WK CK-UP [facility] 8 2:34PM 11:59PM Clinical Notes Includes: Clinical Notes from this encounter No Clinical Notes Recorded
--- OUTSIDE RECORDS SUMMARY | 2025-01-06 07:51 | XMS_ITS | Encounter Summary ---
Author Organization [facility] Address [address] [facility] [address] [place] [address] Care Team Providers Care Jig Operator Name Role Phone Alena Castro MD Primary Care Provider + Alena Castro MD Primary Care Provider + Adan Guzman MD Primary Care Provider [phone] Mariajose Becerra NP Primary Care Provider [phone] Radha Hall MD Primary Care Provider Heri Arroyo MD Primary Care Provider Encounter Details Date Type Department Care Team (Late st Contact Info) Description 10/24/2016 Orders Only [facility] Provider, MD Lillie [address] [place] [address] Social History Tobacco Use Types Packs/Day Years Used Date Smoking Tobacco: Light Smoker Cigarettes Last attempted t o quit: 09/10/2011 Comments:Smoking History Pac ks/day: 5 Cigarettes Alcohol Use Standard Drinks/Week Comments Yes 0 (1 standard drink = 0.6 oz pur e alcohol) Sex and Gender Information Value Date Recorded Sex Assigned at Not on file Legal Sex Male 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 Gender Identity Not on file Sexual Orientation [...] on filedocumented in this encounter Care Teams Jig Operator Relationship Specialty Start Date End Date Alena Castro MD [address] [place] [address] PCP - General 12/08/16 03/04/18 Alena Castro MD [address] [place] [address] PCP - General 03/04/12 12/07/16 Adan Guzman MD [address] [facility] [address] [place] [address] PCP - General Internal Medicine 03/05/18 11/01/20 Mariajose Becerra NP [address] [facility] [address] [place] [address] PCP - General Nurse Practitioner 11/02/20 10/25/21 Radha Hall MD [address] [place] [address] PCP - General Family Medicine 10/26/21 10/12/24 Heri Arroyo MD [address] [place] [address] PCP - General Family Medicine 10/13/24 documented as of this encounter
--- OUTSIDE RECORDS SUMMARY | 2025-01-06 07:51 | XMS_ITS | Clinical Summary ---
Author Organization [facility] [address] [facility] [address] Address [address] [place] [address] Care Team Providers Care Spout Worker Name Role Phone Heri Arroyo MD Primary [...] 60 mg tabletIndicati ons:Coronary artery disease involving [place] coronary artery of [place] heart without angina pectoris,Hx of CABG,S/P drug [...] smoker 09/17/2018 Coronary artery disease invo lving [place] coronary artery of [place] heart without angina pectoris 08/20/2018 Overview (08/20/2018): Added automatically from request for surgery [id number] Hx of CABG 08/20/2018 Overview (08/20/2018): Added automatically from request for surgery [id number] ICD (implantable cardioverter-defibrillator) in place 06/21/2018 Overview [...] (08/20/2018): Added automatically from request for surgery [id number] Obesity (BMI 30.0-34.9) 06/21/201809/10 Smoker 06/23/2016 09/23/2019 Overview (12/14/2016): Smoker Supraventricular tachycardia 12/31/2015 10/13/2024 Overview (12/14/2016): Sustained SVT Postprocedural state 07/14/2013 018 Overview (12/13/2016): S/P MVR (mitral valve repair) Coronary arteriosclerosis in [place] artery 07/14/2013 09/17/2018 Overview (12/15/2016): CRNRY ATHRSCL [...] Department Care Team Description 10/21/2024 7:30 AM SENIOR LOSS CONTROL SPECIALIST Ancillary Procedure [facility] Cardiology [address] [place] [address] [place] [phone] ICD (implantable cardioverter-defibrill ator) in place (Primary Dx); Ischemic cardiomyopathy; Paroxysmal ventricular tachycardia (HCC) 10/21/2024 Orders Only [facility] Cardiology [address] [place] [address] [place] [phone] El Mishra MD ICD (implantable cardioverter-defibrill ator) in place (Primary Dx); Ischemic cardiomyopathy 10/13/2024 1:30 PM SENIOR LOSS CONTROL SPECIALIST Office Visit [facility] Cardiology [address] [place] [phone] El Mishra MD History of mitral valve repair (Primary Dx); Hx of CABG; Multiple-type hyperlipidemia; Coronary artery disease involving [place] coronary artery of [place] heart without angina pectoris; Ischemic cardiomyopathy; S/P [...] Hyperlipidemia Ischemic cardiomyopathy CHF (congestive heart failure) (HCC) Mitral regurgitation Sleep apnea Diabetes mellitus (HCC) SEP 2020 Heart disease SEP 2009 Family History Medical History Relation Name Comments Diabetes Brother CARLYN TEIXEIRA JR Diabetes Father Carlyn Teixeira Other Father Carlyn Teixeira healthy; COPD Mother LAURITA TEIXEIRA COPD; Diabetes type II Mother LAURITA TEIXEIRA Diabetes Ty pe II; Relation Name Status Comments Brother CARLYN TEIXEIRA JR Alive Father Carlyn Box Alive Mother LAURITA BOX Alive Social History Tobacco Use Types Packs/Day Years Used Date Smoking Tobacco: Former Cigarettes Q uit: 08/20/2018 Smokeless Tobacco: Never Tobacco Cessation:Counseling Given: Not Answered Alcohol Use Standard Drinks/Week Comments Yes 0 (1 standard drink = 0.6 oz pur e alcohol) occassional Sex and Gender Information Value Date Recorded Sex Assigned at Not on file Legal Sex Male 9:49 AM SENIOR LOSS CONTROL SPECIALIST Gender Identity Not on file Sexual Orientation Not on file Obstetrics History Last Filed Vital Signs Vital Sign Reading Time Taken Comments Blood Pressure 120/64 10/13/2024 1:39 PM SENIOR LOSS CONTROL SPECIALIST Pulse 72 10/13/2024 1:39 PM SENIOR LOSS CONTROL SPECIALIST Temperature 36.2 C (97.1 F) 12/02/2020 1:48 PM CDT Respiratory Rate 16 09/23/2019 3:31 PM SENIOR LOSS CONTROL SPECIALIST Oxygen Saturation 92% 10/13/2024 1:39 PM SENIOR LOSS CONTROL SPECIALIST Inhaled Oxygen Concentration - - Weight 119.3 kg (263 lb) 10/13/2024 1:39 PM SENIOR LOSS CONTROL SPECIALIST Height 180.3 cm (5' 11 ) 10/13/2024 1:39 PM SENIOR LOSS CONTROL SPECIALIST Body Mass Index 36.68 10/13/2024 1:39 PM SENIOR LOSS CONTROL SPECIALIST Plan of Treatment Health Maintenance Due Date Last Done Comments Albumin Creatinine Ratio, Urine 1970 Colon Cancer Screening-Colonoscopy 1969 Depression Screening 1969 Hemoglobin A1C 1969 Hepatitis C Screening 1969 Prostate Cancer Screening-PSA 1969 Dilated Eye Exam 1969 Foot Exam 1969 DTaP/Tdap/Td Vaccine (1 - Tdap) 1980 Hepatitis B Screening 1987 Regular Well Visit/Exam 18-64 1987 Pneumococcal vaccine <65 (1 of 2 - PCV) 1988 Zoster Vaccine (1 of 2) 2019 eGFR 02/28/2024 02/27/2023, 08/10, 07/31/2018 Lipid Panel 03/03/2025 03/03/2024, 10/12, 10/19/2021, Additional history exists Influenza Vaccine (Season Ended) 2025 Medical Devices Implanted Type Area Pediatric Physiatrist Device Identifier Shelf Expiration Date Model / Serial / Lot Icd ICD Left: Chest Medtronic [employer] X [id number] Resolute Empire 4mm 2.1-2.7fr 18mm 140cm Rapid Exchange Radiopaque - [id number] Implanted:Qty: 1 on 08/29/2018 by Antonio Mejia MD at [facility] Stent [employer] X 05/08/2020 [id number] / / [id number] Med[employer] X [id number] Resolute Nitish 4.5mm 2.1-2.7fr 18mm 140cm Rapid Exchange - [id number] Implanted:Qty: 1 on 08/29/2018 by Antonio Mejia MD at [facility] Stent [employer] X 02/19/2020 [id number] / / [id number] Med[employer] X [id number] Resolute Nitish 5mm 2.1-2.7fr 18mm 140cm Rapid Exchange Radiopaque - [id number] Implanted:Qty: 1 on 08/29/2018 by Antonio Mejia MD at [facility] Stent Med[employer] X 07/11/2020 [id number] / / [id number] Daig Katie/[employer] [id number] Angio-Seal Vip Bondek-Plus 6fr .035in 70cm Hemostatic Latex Free - [id number] Implanted:Qty: 1 on 08/29/2018 by Antonio Mejia MD at [facility] Daig Katie/[employer] 06/09/2019 [id number] / / [id number] Daig Katie/[employer] [id number] Angio-Seal Vip Bondek-Plus 8fr .038in 70cm Hemostatic Latex Free - [id number] Implanted:Qty: 1 on 08/29/2018 by Antonio Mejia MD at [facility] Daig Katie[employer] 11/07/2018 [id number] / / [id number] Procedures Procedure Name Priority Date/Time Associated Diagnosis Comments DEVICE CHECK - REMOTE Routine 10/21/2024 10:33 AM SENIOR LOSS CONTROL SPECIALIST Ischemic cardiomyopathy Paroxysmal ventricular tachycardia (HCC) POCT LIPID PANEL Routine 03/03/2024 10:4 2 AM CDT Hyperlipidemia associated with type 2 diabetes mellitus (HCC) BASIC METABOLIC PANEL Routine 02/27/2023 Chronic systolic heart failure (HCC) Ischemic cardiomyopathy from Last 3 Months or Most Recently Relevant to Health Maintenance Results * DEVICE CHECK - REMOTE (10/21/2024 10:33 AM SENIOR LOSS CONTROL SPECIALIST) Anatomical Region Laterality Modality Other Narrative 11/03/2024 9:20 AM SENIOR LOSS CONTROL SPECIALIST [employer] An[employer] Single ICD. Dx; ICM. Gen Change 02/06/2019, chronic lead 01/23/2012. [place] remote monitoring Q3 mo, office device checks Q1 yr. Routine VVI ICD Remote. Transmission attached. Battery status 51%, 4.6 years remaining battery life to RODNEY. Stable Charge time and Shock impedance. Stable lead impedances, pacing, and sensing threshold. Presenting rhythm: V sensed regular SMELTER CHARGER-< 1 % (0) Ventricular tachy arrhythmias detected. Medication: Brilinta 60 mg, ASA 81 mg, metoprolol 100 mg, Entresto Follow up: Office Pacemaker/ICD scheduled 10/21/25 [place] remote 01/20/25 Mayur Bhakta, JEANNIE El Mishra MD CV CARDIAC SERVICES PROCEDURES Final Result * POCT lipid panel (03/03/2024 10:42 AM CDT) Pathologist [facility] Cholesterol, POC 133 mg/dL Comment:GLU = 157 HDL, POC 26 mg/dL Triglycerides, POC 368 mg/dL LDL Cholesterol POC 33 mg/dL Chol/HDL Ratio, POC 1.3 Non-HDL Cholesterol, POC 107 mg/dL Cholesterol Total, POC 133 mg/dL Capillary blood 03/03/2024 1 0:42 AM CDT El Mishra MD POINT OF CARE TEST O RDERABLES Final Result * (ABNORMAL) Basic metabolic panel (02/27/2023) Pathologist [facility] SCRIBED Sodium 138 137 - 145 mmol/L [...] - EXTERNAL LAB SCRIBED eGFR in NonAfrican Kenyan >60 - - >60 EXTERNAL LAB Blood 02/27/2023 Asha Lowery MD LAB BLOOD ORDERABLES Final Result EXTERNAL LAB from Last 3 Months or Most Recently Relevant to Health Maintenance Insurance MEDICARE FOR LIFE Care Teams Spout Worker Relationship Specialty Start Date End Date Heri Arroyo MD [address] [facility] [address] [place] [address] PCP - General Family Medicine 10/13/24
--- OUTSIDE RECORDS SUMMARY | 2025-01-06 07:51 | XMS_ITS | Clinical Summary ---
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 02/12/20 09 4:35PM 11:59PM Clinical Notes Includes: Clinical Notes from this encounter No Clinical Notes Recorded
--- OUTSIDE RECORDS SUMMARY | 2025-01-06 07:51 | XMS_ITS ---
Author Organization [facility] Address [address] [place] [address] Phone Care Team Providers Care Canoe Inspector Final Name Role Phone Unavailable Unavailable Unavailable Plan of Treatment No Plan of Treatment Recorded Assessments Includes: Assessments for all patient encounters No Assessments Recorded Medical Equipment - Implanted Devices Includes: Current and historical Devices No Medical Equipment Recorded Medications Administered Includes: Administered Medications in patient's chart No Administered Medications Recorded Results Includes: Results from 01/07/2024 through 01/06/2025 No Results Recorded For Specified Dates History of Present Illness History of Present Illness not supported for this document type No History of Present Illness Recorded Social History Description Last Updated Abnormal diet REGULAR 02/11/2009 Last Documented On 9 4:38PM ; [facility] Alcohol 1 NIGHT A WEEK 02/11/2009 Last Documented On 9 4:38PM ; [facility] Cigarette smoking 2 PACKS PER DAY 2008 Last Documented On 9 4:38PM ; [facility] Exercise frequency FREQUENT 02/11/2009 Last Documented On 9 4:38PM ; [facility] 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
--- OUTSIDE RECORDS SUMMARY | 2025-01-06 07:51 | XMS_ITS ---
Care Plan - [facility] Created on: January 06, 2025 SHANTE BEDOYA : 1970 Sex: Male Author Organization [facility] Address [address] [place] [address] Phone Care Team Providers Care Ice Cream Machine Operator Name Role Phone Unavailable Unavailable Unavailable
--- OUTSIDE RECORDS SUMMARY | 2025-01-06 07:51 | XMS_ITS | Continuity of Care Document ---
Author Name [facility] Organization [facility] Care Team Providers Care Customs Compliance Specialist Name Role Phone [facility] Unavailable Unavailable Problems Combined list of problems from Department of Defense and Veterans Affairs facilities. It does not include entries that were removed or entered in error. Problem Status Onset Date Problem Type Date of Resolution Comments Source visit for: services physical Inactive Condition DoD visit for: issue medical certificate Inactive Condition PRT Waiver accomplished DoD abdominal pain Inactive Condition [facility] visit for: administrative purpose Inactive Condition [facility] visit for: postsurgical exam Inactive Condition [facility] SORE THROAT ACUTE Inactive Condition NO N-SPECIFIC SORETHROAT. PROBABLE RELATED TO ALLERGIES VS. GERD. NO SIGNS OF INFECTION. D/C TOBACCO. PUSH ORAL FLUIDS. DoD NICOTINE DEPENDENCE Active Condition [facility] COMPRESSION ARTHRALGIA - HAND Active Condition [facility] limb pain Inactive Condition [facility] NONSPECIFIC ABNORMAL FINDINGS Active Condition [facility] Patient Education Active Condition [facility] visit for: occupational health / fitness exam Inactive Condition [facility] visit for: ears, nose, and throat exam Inactive Condition DoD MUSCLE SPASM Active Condition DoD NONSPECIFIC ABNORMAL FINDINGS Active Condition lump in ri ght side of chest [id number] to GI for f/u. F/u with PCM after GI evaluation DoD PHARYNGITIS Inactive Condition [facility] ASSESS PATIENT CONDITION WORK-RELATED OCCUPATIONAL DISEASE Inactive Condition [facility] Medications Combined list of outpatient medications from Department of Defense and Veterans Affairs facilities.Medications provided include 1) outpatient medications from the last 15 months, and 2) patient-reported medications. Medication Details Route Status Patient Instructions Prescription Expires Prescription Number Last Dispense Date Ordering Provider Order Date Order Qty Source BRILINTA (ticagrelor ), 60 MG, TABLET, ORAL, ASTRAZENECA , 60 ea. BOTTLE Active [id number] 2023 180 Pharmac y Data Transac tion Service Facilit y ENTRESTO (sacubitril /valsartan) , 97MG-103MG, TABLET, ORAL, NOVARTIS, 60 ea. BOTTLE Active [id number] 4 2023 180 Pharmac y Data Transac tion Service Facilit y ENTRESTO (sacubitril /valsartan) , 97MG-103MG, TABLET, ORAL, NOVARTIS, 60 ea. BOTTLE Active [id number] 4 2023 180 Pharmac y Data Transac tion Service Facilit y FREESTYLE ADAMA 3 SENSOR (flash glucose sensor), KIT, MISCELL, ORR DIABETES, 1 ea. KIT Active [id number] 2023 6 Pharmac y Data Transac tion Service Facilit y INSULIN LISPRO KWIKPEN U-100 (insulin lispro), 100/ML, INSULN PEN, SUBCUT, [employer] 3 ml SYRINGE Active [id number] 2023 30 Pharmac y Data Transac tion Service Facilit y INSULIN LISPRO KWIKPEN U-100 (insulin lispro), 100/ML, INSULN PEN, SUBCUT, [employer] 3 ml SYRINGE Active [id number] 4 2023 30 Pharmac y Data Transac tion Service Facilit y JARDIANCE (EMPAGLIFLO ZIN), 10 MG, TABLET, ORAL, BOEHRINGER ING., 30 ea. BOTTLE Cancele d [id number] : 2023 0 Pharmac y Data Transac tion Service Facilit y JARDIANCE (EMPAGLIFLO ZIN), 10 MG, TABLET, ORAL, BOEHRINGER ING., 30 ea. BOTTLE Cancele d [id number] : 2023 0 Pharmac y Data Transac tion Service Facilit y JARDIANCE (EMPAGLIFLO ZIN), 10 MG, TABLET, ORAL, BOEHRINGER ING., 30 ea. BOTTLE Active [id number] 4 2023 30 Pharmac y Data Transac tion Service Facilit y JARDIANCE (EMPAGLIFLO ZIN), 10 MG, TABLET, ORAL, BOEHRINGER ING., 90 ea. BOTTLE Active [id number] 4 2023 90 Pharmac y Data Transac tion Service Facilit y LANTUS SOLOSTAR (INSULIN GLARGINE, M.REC.ANLOG ), 100/ML (3), INSULN PEN, SUB-Q, SANOFI-AVEN TIS, 3 ml SYRINGE Active [id number] 4 2023 30 Pharmac y Data Transac tion Service Facilit y LANTUS SOLOSTAR (INSULIN GLARGINE,[facility].ANLOG ), 100/ML (3), INSULN PEN, SUB-Q, SANOFI-AVEN TIS, 3 ml SYRINGE Active [id number] 2023 15 Pharmac y Data Transac tion Service Facilit y LANTUS SOLOSTAR (INSULIN GLARGINE,[facility].ANLOG ), 100/ML (3), INSULN PEN, SUB-Q, SANOFI-AVEN TIS, 3 ml SYRINGE Active [id number] 4 2023 15 Pharmac y Data Transac tion Service Facilit y METOPROLOL TARTRATE (metoprolol tartrate), 100 MG, TABLET, ORAL, [employer] 1000 ea. BOTTLE Active [id number] 4 2023 180 Pharmac y Data Transac tion Service Facilit y RUSS 2ND GEN PEN NEEDLE (pen needle, diabetic), 32GX , DIS NEEDLE, MISCELL, BD DIABETES/EM B, 100 ea. BOX Active [id number] 4 2023 300 Pharmac y Data Transac tion Service Facilit y Allergies, Adverse Reactions, Alerts Combined list of allergies from Department of Defense and Veterans Affairs facilities. It does not include entries that were removed or entered in error. Substance Category Reaction Severity Reaction type Status Date Reported Comments Source No Known Allergies Drug allergy (disorder) active 06/05/2006 [facility] Immunizations Combined list of available immunizations from the Department of Defense and Veterans Affairs facilities. Immunization Series Date Given Administered By Site Reaction Lot Number CVX Code Drug Site Head Status Comments Source influenza virus vaccine,split 2004 [id number] Unknown complet ed influenza virus vaccine,s [...] to the last 18 months, not all [place] inpatient encounters are included; 2) Encounters from the Department of Defense facilities going backup to 280 months. Location Location Details Encounter Type Encounter Number Reason For Visit Attending Provider ADM Date DC Date Status Disposition Source [place]) OUTPATIENT [id number] HORACE Cali 08/23 Released w/o Limitations [place]) [place] OUTPATIENT [id number] SORE THROAT FULWADHVA, OZ P 09/29 Released w/o Limitations [place] OUTPATIENT [id number] F/U LUMP ON CHEST FULWADHVA, OZ P 10/05 Released w/o Limitations [place] [place] OUTPATIENT [id number] upper back spasms, denies trauma JEREMIAH WORRELL 11/28 Sick at Home/Quarter s [place]) [facility] [place] ion) OUTPATIENT [id number] hearing conserv ation NA JACKSON 04/11 Released w/o Limitations [place] [place]) OUTPATIENT [id number] LUMP IN CHEST SRAVAN GONSALES A 04/12 Released w/o Limitations [facility] [place] OUTPATIENT [id number] F/U XRAY GONSALES, SRAVAN A 04/13 Released w/o Limitations [facility] [place] OUTPATIENT [id number] SORETHR MERARY HANSEN 05/02 Released w/o Limitations [place] OUTPATIENT [id number] ACUTE ABDOMIN AL PAIN GONSALES, SRAVAN A 05/10 Released with Work/Duty Limitations [place]) [place] OUTPATIENT [id number] f/u er GONSALES, SRAVAN A 05/15 Sick at Home/Quarter [place] OUTPATIENT [id number] PRT SCREENI JEREMIAH DAVENPORT 06/05 Released with Work/Duty Limitations [place]) [place]) OUTPATIENT [id number] retirem ent MAUDE IVEY 06/12 Released w/o Limitations [place]) Procedures Combined list of: 1) Procedures from Department of Veterans Affairs facilities [facility], not all [facility] non-surgical procedures are included; 2) All procedures from the Department of Defense facilities. Procedure Procedure Type Code Date Perfomer Comments Sourc e No data available for this section Ambulato ry Pharmacy -Supervised Services Provision Of Educational Supplies -Supervised Services Provision Of Educational Supplies 77818 6 SRAVAN GONSALES DoD Threshold Audiogram (Pure Tone) Threshold Audiogram (Pure Tone) 91209 6 NA DOS SANTOS DoD PURE TONE AUDIOMETRY (THRESHOLD); AIR ONLY 6 DoD COMPREHENSIVE AUDIOMETRY THRESHOLD EVALUATION AND SPEECH RECOGNITION (80210 AND 01443 COMBINED) 5 DoD PURE TONE AUDIOMETRY (THRESHOLD); AIR ONLY 4 DoD COMPREHENSIVE AUDIOMETRY THRESHOLD EVALUATION AND SPEECH RECOGNITION (95138 AND 40982 COMBINED) 4 DoD COMPREHENSIVE AUDIOMETRY THRESHOLD EVALUATION AND SPEECH RECOGNITION (67062 AND 23138 COMBINED) 4 DoD SCREENING TEST OF VISUAL ACUITY, QUANTITATIVE, BILATERAL 4 DoD COMPREHENSIVE AUDIOMETRY THRESHOLD EVALUATION AND SPEECH RECOGNITION (79515 AND 93809 COMBINED) 3 DoD FITTING OF SPECTACLES, EXCEPT FOR APHAKIA; MONOFOCAL 2 DoD COMPREHENSIVE AUDIOMETRY THRESHOLD EVALUATION AND SPEECH RECOGNITION (78707 AND 26835 COMBINED) 2 DoD UNLISTED DIAGNOSTIC RADIOGRAPHIC PROCEDURE [...] ADDICTION COUNSELLING 0 DoD OTHER GROUP THERAPY 07/12/20 0 0 DoD OTHER INDIVIDUAL PSYCHOTHERAPY 0 DoD SUPPORTIVE VERBAL PSYCHOTHERAPY 0 DoD EXPLORATORY VERBAL PSYCHOTHERAPY 0 DoD CRISIS INTERVENTION 03/21/20 0 0 DoD BEHAVIOR THERAPY 0 DoD OTHER PSYCHIATRIC SOMATOTHERAPY 0 DoD OTHER PSYCHIATRIC INTERVIEW AND EVALUATION 0 DoD PSYCHIATRIC MENTAL STATUS DETERMINATION 0 DoD PSYCHOLOGIC MENTAL STATUS DETERMINATION, NOT OTHERWISE SPECIFIED 0 [facility] OTHER PSYCHOLOGIC EVALUATION AND TESTING 0 DoD REHABILITATION, NOT ELSEWHERE CLASSIFIED 0 DoD OCCUPATIONAL THERAPY 0 DoD RECREATIONAL THERAPY 0 DoD GENERAL PHYSICAL EXAMINATION 0 DoD ALCOHOL DETOXIFICATION 0 DoD INDIVIDUAL PSYCHOTHERAPY, INSIGHT ORIENTED, BEHAVIOR MODIFYING AND/OR SUPPORTIVE, IN AN OFFICE OR OUTPATIENT FACILITY, APPROXIMATELY 75 TO 80 MINUTES [id number] WITH THE PATIENT 0 [facility] Social History Combined list of available smoking, tobacco, and other social history from Department of Defense and Veterans Affairs facilities. Social History Type Response Date Comment Sour e Sexual Orientation Ambula tory Pharmacy Gender identity Ambulator y Pharmacy Sex Representation Male (finding) Un known Organization This section is an empty soc ial [...] Plan No data available for this section 01/06/2025 Ambulatory Pharmacy Functional Status Combined list of recent functional and cognitive assessments recorded at Department of Defense and Veterans Affairs (VA).VA Functional [place] Measurement (FIM) Scale: 1 = Total Assistance (Subject = 0% +), 2 = Maximal Assistance (Subject = 25% +), 3 = Moderate Assistance (Subject = 50% +), 4 = Minimal Assistance (Subject = 75% +), 5 = Supervision, 6 = Modified [place] (Device), 7 = Complete [place] (Timely, Safely). Assessment Date/Time Source Assessment Type Assessment Skill Assessment Score Assessment Details No data available for this section
--- OUTSIDE RECORDS SUMMARY | 2025-01-06 07:51 | XMS_ITS | Encounter Summary ---
Author Organization [facility] Address [address] [place] [address] Care Team Providers Care Gusset Folder Name Role Phone Alena Castro MD Primary Care Provider + Adan Guzman MD Primary Care Provider [phone] Mariajose Becerra NP Primary Care Provider [phone] Radha Hall MD Primary Care Provider Heri Arroyo MD Primary Care Provider Encounter Details Date Type Department Care Team (Late st Contact Info) Description 01/23/2017 Orders Only [facility] ProviderLillie MD [address] [place] [id number] Social History Tobacco Use Types Packs/Day Years Used Date Smoking Tobacco: Light Smoker Cigarettes Last attempted t o quit: 09/10/2011 Comments:Smoking History Pac ks/day: 5 Cigarettes Alcohol Use Standard Drinks/Week Comments Yes 0 (1 standard drink = 0.6 oz pur e alcohol) Sex and Gender Information Value Date Recorded Sex Assigned at Not on file Legal Sex Male 9:49 AM MISSILE INSPECTOR PREFLIGHT Gender Identity Not on file Sexual Orientation [...] on filedocumented in this encounter Care Teams Gusset Folder Relationship Specialty Start Date End Date Alena Castro MD [address] [place] [address] PCP - General 12/08/16 03/04/18 Adan Guzman MD [address] [place] [address] PCP - General Internal Medicine 03/05/18 11/01/20 Mariajose Becerra NP [address] [place] [address] PCP - General Nurse Practitioner 11/02/20 10/25/21 Radha Hall MD [address] [place] [address] PCP - General Family Medicine 10/26/21 10/12/24 Heri Arroyo MD [address] [place] [address] PCP - General Family Medicine 10/13/24 documented as of this encounter
--- OUTSIDE RECORDS SUMMARY | 2025-01-06 07:51 | XMS_ITS | Clinical Summary ---
Author Organization [facility] Address [address] [place] [address] Phone Care Team Providers Care Melter Supervisor Name Role Phone Unavailable Unavailable Unavailable [...] Diagnosis NEW PATIENT VISIT BRANDIE MAYERS [facility] 02/17/20 08 2:33PM 11:59PM Clinical Notes Includes: Clinical Notes from this encounter No Clinical Notes Recorded
[2025-01-06 08:21] LABS: Basophils Absolute Auto 0.1 K/mm3 (0.0-0.1); Eosinophils Absolute Auto 0.3 K/mm3 (0-0.3); Eosinophils Percent Auto 4.4 % (0-4.4); Hemoglobin 15.9 g/dL (14.0-18.0); Immature Granulocyte Absolute 0.04 K/mm3 (0.00-0.031); Immature Granulocyte Percent A 0.7 % (0-0.5); Immature Platelet Fraction Pct 7.1 % (0.9-11.2); Lymphocytes Absolute Auto 1.93 K/mm3 (0.9-3.2); Lymphocytes Percent Auto 31.4 % (18.3-44.2); Mean Corpuscular HGB Conc 33.1 g/dl (32-36); Mean Corpuscular Hemoglobin 29.3 pg (26-34); Mean Corpuscular Volume 88.4 fl (80-100); Mean Platelet Volume 10.9 fl (7.4-10.4); Monocytes Absolute Auto 0.7 K/mm3 (0.1-0.6); Monocytes Percent Auto 11.7 % (2.6-8.5); Neutrophils Absolute Auto 3.1 K/mm3 (1.3-6.7); Neutrophils Percent Auto 50.8 % (45.5-73.1); Platelet Count Result 144 k/mm3 (150-375); Red Blood Count 5.43 M/mm3 (4.6-6.20); Red Cell Distribution Width 13.4 % (11.5-14.5); White Blood Count 6.1 K/mm3 (4.5-10.0)
[2025-01-06 08:32] LABS: LDL Cholesterol Direct 42 mg/dL
[2025-01-06 08:34] LABS: Alanine Aminotransferase 53 U/L (6-50); Albumin Level 4.5 g/dL (3.5-5.1); Alkaline Phosphatase 128 U/L (38-126); Anion Gap 7 mmol/L (4-12); Aspartate Amino Transferase 36 U/L (17-59); Blood Urea Nitrogen 19 mg/dL (9-20); Calcium 9.3 mg/dL (8.4-10.2); Carbon Dioxide 28 mmol/L (22-30); Chloride 100 mmol/L (98-107); Cholesterol 159 mg/dL (0-200); Estimated Glomerular Filt Rate > 60; Glucose 294 mg/dL (65-110); HDL Direct 38 mg/dL; Potassium 4.5 mmol/L (3.4-5.0); Sodium 135 mmol/L (137-145)
[2025-01-06 08:37] LABS: Triglycerides 611 mg/dL (<150)
[2025-01-06 08:52] LABS: Creatinine Urine 95.7 mg/dL
[2025-01-06 08:57] LABS: Hemoglobin A1C 11.6 % (<5.7)
[2025-01-06 09:14] LABS: Microalbumin Urine Random 310.1 mg/L (0-16.7)
== END 2025-01-06 07:48 | disposition home or self-care (01) ==
PROVIDERS: PCP Family Medicine; Visit Provider Student in an Organized Health Care Education/Training Program
DX: E78.5 Hyperlipidemia, unspecified (principal); I10 Essential (primary) hypertension; E11.65 Type 2 diabetes mellitus with hyperglycemia; Z79.4 Long term (current) use of insulin
CPT/HCPCS: 36415; 80053; 80061; 82043; 83036; 85025; 85055

== ENCOUNTER 2025-03-18 00:10 | Day surgery (SDC) | payer MEDICARE, OTHER, SELFPAY ==
[2025-03-06 13:35] VITALS: BMI 35.6
--- NOTE | 2025-03-09 11:20 | PC.NURSE ---
Pt notified last dose of Brilinta to be on 03/13/25. Pt stated understanding.
--- OUTSIDE RECORDS SUMMARY | 2025-03-18 00:14 | XMS_ITS | Clinical Summary ---
Author Organization [facility] [address] Address [address] [place] [address] Care Team Providers Care Ladies Suit Operator Name Role Phone Heri Arroyo MD Primary [...] unit/mL (3 mL) pen for injection Active Jardiance 10 mg tablet Take 1 tablet (10 mg total) by mouth daily 08/08/20 24 Active acidophilus-pe ctin, citrus 100 million cell-10 mg capsule Take by mouth Active Trelegy Ellipta 100-62.5-25 mcg inhaler 10/01/19 25 Active metoprolol (LOPRESSOR) 100 mg tabletIndicati ons:Cardiomyop athy, unspecified type (HCC) TAKE 1 TABLET TWICE A DAY 180 tablet 3 12/26/19 25 Active spironolactone (ALDACTONE) 25 mg tablet TAKE 1 TABLET DAILY 90 tablet 1 03/16/20 25 Active sacubitriL-blanca sartan (Entresto) 97-103 mg tablet TAKE 1 TABLET TWICE A DAY 180 tablet 1 03/16/20 25 Active ticagrelor (Brilinta) 60 mg tabletIndicati ons:Coronary artery disease involving [place] coronary artery of [place] tribe heart without angina pectoris,Hx of CABG,S/P drug eluting coronary stent placement TAKE 1 TABLET TWICE A DAY 180 tablet 1 03/16/20 25 Active rosuvastatin (CRESTOR) 40 mg tablet TAKE 1 TABLET DAILY 90 tablet 1 03/16/20 25 Active Entresto 97-103 mg tablet TAKE 1 TABLET TWICE A DAY 180 tablet 3 03/03/20 24 025 Discontinued rosuvastatin (CRESTOR) 40 mg tablet TAKE 1 TABLET DAILY 90 tablet 2 04/14/20 24 025 Discontinued spironolactone (ALDACTONE) 25 mg tablet TAKE 1 TABLET DAILY 90 tablet 1 09/08/20 24 025 Discontinued ticagrelor (Brilinta) 60 mg tabletIndicati ons:Coronary artery disease involving little shell tribe coronary artery of little shell tribe heart without angina pectoris,Hx of CABG,S/P drug eluting coronary stent placement TAKE 1 TABLET TWICE A DAY 180 tablet 1 10/02/19 25 025 Discontinued Active Problems Problem Noted Date Diagnosed Date Tobacco use 11/07/2022 Morbid (severe) obesity due to excess calories 0 05/03/2022 Hyperlipidemia associated with type 2 diabetes m ellitus 10/26/2021 Diabetes mellitus type II, non insulin dependent 11/02/2020 Dilated cardiomyopathy 09/17/2018 Former smoker 09/17/2018 Coronary artery disease invo lving little shell tribe coronary artery of little shell tribe heart without angina pectoris 08/20/2018 Overview (08/20/2018): Added automatically from request for surgery [id number] Hx of CABG 08/20/2018 Overview (08/20/2018): Added automatically from request for surgery [id number] ICD (implantable cardioverter-defibrillator) in place 06/21/2018 Overview (02/06/2019): [facility] [place] Single ICD. Dx; ICM. Gen Change 02/06/2019, chronic lead 01/23/2012. [employer] remote monitoring Q3 mo, office device checks [...] (08/20/2018): Added automatically from request for surgery [id number] Obesity (BMI 30.0-34.9) 06/21/201809/10 Smoker 06/23/2016 09/23/2019 Overview (12/14/2016): Smoker Supraventricular tachycardia 12/31/2015 10/13/2024 Overview (12/14/2016): Sustained SVT Postprocedural state 07/14/2013 018 Overview (12/13/2016): S/P MVR (mitral valve repair) Coronary arteriosclerosis in little shell tribe artery 07/14/2013 09/17/2018 Overview (12/15/2016): RAHUL SQUIRES History of coronary artery bypass surgery 07/14/2013 09/17/2018 Overview (12/15/2016): AORTOCORONARY BYPASS Hypotension 07/14/2013 10/13/2024 Overview (12/15/2016): Hypotension Mitral valve disease 01/20/2013 018 Overview (12/15/2016): MITRAL VALVE DISORDER Chronic ischemic heart disease 01/08/2012 06/21/2018 Overview (12/13/2016): CHR ISCHEMIC HRT DIS NOS Atherosclerosis of coronary artery 12/05/2011 06/21/2018 Encounters Date Type Department Care Team Description 03/09/2025 Telephone [facility] Cardiology [address] [place] [id number] El Mishra MD 01/20/2025 9:30 AM CDT Ancillary Procedure [facility] Cardiology [address], [place] [address] Ischemic cardiomyopathy; Paroxysmal ventricular tachycardia (HCC) from Last 3 Months Surgical History Surgery Date Site/Laterality Comments APPENDECTOMY Appendectomy CORONARY ARTERY BYPASS GRAFT MITRAL VALVE REPAIR CARDIAC DEFIBRILLATOR PLACEMENT CARDIAC VALVE REPLACEMENT 09/10/2009 - 10/10/2009 Medical History Medical History Date Comments Valvular disease 2012 Coronary artery disease 2011 CABG Hyperlipidemia Ischemic [...] on file Legal Sex Male 9:49 AM COLLAR SETTER Gender Identity Not on file Sexual Orientation Not on file Obstetrics History Last Filed Vital Signs Vital Sign Reading Time Taken Comments Blood Pressure 120/64 10/13/2024 1:39 PM COLLAR SETTER Pulse 72 10/13/2024 1:39 PM COLLAR SETTER Temperature 36.2 C (97.1 F) 12/02/2020 1:48 PM CDT Respiratory Rate 16 09/23/2019 3:31 PM COLLAR SETTER Oxygen Saturation 92% 10/13/2024 1:39 PM COLLAR SETTER Inhaled Oxygen Concentration - - Weight 119.3 kg (263 lb) 10/13/2024 1:39 PM COLLAR SETTER Height 180.3 cm (5' 11) 10/13/2024 1:39 PM COLLAR SETTER Body Mass Index 36.68 10/13/2024 1:39 PM COLLAR SETTER Plan of Treatment Health Maintenance Due Date [...] 10/12, 10/19/2021, Additional history exists Influenza Vaccine (#1) 2025 Medical Devices Implanted Type Area Slot Supervisor Device Identifier Shelf Expiration Date Model / Serial / Lot Icd ICD Left: Chest [employer] X [id number] Resolute [place] 4mm 2.1-2.7fr 18mm 140cm Rapid Exchange Radiopaque - [id number] Implanted:Qty: 1 on 08/29/2018 by Antonio Mejia MD at [facility] Stent [employer] X 05/08/2020 [id number] / / [id number] [employer] X [id number] Resolute Nitish 4.5mm 2.1-2.7fr 18mm 140cm Rapid Exchange - [id number] Implanted:Qty: 1 on 08/29/2018 by Antonio Mejia MD at [facility] Stent [employer] X 02/19/2020 [id number] / / [id number] [employer] X [id number] Resolute Nitish 5mm 2.1-2.7fr 18mm 140cm Rapid Exchange Radiopaque - [id number] Implanted:Qty: 1 on 08/29/2018 by Antonio Mejia MD at [facility] Stent [employer] X 07/11/2020 [id number] / / [id number] [employer]ig [employer] [id number] Angio-Seal Vip Bondek-Plus 6fr .035in 70cm Hemostatic Latex Free - [id number] Implanted:Qty: 1 on 08/29/2018 by Antonio Mejia MD at [facility] [employer] 06/09/2019 [id number] / / [id number] [employer] [id number] Angio-Seal Vip Bondek-Plus 8fr .038in 70cm Hemostatic Latex Free - [id number] Implanted:Qty: 1 on 08/29/2018 by Antonio Mejia MD at [facility] [employer] 11/07/2018 [id number] / / [id number] Procedures Procedure Name Priority Date/Time Associated Diagnosis [...] - EXTERNAL LAB SCRIBED eGFR in NonAfrican Surinamese >60 - - >60 EXTERNAL LAB Blood 02/27/2023 us Asha Lowery MD LAB BLOOD ORDERABLES Final Result EXTERNAL LAB from Last 3 Months or Most Recently Relevant to Health Maintenance Insurance [facility] CLAIMS MEDICARE [facility] Care Teams Ladies Suit Operator Relationship Specialty Start Date End Date Heri Arroyo MD [address] [facility] [address] [place] [address] PCP - General Family Medicine 10/13/24
--- OUTSIDE RECORDS SUMMARY | 2025-03-18 00:14 | XMS_ITS | Referral Summary ---
Author Organization [facility] [address] [place] [address] [address] [place] [address] Care Team Providers Care Garnett Machine Operator Helper Name Role Phone Heri Arroyo MD Primary Care Provider Encounters Date Type Department Care Team Description 03/09/2025 Telephone [facility] Cardiology [address] [place] [address] El Mishra MD 01/20/2025 9:30 AM CDT Ancillary Procedure [facility] Cardiology [address] [facility] [address] [place] [phone] Ischemic cardiomyopathy; Paroxysmal ventricular tachycardia (HCC) from Last 3 Months Allergies No [...] mouth Active Trelegy Ellipta 100-62.5-25 mcg inhaler 01/22/20 25 Active metoprolol (LOPRESSOR) 100 mg tabletIndicati [...] 60 mg tabletIndicati ons:Coronary artery disease involving [place] coronary artery of [place] heart without angina pectoris,Hx of CABG,S/P drug [...] 60 mg tabletIndicati ons:Coronary artery disease involving [place] coronary artery of [place] heart without angina pectoris,Hx of CABG,S/P drug [...] smoker 09/17/2018 Coronary artery disease invo lving [place] coronary artery of [place] heart without angina pectoris 08/20/2018 Overview (08/20/2018): Added automatically from request for surgery [id number] Hx of CABG 08/20/2018 Overview (08/20/2018): Added automatically from request for surgery [id number] ICD (implantable cardioverter-defibrillator) in place 06/21/2018 Overview [...] (08/20/2018): Added automatically from request for surgery [id number] Obesity (BMI 30.0-34.9) 06/21/201809/10 Smoker 06/23/2016 09/23/2019 Overview (12/14/2016): Smoker Supraventricular tachycardia 12/31/2015 10/13/2024 Overview (12/14/2016): Sustained SVT Postprocedural state 07/14/2013 018 Overview (12/13/2016): S/P MVR (mitral valve repair) Coronary arteriosclerosis in [place] artery 07/14/2013 09/17/2018 Overview (12/15/2016): CRNRY ATHRSCL [...] on file Legal Sex Male 9:49 AM OUTSEWER Gender Identity Not on file Sexual Orientation Not on file Last Filed Vital Signs Vital Sign Reading Time Taken Comments Blood Pressure 120/64 10/13/2024 1:39 PM OUTSEWER Pulse 72 10/13/2024 1:39 PM OUTSEWER Temperature 36.2 C (97.1 F) 12/02/2020 1:48 PM CDT Respiratory Rate 16 09/23/2019 3:31 PM OUTSEWER Oxygen Saturation 92% 10/13/2024 1:39 PM OUTSEWER Inhaled Oxygen Concentration - - Weight 119.3 kg (263 lb) 10/13/2024 1:39 PM OUTSEWER Height 180.3 cm (5' 11) 10/13/2024 1:39 PM OUTSEWER Body Mass Index 36.68 10/13/2024 1:39 PM OUTSEWER Plan of Treatment Not on file Medical Devices Implanted Type Area Psychologist Experimental Device Identifier Shelf Expiration Date Model / Serial / Lot Icd ICD Left: Chest [employer] X [id number] Resolute [place] 4mm 2.1-2.7fr 18mm 140cm Rapid Exchange Radiopaque - [id number] Implanted:Qty: 1 on 08/29/2018 by Antonio Mejia MD at [facility] Stent [employer] X 05/08/2020 [id number] / / [id number] [employer] X [id number] Resolute Nitish 4.5mm 2.1-2.7fr 18mm 140cm Rapid Exchange - [id number] Implanted:Qty: 1 on 08/29/2018 by Antonio Mejia MD at [facility] Stent [employer] X 02/19/2020 [id number] UX / / [id number] Med[employer] X [id number] Resolute [place] 5mm 2.1-2.7fr 18mm 140cm Rapid Exchange Radiopaque - [id number] Implanted:Qty: 1 on 08/29/2018 by Antonio Mejia MD at [facility] Stent [employer] X 07/11/2020 [id number] UX / / [id number] Daig [employer] [id number] Angio-Seal Vip Bondek-Plus 6fr .035in 70cm Hemostatic Latex Free - [id number] Implanted:Qty: 1 on 08/29/2018 [facility] 06/09/2019 [id number] / / [id number] [employer] [id number] Angio-Seal Vip Bondek-Plus 8fr .038in 70cm Hemostatic Latex Free - [id number] Implanted:Qty: 1 on 08/29/2018 by [facility] [employer] 11/07/2018 [id number] / / [id number] Procedures Procedure Name Priority Date/Time Associated Diagnosis [...] - EXTERNAL LAB SCRIBED eGFR in NonAfrican Moldovan >60 - - >60 EXTERNAL LAB Blood 02/27/2023 us Asha Lowery MD LAB BLOOD ORDERABLES Final Result EXTERNAL LAB from Last 3 Months or Most Recently Relevant to Health Maintenance Insurance [facility] MEDICARE [facility] [employer] Care Teams Garnett Machine Operator Helper Relationship Specialty Start Date End Date Heri Arroyo MD [address] [facility] [address] [place] [address] PCP - General Family Medicine 10/13/24
--- OUTSIDE RECORDS SUMMARY | 2025-03-18 00:14 | XMS_ITS | Encounter Summary ---
Author Organization [facility] Address [address] [facility] [address] [place] [address] Care Team Providers Care Forestry Biology Specialist Name Role Phone Alena Castro MD Primary Care Provider + Adan Guzman MD Primary Care Provider [phone] Mariajose Becerra NP Primary Care Provider [phone] Radha Hall MD Primary Care Provider Heri Arroyo MD Primary Care Provider Encounter Details Date Type Department Care Team (Late st Contact Info) Description 01/23/2017 Orders Only [facility] ProviderLillie MD [address] [place] [address] Social History Tobacco Use Types Packs/Day Years Used Date Smoking Tobacco: Light Smoker Cigarettes Last attempted t o quit: 09/10/2011 Comments:Smoking History Pac ks/day: 5 Cigarettes Alcohol Use Standard Drinks/Week Comments Yes 0 (1 standard drink = 0.6 oz pur e alcohol) Sex and Gender Information Value Date Recorded Sex Assigned at Not on file Legal Sex Male 9:49 AM SCALLOP CUTTER Gender Identity Not on file Sexual Orientation [...] on filedocumented in this encounter Care Teams Forestry Biology Specialist Relationship Specialty Start Date End Date Alena Castro MD [address] [facility] [place] [address] PCP - General 12/08/16 03/04/18 Adan Guzman MD [address] [place] [address] PCP - General Internal Medicine 03/05/18 11/01/20 Mariajose Becerra NP [address] [place] [address] PCP - General Nurse Practitioner 11/02/20 10/25/21 Radha Hall MD [address] [place] [address] PCP - General Family Medicine 10/26/21 10/12/24 Heri Arroyo MD [address] [place] [address] PCP - General Family Medicine 10/13/24 documented as of this encounter
--- OUTSIDE RECORDS SUMMARY | 2025-03-18 00:14 | XMS_ITS | Encounter Summary ---
Author Organization [facility] Address [address] [place] [address] Care Team Providers Care Lumber Inspector Name Role Phone Heri Arroyo MD Primary Care Provider Encounter Details Date Type Department Care Team (Late st Contact Info) Description 03/09/2025 Telephone [facility] Cardiology [address] [place] [address] [place] [address] [place] [address] [id number] Social History Tobacco Use Types Packs/Day Years Used Date Smoking Tobacco: Former Cigarettes Q uit: 08/20/2018 Smokeless Tobacco: Never Alcohol Use Standard Drinks/Week Comments Yes 0 (1 standard drink = 0.6 oz pur e alcohol) occassional Sex and Gender Information Value Date Recorded Sex Assigned at Not on file Legal Sex Male 9:49 AM RESPIRATORY THERAPY TECHNICIAN Gender Identity Not on file Sexual Orientation Not on file documented as of this encounter Miscellaneous Notes * Telephone Encounter - Cristiana Crockett RN - 03/09/2025 10:48 AM CDT Faxed completed clearance back. * Telephone Encounter - Lizeth Dan - 03/09/2025 10:09 AM CDT Armand Lerma would like a call back with an update on the clearance they sent for the pt thank you Contact: documented in this encounter Plan of Treatment Not on file documented as of this encounter Visit Diagnoses Not on filedocumented in this encounter Care Teams Lumber Inspector Relationship Specialty Start Date End Date Heri Arroyo MD [address] [place] [id number] PCP - General Family Medicine 10/13/24 documented as of this encounter
--- OUTSIDE RECORDS SUMMARY | 2025-03-18 00:14 | XMS_ITS | Encounter Summary ---
Author Organization [facility] Address [address] [facility] [address] [place] [address] Care Team Providers Care Floatman Name Role Phone Alena Castro MD Primary Care Provider + Alena Castro MD Primary Care Provider + Adan Guzman MD Primary Care Provider Mariajose Becerra NP Primary Care Provider [phone] Radha Hall MD Primary Care Provider Heri Arroyo MD Primary Care Provider Encounter Details Date Type Department Care Team (Late st Contact Info) Description 10/24/2016 Orders Only [facility] Provider, MD Lillie [address] [place] [address] Social History Tobacco Use Types Packs/Day Years Used Date Smoking Tobacco: Light Smoker Cigarettes Last attempted t o quit: 09/10/2011 Comments:Smoking History Pac ks/day: 5 Cigarettes Alcohol Use Standard Drinks/Week Comments Yes 0 (1 standard drink = 0.6 oz pur e alcohol) Sex and Gender Information Value Date Recorded Sex Assigned at Not on file Legal Sex Male 9:49 AM TEMPLE MARKER Gender Identity Not on file Sexual Orientation [...] on filedocumented in this encounter Care Teams Floatman Relationship Specialty Start Date End Date Alena Castro MD [address] [place] [address] PCP - General 12/08/16 03/04/18 Alena Castro MD [address] [place] [address] PCP - General 03/04/12 12/07/16 Adan Guzman MD [address] [facility] [address] [place] [address] PCP - General Internal Medicine 03/05/18 11/01/20 Mariajose Becerra NP [address] [facility] [address] [place] [address] PCP - General Nurse Practitioner 11/02/20 10/25/21 Radha Hall MD [address] [place] [address] PCP - General Family Medicine 10/26/21 10/12/24 Heri Arroyo MD [address] [place] [address] PCP - General Family Medicine 10/13/24 documented as of this encounter
[2025-03-18 07:18] VITALS: BP 109/72; PULSE 74; RESP 18; TEMP 36.1; O2SAT 96; BMI 35.9
[2025-03-18] MEDS: GENTAMICIN 80MG/SOD CHL 50 ML 80 MG/50 ML BAG 100 MG IVPB (07:29)
[2025-03-18] MEDS: LACTATED RINGERS 1,000 ML 150 ML IV CONT (07:31)
[2025-03-18] MEDS: AMPICILLIN 2 GM/NS 100 ML 2 GM/100 ML BAG IVPB (08:10)
--- NOTE | 2025-03-18 08:17 | PM.HPGS ---
History of Present Illness History of Present Illness Consent: Risks, benefits, and alternatives have been discussed and questions answered. Patient agrees to proceed with procedure. Chief complaint: screening Narrative: Дмитрий Teixeira is a 54 year old male with colon polyp in 2021 Review of Systems Review of Systems: All systems reviewed & are unremarkable except as noted in HPI and below [facility] Past Medical History Medical History COVID-19 long hauler Acute serous otitis media, right ear Tobacco abuse Skin tag Restrictive lung disease Pneumonia [facility] current use of therapeutic drug Coronary artery disease involving coronary bypass graft of [place] heart COVID-19 Nasal congestion DU on CPAP Diabetes mellitus with hyperglycemia ICD (implantable cardioverter-defibrillator) in place CAD (coronary artery disease), [place] coronary artery Chronic diastolic heart failure Chronic pansinusitis Chronic systolic heart failure Diverticulosis of intestine, part unspecified, without perforation or abscess with bleeding Dyslipidemia Essential hypertension Gastroenteritis Hx of ventricular tachycardia DU (obstructive sleep apnea) Obesity (BMI 30.0-34.9) Tobacco use disorder Surgical History Surgical History H/O colonoscopy with polypectomy 2014, repeat in 5 years History of implantable cardioverter-defibrillator (ICD) placement Hx of coronary angioplasty History of heart bypass surgery X2 Family History Family History Sibling Hypertension Family history of cardiovascular disease Mother Hypertension, Onset Age: 67 Social History Social History Social History: The patient is and lives with his . She is the durable power patent attorney for healthcare. The patient has 1 daughter. The patient is currently not working and is applying for disability. The patient stated that he is down to smoking half a pack a cigarettes a day. He does not use any alcohol marijuana or illicit drugs. Code status full code Smoking packs per day: 0.5 Smoking cigarettes per day: 10.0 Years smoked: 40 Smoking pack-years: 20.00 Smoking status: Former smoker Tobacco type: cigarettes Second hand tobacco smoke exposure: No Alcohol intake: current Alcohol use details: Socially Substance use: never Substance use type: does not use Do You Feel Safe in your Home?: Yes Lack of Transportation: No Lack of Food: Never True Current Housing: I Have Housing Concerned About Future Housing: No Difficulty Paying Gas/Electric Bills: No Difficulty Paying for Meds: No Currently Unemployed: No Education: Master's Degree or Higher Difficulty w/ Childcare or Family Care: YES Living arrangements: with family Occupation/Education: unemployed Gender identity (if verbalized by the patient): Male Sexual Orientation (if Verbalized by the Patient): Straight or Heterosexual Spiritual care concerns: No Meds Home Medications and Allergies Home Medications ?Medication ?Instructions ?Recorded ?Confirmed ?Type metoprolol tartrate 100 mg tablet 100 mg PO BID 08/30/19 03/18/25 History ticagrelor 90 mg tablet (Brilinta) 60 mg PO BID 08/30/19 03/06/25 History aspirin 81 mg chewable tablet 81 mg PO DAILY 10/18/21 03/06/25 History multivitamin 1 tablet PO DAILY 10/18/21 03/06/25 History omega-3 fatty acids-vitamin E 1 cap PO BID 11/16/21 03/06/25 History 1,000 mg capsule rosuvastatin 40 mg tablet 40 mg PO DAILY 10/05/22 03/06/25 History sacubitril 24 mg-valsartan 26 mg 1 tablet PO BID 03/20/23 03/06/25 History tablet (Entresto) spironolactone 25 mg tablet 25 mg PO DAILY 03/20/23 03/06/25 History pen needle, diabetic 32 gauge x #300 ea 10/19/23 03/06/25 Rx 5/32 (BD Summer 2nd Gen Pen Needle) blood-glucose sensor (FreeStyle #6 ea 08/12/24 03/06/25 Rx Chanel 3 Sensor device) blood sugar diagnostic (FreeStyle #300 ea 10/16/24 03/06/25 Rx Lite Strips) celecoxib 50 mg capsule 50 mg PO BID #60 caps 11/21/24 03/06/25 Rx empagliflozin 10 mg tablet See Rx Instructions .Route 01/21/25 03/06/25 Rx (Jardiance) .COMPLEX #90 tabs insulin lispro 100 unit/mL See Rx Instructions .Route 02/13/25 03/18/25 Rx subcutaneous pen .COMPLEX #30 mL insulin glargine 100 unit/mL (3 40 unit (0.4 mL) subcut QHS #30 mL 02/20/25 03/06/25 Rx mL) subcutaneous pen (Lantus Solostar U-100 Insulin) Allergies Allergy/AdvReac Type Severity Reaction Status Date / Time No Known Allergies Allergy Verified 03/18/25 07:17 Vital Signs Vital Signs - 24 hr 03/18/25 07:18 Temperature 96.9 F L Pulse Rate 74 Respiratory Rate 18 Blood Pressure 109/72 Pulse Oximetry 96 Oxygen Delivery Room Air Exam Const: General: comfortable and no acute distress HENMT: Face/Nose/Sinus: Normal nares present Eyes: General: appearance normal, both eyes and all related structures Neck: Neck: no JVD Resp: Auscultation: clear to auscultation bilaterally Cardio: Rate: regular rate Rhythm: regular rhythm GI: Inspection: non-distended GI Palp: Yes Soft to palpation Skin: General skin exam: normal color Neuro: Speech: normal speech Extrem: General: normal to inspection Psych: Mental Status: mental status grossly normal Assessment and Plan Assessment and plan (1) Adenomatous colon polyp: Code(s): D12.6 - Benign neoplasm of colon, unspecified Status: Acute Assessment and Plan: colonoscopy
--- NOTE | 2025-03-18 08:19 | WPDANESEPPF ---
Anes - Initial Pre Proc Eval Procedure: Operation Date: 03/18/25 08:30 Proposed Procedures p Screening Colonoscopy - Cirilo Esposito MD Date/Time: 03/18/25 08:19 Surgeon: Cirilo Esposito MD Pre Op Diagnosis: screening Patient Data Age: 54 Gender: M Height: 1.8 m Weight: 117 kg Last Vital Signs Temp 96.9 F L 03/18/25 07:18 Pulse 74 03/18/25 07:18 Resp 18 03/18/25 07:18 BP 109/72 03/18/25 07:18 Pulse Ox 96 03/18/25 07:18 O2 Del Method Room Air 03/18/25 07:18 Allergies Allergy/AdvReac Type Severity Reaction Status Date / Time No Known Allergies Allergy Verified 03/18/25 07:17 Home Medications ?Medication ?Instructions ?Recorded ?Confirmed ?Type metoprolol tartrate 100 mg tablet 100 mg PO BID 08/30/19 03/18/25 History ticagrelor 90 mg tablet (Brilinta) 60 mg PO BID 08/30/19 03/06/25 History aspirin 81 mg chewable tablet 81 mg PO DAILY 10/18/21 03/06/25 History multivitamin 1 tablet PO DAILY 10/18/21 03/06/25 History omega-3 fatty acids-vitamin E 1 cap PO BID 11/16/21 03/06/25 History 1,000 mg capsule rosuvastatin 40 mg tablet 40 mg PO DAILY 10/05/22 03/06/25 History sacubitril 24 mg-valsartan 26 mg 1 tablet PO BID 03/20/23 03/06/25 History tablet (Entresto) spironolactone 25 mg tablet 25 mg PO DAILY 03/20/23 03/06/25 History pen needle, diabetic 32 gauge x #300 ea 10/19/23 03/06/25 Rx 5/32 (BD Summer 2nd Gen Pen Needle) blood-glucose sensor (FreeStyle #6 ea 08/12/24 03/06/25 Rx Chanel 3 Sensor device) blood sugar diagnostic (FreeStyle #300 ea 10/16/24 03/06/25 Rx Lite Strips) celecoxib 50 mg capsule 50 mg PO BID #60 caps 11/21/24 03/06/25 Rx empagliflozin 10 mg tablet See Rx Instructions .Route 05/14/25 06/27/25 Rx (Jardiance) .COMPLEX #90 tabs insulin lispro 100 unit/mL See Rx Instructions .Route 02/13/25 03/18/25 Rx subcutaneous pen .COMPLEX #30 mL insulin glargine 100 unit/mL (3 40 unit (0.4 mL) subcut QHS #30 mL 02/20/25 03/06/25 Rx mL) subcutaneous pen (Lantus Solostar U-100 Insulin) Laboratory Tests 03/18/25 07:30 POC Capillary Glucose 145 H mg/dl (65-105) Patient hx anesthesia problems: none Family hx anesthesia problems: none Results Review: All pre-operative results and documents have been reviewed as part of the pre-operative evaluation. 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 Coronary artery disease involving coronary bypass graft of [place] heart COVID-19 Nasal congestion DU on CPAP Diabetes mellitus with hyperglycemia ICD (implantable cardioverter-defibrillator) in place CAD (coronary artery disease), [place] coronary artery Chronic diastolic heart failure Chronic pansinusitis Chronic systolic heart failure Diverticulosis of intestine, part unspecified, without perforation or abscess with bleeding Dyslipidemia Essential hypertension Gastroenteritis Hx of ventricular tachycardia DU (obstructive sleep apnea) Obesity (BMI 30.0-34.9) Tobacco use disorder Surgical History Surgical History H/O colonoscopy with polypectomy 2014, repeat in 5 years History of implantable cardioverter-defibrillator (ICD) placement Hx of coronary angioplasty History of heart bypass surgery X2 Family History Family History Sibling Hypertension Family history of cardiovascular disease Mother Hypertension, Onset Age: 67 Social History Social History Social History: The patient is and lives with his . She is the durable power workers compensation attorney for healthcare. The patient has 1 daughter. The patient is currently not working and is applying for disability. The patient stated that he is down to smoking half a pack a cigarettes a day. He does not use any alcohol marijuana or illicit drugs. Code status full code Smoking packs per day: 0.5 Smoking cigarettes per day: 10.0 Years smoked: 40 Smoking pack-years: 20.00 Smoking status: Former smoker Tobacco type: cigarettes Second hand tobacco smoke exposure: No Alcohol intake: current Alcohol use details: Socially Substance use: never Substance use type: does not use Do You Feel Safe in your Home?: Yes Lack of Transportation: No Lack of Food: Never True Current Housing: I Have Housing Concerned About Future Housing: No Difficulty Paying Gas/Electric Bills: No Difficulty Paying for Meds: No Currently Unemployed: No Education: Master's Degree or Higher Difficulty w/ Childcare or Family Care: YES Living arrangements: with family Occupation/Education: unemployed Gender identity (if verbalized by the patient): Male Sexual Orientation (if Verbalized by the Patient): Straight or Heterosexual Spiritual care concerns: No Anes - Eval Final PreProcedure Day of Procedure 03/18/25 08:19 Patient weight: obese Lungs: normal air movement Airway: Mallampati scale class III and special considerations (Upper incisor w chips noted. ) Neurological: alert and oriented Last oral intake: >/= 8 hours ASA classification: IV Emergent: no Anesthetic plan: proceed Anesthesia type and monitoring: general GIVS and standard monitoring Results Review: All pre-operative results and documents have been reviewed as part of the pre-operative evaluation. Cardio note reviewed. Hx of AICD/pacemaker, heart failure w impella support, no shock since approx 2018, now w improved LVEF, DU noncompliant w CPAP. Informed Consent: The patient's anesthetic plan and its attendant risks and benefits were discussed with the patient/family/POA. Questions were solicited and answers provided to the satisfaction of the patient/family/POA.
--- NOTE | 2025-03-18 08:28 | S_PTH ---
PATIENT: Дмитрий Teixeira LOC: [facility] Bermgan#:[id number] AGE/SX: 54/M ROOM: RE03/18/[address]: Cirilo Esposito MD : 1970 BED: DIS: 03/18/2025 SPEC #: [id number] RECD: 03/18/25 10:11 STATUS: LEANA REQ #: [id number] BARB: 03/18/25 08:[address]: Cirilo Esposito DEPT: [facility] Surgical RECD BY: Catherine Rahman ENTERED: 03/18/25 10:11 SP TYPE: Surgical OTHR DR: Heri Arroyo MD Tissues: A - Colon Polypectomy Procedures: Hematoxylin and Eosin Stain Gross and Microscopic Level 4
[2025-03-18 08:30] VITALS: BP 84/48; PULSE 76; RESP 19; O2SAT 95
[2025-03-18 08:40] VITALS: BP 96/61; PULSE 66; RESP 16; O2SAT 91
[2025-03-18 08:50] VITALS: BP 100/58; PULSE 66; RESP 19; O2SAT 95
== END 2025-03-18 08:59 | disposition home or self-care (01) ==
PROVIDERS: PCP Family Medicine; Referring Provider Internal Medicine Gastroenterology; Visit Provider Internal Medicine Gastroenterology
PROC: 0DJD8ZZ Inspection of Lower Intestinal Tract, Via Natural or Artificial Opening Endoscopic (ICD-10-PCS; CPT 45378; principal; 2025-03-18 08:30)
DX: Z12.11 Encounter for screening for malignant neoplasm of colon (principal); D12.0 Benign neoplasm of cecum; K64.8 Other hemorrhoids; K57.30 Diverticulosis of large intestine without perforation or abscess without bleeding; E78.5 Hyperlipidemia, unspecified; E11.65 Type 2 diabetes mellitus with hyperglycemia; I11.0 Hypertensive heart disease with heart failure; I50.32 Chronic diastolic (congestive) heart failure; I25.10 Atherosclerotic heart disease of native coronary artery without angina pectoris; J98.4 Other disorders of lung; G47.33 Obstructive sleep apnea (adult) (pediatric); J32.4 Chronic pansinusitis; F17.210 Nicotine dependence, cigarettes, uncomplicated; E66.9 Obesity, unspecified; Z68.36 Body mass index [BMI] 36.0-36.9, adult; Z79.02 Long term (current) use of antithrombotics/antiplatelets; Z79.82 Long term (current) use of aspirin; Z79.1 Long term (current) use of non-steroidal anti-inflammatories (NSAID); Z79.84 Long term (current) use of oral hypoglycemic drugs; Z79.4 Long term (current) use of insulin; Z79.899 Other long term (current) drug therapy; Z99.89 Dependence on other enabling machines and devices; Z95.1 Presence of aortocoronary bypass graft; Z95.810 Presence of automatic (implantable) cardiac defibrillator; Z87.19 Personal history of other diseases of the digestive system; Z82.49 Family history of ischemic heart disease and other diseases of the circulatory system
CPT/HCPCS: 45385; 82948; 88305; J0290; J1580; J2704; J7120

== ENCOUNTER 2025-03-31 11:10 | Outpatient (CLI) | payer MEDICARE, OTHER, SELFPAY ==
--- OUTSIDE RECORDS SUMMARY | 2025-03-31 11:14 | XMS_ITS | Encounter Summary ---
Author Organization [facility] Address [address] [facility] [address] [place] [address] Care Team Providers Care Gravure Printing Machinist Name Role Phone Alena Castro MD Primary Care Provider + Alena Castro MD Primary Care Provider + Adan Guzman MD Primary Care Provider [phone] Mariajose Becerra NP Primary Care Provider [phone] Radha Hall MD Primary Care Provider Heri Arroyo MD Primary Care Provider Encounter Details Date Type Department Care Team (Late st Contact Info) Description 10/24/2016 Orders Only [facility] Provider, MD Lillie [address] [place] [address] Social History Tobacco Use Types Packs/Day Years Used Date Smoking Tobacco: Light Smoker Cigarettes Last attempted t o quit: 09/10/2011 Comments:Smoking History Pac ks/day: 5 Cigarettes Alcohol Use Standard Drinks/Week Comments Yes 0 (1 standard drink = 0.6 oz pur e alcohol) Sex and Gender Information Value Date Recorded Sex Assigned at Not on file Legal Sex Male 9:49 AM POP 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 Gender Identity Not on file Sexual Orientation [...] on filedocumented in this encounter Care Teams Gravure Printing Machinist Relationship Specialty Start Date End Date Alena Castro MD [address] [place] [address] PCP - General 12/08/16 03/04/18 Alena Castro MD [address] [place] [address] PCP - General 03/04/12 12/07/16 Adan Guzman MD [address] [facility] [address] [place] [address] PCP - General Internal Medicine 03/05/18 11/01/20 Mariajose Becerra NP [address] [facility] [address] [place] [address] PCP - General Nurse Practitioner 11/02/20 10/25/21 Radha Hall MD [address] [place] [address] PCP - General Family Medicine 10/26/21 10/12/24 Heri Arroyo MD [address] [place] [address] PCP - General Family Medicine 10/13/24 documented as of this encounter
--- OUTSIDE RECORDS SUMMARY | 2025-03-31 11:14 | XMS_ITS | Encounter Summary ---
Author Organization [facility] Address [address] [place] [address] Care Team Providers Care Esl Teacher Name Role Phone Alena Castro MD Primary Care Provider + Adan Guzman MD Primary Care Provider [phone] Mariajose Becerra NP Primary Care Provider [phone] Radha Hall MD Primary Care Provider Heri Arroyo MD Primary Care Provider Encounter Details Date Type Department Care Team (Late st Contact Info) Description 01/23/2017 Orders Only [facility] ProviderLillie MD [address] [place] [id number] Social History Tobacco Use Types Packs/Day Years Used Date Smoking Tobacco: Light Smoker Cigarettes Last attempted t o quit: 09/10/2011 Comments:Smoking History Pac ks/day: 5 Cigarettes Alcohol Use Standard Drinks/Week Comments Yes 0 (1 standard drink = 0.6 oz pur e alcohol) Sex and Gender Information Value Date Recorded Sex Assigned at Not on file Legal Sex Male 9:49 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 HAND Gender Identity Not on file Sexual Orientation [...] on filedocumented in this encounter Care Teams Esl Teacher Relationship Specialty Start Date End Date Alena Castro MD [address] [facility] [place] [address] PCP - General 12/08/16 03/04/18 Adan Guzman MD [address] [place] [address] PCP - General Internal Medicine 03/05/18 11/01/20 Mariajose Becerra NP [address] [place] [address] PCP - General Nurse Practitioner 11/02/20 10/25/21 Radha Hall MD [address] [place] [address] PCP - General Family Medicine 10/26/21 10/12/24 Heri Arroyo MD [address] [place] [address] PCP - General Family Medicine 10/13/24 documented as of this encounter
--- OUTSIDE RECORDS SUMMARY | 2025-03-31 11:14 | XMS_ITS | Referral Summary ---
Author Organization [facility] [address] [place] [address] [address] [place] [address] Care Team Providers Care Poultry Trimmer Name Role Phone Heri Arroyo MD Primary Care Provider Encounters Date Type Department Care Team Description 03/09/2025 Telephone [facility] Cardiology [address] [place] [address] El Mishra MD 01/20/2025 9:30 AM CDT Ancillary Procedure [facility] Cardiology [address] [facility] [address] [place] [phone] ICD (implantable cardioverter-defibri llator) in place (Primary Dx); Ischemic cardiomyopathy; Paroxysmal ventricular tachycardia (HCC) from [...] 60 mg tabletIndicati ons:Coronary artery disease involving morongo coronary artery of morongo heart without angina pectoris,Hx of CABG,S/P drug [...] 60 mg tabletIndicati ons:Coronary artery disease involving morongo coronary artery of morongo heart without angina pectoris,Hx of CABG,S/P drug [...] smoker 09/17/2018 Coronary artery disease invo lving morongo coronary artery of morongo heart without angina pectoris 08/20/2018 Overview (08/20/2018): Added automatically from request for surgery [id number] Hx of CABG 08/20/2018 Overview (08/20/2018): Added automatically from request for surgery [id number] ICD (implantable cardioverter-defibrillator) in place 06/21/2018 Overview (02/06/2019): [facility] Single ICD. Dx; ICM. Gen Change 02/06/2019, chronic lead 01/23/2012. [place] remote monitoring Q3 mo, office device checks [...] (08/20/2018): Added automatically from request for surgery [id number] Obesity (BMI 30.0-34.9) 06/21/201809/10 Smoker 06/23/2016 09/23/2019 Overview (12/14/2016): Smoker Supraventricular tachycardia 12/31/2015 10/13/2024 Overview (12/14/2016): Sustained SVT Postprocedural state 07/14/2013 018 Overview (12/13/2016): S/P MVR (mitral valve repair) Coronary arteriosclerosis in morongo artery 07/14/2013 09/17/2018 Overview (12/15/2016): CRNRY ATHRSCL [...] on file Legal Sex Male 9:49 AM SPORTS BROADCASTER Gender Identity Not on file Sexual Orientation Not on file Last Filed Vital Signs Vital Sign Reading Time Taken Comments Blood Pressure 120/64 10/13/2024 1:39 PM SPORTS BROADCASTER Pulse 72 10/13/2024 1:39 PM SPORTS BROADCASTER Temperature 36.2 C (97.1 F) 12/02/2020 1:48 PM CDT Respiratory Rate 16 09/23/2019 3:31 PM SPORTS BROADCASTER Oxygen Saturation 92% 10/13/2024 1:39 PM SPORTS BROADCA[employer] Inhaled Oxygen Concentration - - Weight 119.3 kg (263 lb) 10/13/2024 1:39 PM SPORTS BROADCASTER Height 180.3 cm (5' 11) 10/13/2024 1:39 PM SPORTS BROADCASTER Body Mass Index 36.68 10/13/2024 1:39 PM SPORTS BROADCASTER Plan of Treatment Not on file Medical Devices Implanted Type Area Tankroom Tender Device Identifier Shelf Expiration Date Model / Serial / Lot Icd ICD Left: Chest Med[employer] X [id number] Resolute Nitish 4mm 2.1-2.7fr 18mm 140cm Rapid Exchange Radiopaque - [id number] Implanted:Qty: 1 on 08/29/2018 by Antonio Mejia MD at [facility] Stent [employer] X 05/08/2020 [id number] / / [id number] Med[employer] X [id number] Resolute Nitish 4.5mm 2.1-2.7fr 18mm 140cm Rapid Exchange - [id number] Implanted:Qty: 1 on 08/29/2018 by Antonio Mejia MD at [facility] Stent [employer] X 02/19/2020 [id number] UX / / [id number] [employer] X [id number] Resolute [place] 5mm 2.1-2.7fr 18mm 140cm Rapid Exchange Radiopaque - [id number] Implanted:Qty: 1 on 08/29/2018 by Antonio Mejia MD at [facility] Stent [employer] X 07/11/2020 [id number] / / [id number] Daig Katie/[employer] [id number] Angio-Seal Vip Bondek-Plus 6fr .035in 70cm Hemostatic Latex Free - [id number] Implanted:Qty: 1 on 08/29/2018 by Antonio Mejia MD at [facility] Daig Katie[employer] 06/09/2019 [id number] / / [id number] Daig Katie[employer] [id number] Angio-Seal Vip Bondek-Plus 8fr .038in 70cm Hemostatic Latex Free - [id number] Implanted:Qty: 1 on 08/29/2018 by Antonio Mejia MD at [facility] 11/07/2018 [id number] / / [id number] Procedures Procedure Name Priority Date/Time Associated Diagnosis [...] - EXTERNAL LAB SCRIBED eGFR in NonAfrican [place] Zealander >60 - - >60 EXTERNAL LAB Blood 02/27/2023 us Asha Lowery MD LAB BLOOD ORDERABLES Final Result EXTERNAL LAB from Last 3 Months or Most Recently Relevant to Health Maintenance Insurance [facility] MEDICARE [employer] Care Teams Poultry Trimmer Relationship Specialty Start Date End Date Heri Arroyo MD [address] [facility] [address] [place] [address] PCP - General Family Medicine 10/13/24
--- OUTSIDE RECORDS SUMMARY | 2025-03-31 11:14 | XMS_ITS | Clinical Summary ---
Author Organization [facility] [address] Address [address] [place] [address] Care Team Providers Care Glove Cutter Name Role Phone Heri Arroyo MD Primary [...] 60 mg tabletIndicati ons:Coronary artery disease involving viejas coronary artery of viejas heart without angina pectoris,Hx of CABG,S/P drug [...] 60 mg tabletIndicati ons:Coronary artery disease involving viejas coronary artery of viejas heart without angina pectoris,Hx of CABG,S/P drug [...] smoker 09/17/2018 Coronary artery disease invo lving viejas coronary artery of viejas heart without angina pectoris 08/20/2018 Overview (08/20/2018): Added automatically from request for surgery [id number] Hx of CABG 08/20/2018 Overview (08/20/2018): Added automatically from request for surgery [id number] ICD (implantable cardioverter-defibrillator) in place 06/21/2018 Overview [...] (08/20/2018): Added automatically from request for surgery [id number] Obesity (BMI 30.0-34.9) 06/21/201809/10 Smoker 06/23/2016 09/23/2019 Overview (12/14/2016): Smoker Supraventricular tachycardia 12/31/2015 10/13/2024 Overview (12/14/2016): Sustained SVT Postprocedural state 07/14/2013 018 Overview (12/13/2016): S/P MVR (mitral valve repair) Coronary arteriosclerosis in viejas artery 07/14/2013 09/17/2018 Overview (12/15/2016): RAHUL SQUIRES History of coronary artery bypass surgery 07/14/2013 09/17/2018 Overview (12/15/2016): AORTOCORONARY BYPASS Hypotension 07/14/2013 10/13/2024 Overview (12/15/2016): Hypotension Mitral valve disease 01/20/2013 018 Overview (12/15/2016): MITRAL VALVE DISORDER Chronic ischemic heart disease 01/08/2012 06/21/2018 Overview (12/13/2016): CHR ISCHEMIC HRT DIS NOS Atherosclerosis of coronary artery 12/05/2011 06/21/2018 Encounters Date Type Department Care Team Description 03/09/2025 Telephone [facility] Cardiology [address] [facility] [address] [place] [phone] El Mishra MD 01/20/2025 9:30 AM CDT Ancillary Procedure [facility] Medical [facility] Cardiology [address] [facility] [address], [place] [address] ICD (implantable cardioverter-defibri llator) in place [...] on file Legal Sex Male 9:49 AM NYLON OPERATOR Gender Identity Not on file Sexual Orientation Not on file Obstetrics History Last Filed Vital Signs Vital Sign Reading Time Taken Comments Blood Pressure 120/64 10/13/2024 1:39 PM NYLON OPERATOR Pulse 72 10/13/2024 1:39 PM NYLON OPERATOR Temperature 36.2 C (97.1 F) 12/02/2020 1:48 PM CDT Respiratory Rate 16 09/23/2019 3:31 PM NYLON OPERATOR Oxygen Saturation 92% 10/13/2024 1:39 PM NYLON OPERATOR Inhaled Oxygen Concentration - - Weight 119.3 kg (263 lb) 10/13/2024 1:39 PM NYLON OPERATOR Height 180.3 cm (5' 11) 10/13/2024 1:39 PM NYLON OPERATOR Body Mass Index 36.68 10/13/2024 1:39 PM NYLON OPERATOR Plan of Treatment Health Maintenance Due Date [...] (#1) 2025 Medical Devices Implanted Type Area Clam Dredger Device Identifier Shelf Expiration Date Model / Serial / Lot Icd ICD Left: Chest [employer] X [id number] Resolute [place] 4mm 2.1-2.7fr 18mm 140cm Rapid Exchange Radiopaque - [id number] Implanted:Qty: 1 on 08/29/2018 by Antonio Mejia MD at [facility] Stent [employer] X 05/08/2020 [id number] / / [id number] Med[employer] X [id number] Resolute Nitish 4.5mm 2.1-2.7fr 18mm 140cm Rapid Exchange - [id number] Implanted:Qty: 1 on 08/29/2018 by Antonio Mejia MD at [facility] Stent [employer] X 02/19/2020 [id number] / / [id number] [employer] X [id number] Resolute Nitish 5mm 2.1-2.7fr 18mm 140cm Rapid Exchange Radiopaque - [id number] Implanted:Qty: 1 on 08/29/2018 by Antonio Mejia MD at [facility] Stent [employer] X 07/11/2020 [id number] / / [id number] Daig Katie[employer] [id number] Angio-Seal Vip Bondek-Plus 6fr .035in 70cm Hemostatic Latex Free - [id number] Implanted:Qty: 1 on 08/29/[facility] 06/09/2019 [id number] / / [id number] Daig Katie[employer] [id number] Angio-Seal Vip Bondek-Plus 8fr .038in 70cm Hemostatic Latex Free - [id number] Implanted:Qty: 1 on 08/29/2018 [facility] 11/07/2018 [id number] / / [id number] Procedures Procedure Name Priority Date/Time Associated Diagnosis [...] * (ABNORMAL) Basic metabolic panel (02/27/2023) Pathologist [facility] SCRIBED Sodium 138 137 - 145 mmol/L [...] - EXTERNAL LAB SCRIBED eGFR in NonAfrican [place] Islander >60 - - >60 EXTERNAL LAB Blood 02/27/2023 Asha Lowery MD LAB BLOOD ORDERABLES Final Result EXTERNAL LAB from Last 3 Months or Most Recently Relevant to Health Maintenance Insurance [facility] CLAIM[facility] MEDICARE [facility] Care Teams Glove Cutter Relationship Specialty Start Date End Date Heri Arroyo MD [address] [place] [address] PCP - General Family Medicine 10/13/24
--- OUTSIDE RECORDS SUMMARY | 2025-03-31 11:14 | XMS_ITS | Continuity of Care Document ---
Author Name [facility] Organization [facility] Care Team Providers Care Dietary Internship Name Role Phone [facility] Unavailable Unavailable Problems Combined list of problems from Department of Defense and Veterans Affairs facilities. It does not include entries that were removed or entered in error. Problem Status Onset Date Problem Type Date of Resolution Comments Source visit for: services physical Inactive Condition DoD visit for: issue medical certificate Inactive Condition PRT Waiver accomplished DoD abdominal pain Inactive Condition [facility] visit for: administrative purpose Inactive Condition [facility] visit for: postsurgical exam Inactive Condition [facility] SORE THROAT ACUTE Inactive Condition NO N-SPECIFIC SORETHROAT. PROBABLE RELATED TO ALLERGIES VS. GERD. NO SIGNS OF INFECTION. D/C TOBACCO. PUSH ORAL FLUIDS. [facility] NICOTINE DEPENDENCE Active Condition [facility] COMPRESSION ARTHRALGIA - HAND Active Condition [facility] limb pain Inactive Condition [facility] NONSPECIFIC ABNORMAL FINDINGS Active Condition [facility] Patient Education Active Condition [facility] visit for: occupational health / fitness exam Inactive Condition [facility] visit for: ears, nose, and throat exam Inactive Condition DoD MUSCLE SPASM Active Condition DoD NONSPECIFIC ABNORMAL FINDINGS Active Condition lump in ri ght side of chest [id number] to GI for f/u. F/u with PCM after GI evaluation [facility] PHARYNGITIS Inactive Condition [facility] ASSESS PATIENT CONDITION WORK-RELATED OCCUPATIONAL DISEASE Inactive Condition [facility] Medications Combined list of outpatient medications from Department of Defense and Veterans Affairs facilities.Medications provided include 1) outpatient medications from the last 15 months, and 2) patient-reported medications. Medication Details Route Status Patient Instructions Prescription Expires Prescription Number Last Dispense Date Ordering Provider Order Date Order Qty Source BRILINTA (ticagrelor ), 60 MG, TABLET, ORAL, ASTRAZENECA , 60 ea. BOTTLE Active [id number] 4 2023 180 Pharmac y Data Transac tion Service Facilit y ENTRESTO (sacubitril /valsartan) , 97MG-103MG, TABLET, ORAL, NOVARTIS, 60 ea. BOTTLE Active [id number] 4 2023 180 Pharmac y Data Transac tion Service Facilit y FREESTYLE ADAMA 3 SENSOR (flash glucose sensor), KIT, MISCELL, ORR DIABETES, 1 ea. KIT Active [id number] 4 2023 6 Pharmac y Data Transac tion Service Facilit y INSULIN LISPRO KWIKPEN U-100 (insulin lispro), 100/ML, INSULN PEN, SUBCUT, MARIA [employer] 3 ml SYRINGE Active [id number] 4 2023 30 Pharmac y Data Transac tion Service Facilit y JARDIANCE (EMPAGLIFLO ZIN), 10 MG, TABLET, ORAL, BOEHRINGER ING., 30 ea. BOTTLE Cancele d [id number] : 2023 0 Pharmac y Data Transac tion Service Facilit y JARDIANCE (EMPAGLIFLO ZIN), 10 MG, TABLET, ORAL, BOEHRINGER ING., 90 ea. BOTTLE Active [id number] 4 2023 90 Pharmac y Data Transac tion Service Facilit y LANTUS SOLOSTAR (INSULIN GLARGINE,DANDRE M.REC.ANLOG ), 100/ML (3), INSULN PEN, SUB-Q, SANOFI-AVEN TIS, 3 ml SYRINGE Active [id number] 4 2023 30 Pharmac y Data Transac tion Service Facilit y METOPROLOL TARTRATE (metoprolol tartrate), 100 MG, TABLET, ORAL, [employer] 1000 ea. BOTTLE Active [id number] 4 2023 180 Pharmac y Data Transac tion Service Facilit y Allergies, Adverse Reactions, Alerts Combined list of allergies from Department of Defense and Veterans Affairs facilities. It does not include entries that were removed or entered in error. Substance Category Reaction Severity Reaction type Status Date Reported Comments Source No Known Allergies Drug allergy (disorder) active 06/05/2006 [facility] Immunizations Combined list of available immunizations from the Department of Defense and Veterans Affairs facilities. 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 Source influenza virus vaccine,split 2004 [id number] Unknown complet ed influenza virus vaccine,s plit 07/31/05 Given Ambulat ory Pharmac y typhoid vaccine, inactivated 2003 UNKNOWN 101 Unknown complet ed typhoid vaccine, inactivat ed 10/16/03 Given Ambulat ory Pharmac y hepatitis [...] ADM Date DC Date Status Disposition Source [place]) OUTPATIENT [id number] HORACE Cali 08/23 Released w/o Limitations [place] [place] OUTPATIENT [id number] SORE THROAT FULWADHVA, OZ P 09/29 Released w/o Limitations [place]) [place] OUTPATIENT [id number] F/U LUMP ON CHEST FULWADHVA, OZ P 10/05 [place]ased w/o Limitations [place]) [place] OUTPATIENT [id number] upper back spasms, denies trauma JEREMIAH WORRELL 11/28 Sick at Home/Quarter s [place] [facility]) OUTPATIENT [id number] hearing conserv ation NA JACKSON 04/11 Released w/o Limitations [facility] [place] OUTPATIENT [id number] LUMP IN CHEST GONSALES, SRAVAN A 04/12 Released w/o Limitations [facility] [place]) OUTPATIENT [id number] F/U XRAY GONSALES, SRAVAN A 04/13 Released w/o Limitations [facility] [place] [facility] OUTPATIENT [id number] SORETHR MERARY HANSEN 05/02 Released w/o Limitations [facility] [place] OUTPATIENT [id number] ACUTE ABDOMIN AL PAIN GONSALES, SRAVAN A 05/10 Released with Work/Duty Limitations [facility] [place] [place]) OUTPATIENT [id number] f/u er GONSALES, SRAVAN A 05/15 Sick at Home/Quarter s [facility] [place] [place] OUTPATIENT [id number] PRT SCREENI JEREMIAH DAVENPORT 06/05 Released with Work/Duty Limitations [facility] [place] [place] OUTPATIENT [id number] retirem MAUDE Ojeda 06/12 Released w/o Limitations [place]) Procedures Combined list of: 1) Procedures from Department of Veterans Affairs facilities [facility], not all VA non-surgical procedures are included; 2) All procedures from the Department of Defense facilities. Procedure Procedure Type Code Date Perfomer Comments Sourc e No data available for this section Ambulato ry Pharmacy UNLISTED DIAGNOSTIC RADIOGRAPHIC PROCEDURE 2 DoD PREPARATION [...] THAN OF A MULTIPLE-FAMILY GROUP) 0 DoD OTHER INDIVIDUAL PSYCHOTHERAPY 0 DoD OTHER GROUP THERAPY 03/21/20 0 0 DoD DRUG ADDICTION COUNSELLING 0 DoD ALCOHOLISM COUNSELLING 0 DoD OTHER COUNSELLING 0 DoD REFERRAL FOR PSYCHOTHERAPY 0 DoD REFERRAL FOR PSYCHIATRIC AFTERCARE 0 DoD ALCOHOL DETOXIFICATION 0 DoD SUPPORTIVE VERBAL PSYCHOTHERAPY 0 DoD [...] CLASSIFIED 0 DoD OCCUPATIONAL THERAPY 0 DoD GENERAL PHYSICAL EXAMINATION 0 DoD RECREATIONAL THERAPY 0 DoD INDIVIDUAL PSYCHOTHERAPY, INSIGHT ORIENTED, BEHAVIOR MODIFYING AND/OR SUPPORTIVE, IN AN OFFICE OR OUTPATIENT FACILITY, APPROXIMATELY 75 TO 80 MINUTES [id number] WITH THE PATIENT 0 DoD PURE TONE AUDIOMETRY (THRESHOLD); AIR ONLY 6 DoD COMPREHENSIVE AUDIOMETRY THRESHOLD EVALUATION AND SPEECH RECOGNITION (22619 AND 34950 COMBINED) 5 DoD PURE TONE AUDIOMETRY (THRESHOLD); AIR ONLY 4 [facility] COMPREHENSIVE AUDIOMETRY THRESHOLD EVALUATION AND SPEECH RECOGNITION (85917 AND 80997 COMBINED) 4 [facility] COMPREHENSIVE AUDIOMETRY THRESHOLD EVALUATION AND SPEECH RECOGNITION (61956 AND 52930 COMBINED) 4 [facility] SCREENING TEST OF VISUAL ACUITY, QUANTITATIVE, BILATERAL 4 [facility] COMPREHENSIVE AUDIOMETRY THRESHOLD EVALUATION AND SPEECH RECOGNITION (29090 AND 02209 COMBINED) 3 DoD FITTING OF SPECTACLES, EXCEPT FOR APHAKIA; MONOFOCAL 2 [facility] COMPREHENSIVE AUDIOMETRY THRESHOLD EVALUATION AND SPEECH RECOGNITION (49080 AND 45221 COMBINED) 2 [facility] -Supervised Services Provision Of Educational Supplies -Supervised Services Provision Of Educational Supplies [address] [facility] Threshold Audiogram (Pure Tone) Threshold Audiogram (Pure Tone) [address] [facility] Social History Combined list of available [...] Plan No data available for this section 03/31/2025 Ambulatory Pharmacy Functional Status Combined list of recent functional and cognitive assessments recorded at Department of Defense and Veterans Affairs (VA).VA Functional Beltrami Measurement (FIM) Scale: 1 = Total Assistance (Subject = 0% +), 2 = Maximal Assistance (Subject = 25% +), 3 = Moderate Assistance (Subject = 50% +), 4 = Minimal Assistance (Subject = 75% +), 5 = Supervision, 6 = Modified Beltrami (Device), 7 = Complete Beltrami (Timely, Safely). Assessment Date/Time Source Assessment Type Assessment Skill Assessment Score Assessment Details No data available for this section
[2025-03-31 11:58] LABS: Hemoglobin A1C 10.3 % (<5.7)
[2025-03-31 12:10] LABS: Alanine Aminotransferase 38 U/L (6-50); Albumin Level 4.8 g/dL (3.5-5.1); Alkaline Phosphatase 78 U/L (38-126); Anion Gap 14 mmol/L (4-12); Aspartate Amino Transferase 34 U/L (17-59); Bilirubin,Total 1.1 mg/dL (0.2-1.3); Blood Urea Nitrogen 20 mg/dL (9-20); Calcium 10.1 mg/dL (8.4-10.2); Carbon Dioxide 21 mmol/L (22-30); Chloride 104 mmol/L (98-107); Cholesterol 224 mg/dL (0-200); Estimated Glomerular Filt Rate > 60; Glucose 177 mg/dL (65-110); Potassium 4.2 mmol/L (3.4-5.0); Sodium 139 mmol/L (137-145); Total Protein 8.3 g/dL (6.3-8.2)
[2025-03-31 12:28] LABS: Triglycerides 666 mg/dL (<150)
== END 2025-03-31 11:11 | disposition home or self-care (01) ==
PROVIDERS: PCP Family Medicine; Visit Provider Student in an Organized Health Care Education/Training Program
DX: E78.5 Hyperlipidemia, unspecified (principal); E11.65 Type 2 diabetes mellitus with hyperglycemia; I10 Essential (primary) hypertension
CPT/HCPCS: 36415; 80053; 80061; 83036

== ENCOUNTER 2025-04-23 08:11 | Outpatient (CLI) | payer MEDICARE, OTHER, SELFPAY ==
--- OUTSIDE RECORDS SUMMARY | 2025-04-23 08:15 | XMS_ITS | Continuity of Care Document ---
Author Name [facility] Organization [facility] Care Team Providers Care Tools Developer Name Role Phone [facility] Unavailable Unavailable Problems Combined list of problems from Department of Defense and Veterans Affairs facilities. It does not include entries that were removed or entered in error. Problem Status Onset Date Problem Type Date of Resolution Comments Source visit for: services physical Inactive Condition DoD visit for: issue medical certificate Inactive Condition PRT Waiver accomplished DoD abdominal pain Inactive Condition [facility] visit for: administrative purpose Inactive Condition [facility] visit for: postsurgical exam Inactive Condition [facility] SORE THROAT ACUTE Inactive Condition NO N-SPECIFIC SORETHROAT. PROBABLE RELATED TO ALLERGIES VS. GERD. NO SIGNS OF INFECTION. D/C TOBACCO. PUSH ORAL FLUIDS. [facility] NICOTINE DEPENDENCE Active Condition [facility] COMPRESSION ARTHRALGIA - HAND Active Condition [facility] limb pain Inactive Condition [facility] NONSPECIFIC ABNORMAL FINDINGS Active Condition [facility] Patient Education Active Condition [facility] visit for: occupational health / fitness exam Inactive Condition [facility] visit for: ears, nose, and throat exam Inactive Condition DoD MUSCLE SPASM Active Condition [facility] NONSPECIFIC ABNORMAL FINDINGS Active Condition lump in ri ght side of chest [id number] to GI for f/u. F/u with PCM after GI evaluation [facility] PHARYNGITIS Inactive Condition [facility] ASSESS PATIENT CONDITION WORK-RELATED OCCUPATIONAL DISEASE Inactive Condition [facility] Medications Combined list of outpatient medications from Department of Defense and Veterans Affairs facilities.Medications provided include 1) outpatient medications from the last 15 months, and 2) patient-reported medications. Medication Details Route Status Patient Instructions Prescription Expires Prescription Number Last Dispense Date Ordering Provider Order Date Order Qty Source ENTRESTO (sacubitril /valsartan) , 97MG-103MG, TABLET, ORAL, NOVARTIS, 60 ea. BOTTLE Active [id number] 4 2023 180 Pharmac y Data Transac tion Service Facilit y FREESTYLE ADAMA 3 SENSOR (flash glucose sensor), KIT, MISCELL, ORR DIABETES, 1 ea. KIT Active [id number] 2023 6 Pharmac y Data Transac tion Service Facilit y JARDIANCE (EMPAGLIFLO ZIN), 10 MG, TABLET, ORAL, BOEHRINGER ING., 30 ea. BOTTLE Cancele d [id number] : 2023 0 Pharmac y Data Transac tion Service Facilit y JARDIANCE (EMPAGLIFLO ZIN), 10 MG, TABLET, ORAL, BOEHRINGER ING., 90 ea. BOTTLE Active [id number] 4 2023 90 Pharmac y Data Transac tion Service Facilit y LANTUS SOLOSTAR (INSULIN GLARGINE, M.REC.ANLOG ), 100/ML (3), INSULN PEN, SUB-Q, SANOFI-AVEN TIS, 3 ml SYRINGE Active [id number] 2023 30 Pharmac y Data Transac tion Service Facilit y Allergies, Adverse Reactions, Alerts Combined list of allergies from Department of Defense and Veterans Affairs facilities. It does not include entries that were removed or entered in error. Substance Category Reaction Severity Reaction type Status Date Reported Comments Source No Known Allergies Drug allergy (disorder) active 06/05/2006 [facility] Immunizations Combined list of available immunizations from the Department of Defense and Veterans Affairs facilities. 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 Status Comments Source influenza virus vaccine,split 2004 [id number] Unknown complet ed influenza virus vaccine,s [...] ADM Date DC Date Status Disposition Source [facility] [place]) OUTPATIENT [id number] HORACE Cali 08/23 Released w/o Limitations [place]) [place]) OUTPATIENT [id number] SORE THROAT FULWADHVA, OZ P 09/29 Released w/o Limitations [place] OUTPATIENT [id number] F/U LUMP ON CHEST FULWADHVA, OZ P 10/05 [place]ased w/o Limitations [place] OUTPATIENT [id number] upper back spasms, denies trauma JEREMIAH WORRELL 11/28 Sick at Home/Quarter [place]) [facility] [place] Hearing Conservat ion) OUTPATIENT [id number] hearing conserv ation NA JACKSON 04/11 Released w/o Limitations [place]) OUTPATIENT [id number] LUMP IN CHEST SRAVAN GONSALES 04/12 [place]ased w/o Limitations [place] OUTPATIENT [id number] F/U XRAY SRAVAN GONSALES A 04/13 [place]ased w/o Limitations [place] OUTPATIENT [id number] SORETHR MERARY HANSEN 05/02 Released w/o Limitations [place] OUTPATIENT [id number] ACUTE ABDOMIN AL PAIN DRU SRAVAN A 05/10 Released with Work/Duty Limitations [place]) [place] OUTPATIENT [id number] f/u er GONSALESMIREILLESRAVAN A 05/15 [place]ick at Home/Qu[place] OUTPATIENT [id number] PRT SCREENI JEREMIAH DAVENPORT 06/05 Released with Work/Duty Limitations [place] OUTPATIENT [id number] retirem ent MAUDE IVEY 06/12 Released w/o Limitations [place]) Procedures Combined list of: 1) [...] Supplies -Supervised Services Provision Of Educational Supplies [id number] [id number] SRAVAN GONSALES DoD Threshold Audiogram (Pure Tone) Threshold Audiogram (Pure Tone) [address] [facility] UNLISTED DIAGNOSTIC RADIOGRAPHIC PROCEDURE 2 DoD PREPARATION [...] OUTPATIENT FACILITY, APPROXIMATELY 75 TO 80 MINUTES [id number] WITH THE PATIENT 0 DoD PURE TONE AUDIOMETRY (THRESHOLD); AIR ONLY 6 DoD COMPREHENSIVE AUDIOMETRY THRESHOLD EVALUATION AND SPEECH RECOGNITION (82603 AND 77116 COMBINED) 5 DoD PURE TONE AUDIOMETRY (THRESHOLD); AIR ONLY 4 DoD COMPREHENSIVE AUDIOMETRY THRESHOLD EVALUATION AND SPEECH RECOGNITION (06927 AND 45564 COMBINED) 4 DoD COMPREHENSIVE AUDIOMETRY THRESHOLD EVALUATION AND SPEECH RECOGNITION (64161 AND 13691 COMBINED) 4 DoD SCREENING TEST OF VISUAL ACUITY, QUANTITATIVE, BILATERAL 03/24/[address] [facility] COMPREHENSIVE AUDIOMETRY THRESHOLD EVALUATION AND SPEECH RECOGNITION (49655 AND 54672 COMBINED) 3 [facility] FITTING OF SPECTACLES, EXCEPT FOR APHAKIA; MONOFOCAL 2 [facility] COMPREHENSIVE AUDIOMETRY THRESHOLD EVALUATION AND SPEECH RECOGNITION (54354 AND 41721 COMBINED) 2 [facility] Social History Combined list of available smoking, tobacco, and other social history from Department of Defense and Veterans Affairs facilities. Social History Type Response Date Comment Sourc e Sexual Orientation Ambula tory Pharmacy Gender identity Ambulator y Pharmacy Sex Representation Male (finding) Un known Organization This section is an empty soc ial history section. [facility] Assessment and Plan Combined list of future care activities from Department of Defense and Veterans Affairs facilities (e.g., assessment and plan notes, appointments, orders, and referrals). Additional future care activities may be listed in the Plan of Care section. Result Assessment and Plan Date Source Assessment and Plan No data available for this section 04/23/2025 Ambulatory Pharmacy Functional Status Combined list of recent functional and cognitive assessments recorded at Department of Defense and Veterans Affairs (VA).VA Functional Mylo Measurement (FIM) Scale: 1 = Total Assistance (Subject = 0% +), 2 = Maximal Assistance (Subject = 25% +), 3 = Moderate Assistance (Subject = 50% +), 4 = Minimal Assistance (Subject = 75% +), 5 = Supervision, 6 = Modified Mylo (Device), 7 = Complete Mylo (Timely, Safely). Assessment Date/Time Source Assessment Type Assessment Skill Assessment Score Assessment Details No data available for this section
[2025-04-23 08:51] LABS: Cholesterol 170 mg/dL (0-200); HDL Direct 32 mg/dL; Triglycerides 515 mg/dL (<150)
== END 2025-04-23 08:12 | disposition home or self-care (01) ==
PROVIDERS: PCP Family Medicine; Visit Provider Internal Medicine Cardiovascular Disease
DX: E78.2 Mixed hyperlipidemia (principal)
CPT/HCPCS: 36415; 80061

== ENCOUNTER 2025-07-01 11:12 | Outpatient (CLI) | payer MEDICARE, OTHER, SELFPAY ==
[2025-07-01 11:59] LABS: Hemoglobin A1C 8.8 % (<5.7)
[2025-07-01 12:01] LABS: Alanine Aminotransferase 50 U/L (6-50); Albumin Level 4.9 g/dL (3.5-5.1); Alkaline Phosphatase 67 U/L (38-126); Anion Gap 11 mmol/L (4-12); Aspartate Amino Transferase 46 U/L (17-59); Bilirubin,Total 1.5 mg/dL (0.2-1.3); Blood Urea Nitrogen 18 mg/dL (9-20); Calcium 9.5 mg/dL (8.4-10.2); Carbon Dioxide 23 mmol/L (22-30); Chloride 103 mmol/L (98-107); Estimated Glomerular Filt Rate > 60; Glucose 149 mg/dL (65-110); Potassium 4.8 mmol/L (3.4-5.0); Sodium 137 mmol/L (137-145); Total Protein 8.3 g/dL (6.3-8.2)
--- OUTSIDE RECORDS SUMMARY | 2025-07-01 14:23 | XMS_ITS | Clinical Summary ---
Author Organization [facility] [address] Address [address] [place] [address] Care Team Providers Care Newspaper Carriers Supervisor Name Role Phone Heri Arroyo MD Primary Care Provider Allergies No known active allergies Medications aspirin 81 mg tablet take 1 tablet (81MG) by oral route every day 0 2 Active omega-3 fatty acids-fish oil 340-1,000 mg capsule take 1 by Oral route every day 0 2 Active multivitamin tabletIndicatio ns:Vitamin Deficiency Prevention Take 1 tablet by mouth Active insulin lispro (HumaLOG, ADMELOG) 100 unit/mL insulin pen insulin lispro (U-100) 100 unit/mL subcutaneous pen Active insulin glargine (LANTUS, BASAGLAR, SEMGLEE) 100 unit/mL (3 mL) pen for injection Active Jardiance 10 mg tablet Take 1 tablet (10 mg total) by mouth daily 4 Active acidophilus-pec tin, citrus 100 million cell-10 mg capsule Take by mouth Activ e Trelegy Ellipta 100-62.5-25 mcg inhaler 5 Active metoprolol (LOPRESSOR) 100 mg tabletIndicatio ns:Cardiomyopat hy, unspecified type (HCC) TAKE 1 TABLET TWICE A DAY 180 tablet 3 5 Active spironolactone (ALDACTONE) 25 mg tablet TAKE 1 TABLET DAILY 90 tablet 1 5 Active sacubitriL-vals aramis (Entresto) 97-103 mg tablet TAKE 1 TABLET TWICE A DAY 180 tablet 1 5 Active ticagrelor (Brilinta) 60 mg tabletIndicatio ns:Coronary artery disease involving conf[place] sal[place] coronary artery of [place] heart without angina pectoris,Hx of CABG,S/P drug eluting coronary stent placement TAKE 1 TABLET TWICE A DAY 180 tablet 1 5 Active rosuvastatin (CRESTOR) 40 mg tablet TAKE 1 TABLET DAILY 90 tablet 1 5 Active fenofibrate micronized (LOFIBRA) 67 mg capsule Take 1 capsule (67 mg total) by mouth daily 5 Active Active Problems Problem Noted Date Diagnosed Date Tobacco use 11/07/2022 Morbid (severe) obesity due to excess calories 0 05/03/2022 Hyperlipidemia associated with type 2 diabetes m ellitus 10/26/2021 Diabetes mellitus type II, non insulin dependent 11/02/2020 Dilated cardiomyopathy 09/17/2018 Former smoker 09/17/2018 Coronary artery disease invo lving conf[place] coronary artery of [place] heart without angina pectoris 08/20/2018 Overview (08/20/2018): Added automatically from request for surgery [id number] Hx of CABG 08/20/2018 Overview (08/20/2018): Added automatically from request for surgery [id number] ICD (implantable cardioverter-defibrillator) in place 06/21/2018 Overview (02/06/2019): [facility] Single ICD. Dx; ICM. Gen Change 02/06/2019, chronic lead 01/23/2012. Lott remote monitoring Q3 mo, office device checks [...] (08/20/2018): Added automatically from request for surgery [id number] Obesity (BMI 30.0-34.9) 06/21/201809/10 Smoker 06/23/2016 09/23/2019 Overview (12/14/2016): Smoker Supraventricular tachycardia 12/31/2015 10/13/2024 Overview (12/14/2016): Sustained SVT Postprocedural state 07/14/2013 018 Overview (12/13/2016): S/P MVR (mitral valve repair) Coronary arteriosclerosis in confed[place] salish artery 07/14/2013 09/17/2018 Overview (12/15/2016): CRNRY ATHRSCL NATVE VSSL History of coronary artery bypass surgery 07/14/2013 09/17/2018 Overview (12/15/2016): AORTOCORONARY BYPASS Hypotension 07/14/2013 10/13/2024 Overview (12/15/2016): Hypotension Mitral valve disease 01/20/2013 018 Overview (12/15/2016): MITRAL VALVE DISORDER Chronic ischemic heart disease 01/08/2012 06/21/2018 Overview (12/13/2016): CHR ISCHEMIC HRT DIS NOS Atherosclerosis of coronary artery 12/05/2011 06/21/2018 Encounters Date Type Department Care Team Description 04/21/2025 10:30 AM CDT Ancillary Procedure [facility] Cardiology [address] [address] ICD (implantable cardioverter-defibrill ator) in place (Primary Dx); Ischemic cardiomyopathy; Paroxysmal ventricular tachycardia (HCC) 04/13/2025 11:45 AM CDT Office Visit [facility] Cardiology [address] [place] [address] El Mishra MD Multiple-type hyperlipidemia (Primary Dx); S/P drug eluting coronary stent placement; Hx of CABG; Morbid (severe) obesity due to excess calories (E66.01); Body mass index [BMI] 36.0-36.9, adult (Z68.36) from Last 3 Months Surgical History Surgery Date Site/Laterality Comments APPENDECTOMY Appendectomy CORONARY ARTERY BYPASS GRAFT MITRAL VALVE REPAIR CARDIAC DEFIBRILLATOR PLACEMENT CARDIAC VALVE REPLACEMENT 09/10/2009 - 10/10/2009 Medical History Medical History Date Comments Valvular disease 2011 Coronary artery disease 2011 CABG Hyperlipidemia Ischemic cardiomyopathy CHF (congestive heart failure) (HCC) Mitral regurgitation Sleep apnea Diabetes mellitus SEP 2020 Heart disease SEP 2009 Family [...] on file 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 Gender Identity Not on file Sexual Orientation Not on file Obstetrics History Last Filed Vital Signs Vital Sign Reading Time Taken Comments Blood Pressure 120/66 04/13/2025 11:47 AM CDT Pulse 77 04/13/2025 11:47 AM CDT Temperature 36.2 C (97.1 F) 12/02/2020 1:48 PM CDT Respiratory Rate 16 09/23/2019 3:31 PM PHYSICIAN SCIENTIST Oxygen Saturation 92% 04/13/2025 11: 47 AM CDT Inhaled Oxygen Concentration - - Weight 119.8 kg (264 lb 1.6 oz) 025 11:47 AM CDT Height 180.3 cm (5' 11) 04/13/2025 11: 47 AM CDT Body Mass Index 36.83 04/13/2025 11:47 AM CDT Plan of Treatment Health Maintenance Due Date [...] 02/28/2024 02/27/2023, 08/10, 07/31/2018 Influenza Vaccine (#1) 2025 Lipid Panel 04/23/2026 04/23/2025, 12/2024, 03/03/2024, Additional history exists Medical Devices Implanted Type Area Safety Professional Device Identifier Shelf Expiration Date Model / Serial / Lot Icd ICD Left: Chest [employer] X [id number] Resolute [place] 4mm 2.1-2.7fr 18mm 140cm Rapid Exchange Radiopaque - [id number] Implanted:Qty: 1 on 08/29/2018 by Antonio Mejia MD at [facility] Stent [employer] X 05/08/2020 [id number] / / [id number] [employer] X [id number] Resolute [place] 4.5mm 2.1-2.7fr 18mm 140cm Rapid Exchange - [id number] Implanted:Qty: 1 on 08/29/2018 by Antonio Mejia MD at [facility] Stent [employer] X 02/19/2020 [id number] / / [id number] [employer] X [id number] Resolute [place] 5mm 2.1-2.7fr 18mm 140cm Rapid Exchange Radiopaque - [id number] Implanted:Qty: 1 on 08/29/2018 by Antonio Mejia MD at [facility] Stent [employer] X 07/11/2020 [id number] / / [id number] Daig Katie[employer] [id number] Angio-Seal Vip Bondek-Plus 6fr .035in 70cm Hemostatic Latex Free - [id number] Implanted:Qty: 1 on 08/29/2018 by Antonio Mejia MD at [facility] Daig Katie[employer] 06/09/2019 [id number] / / [id number] Daig Katie[employer] [id number] Angio-Seal Vip Bondek-Plus 8fr .038in 70cm Hemostatic Latex Free - [id number] Implanted:Qty: 1 on 08/29/2018 by Antonio Mejia MD at [facility] [employer]ig Katie[employer] 11/07/2018 [id number] / / [id number] Procedures Procedure Name Priority Date/Time Associated Diagnosis Comments LIPID PANEL Routine 04/23/2025 Multiple-type hyperlipidemia DEVICE CHECK - REMOTE Routine 04/21/2025 1:08 PM CDT Ischemic cardiomyopathy Paroxysmal ventricular tachycardia (HCC) POCT LIPID PANEL Routine 04/13/2025 12:3 1 PM CDT Multiple-type hyperlipidemia BASIC METABOLIC PANEL Routine 02/27/2023 Chronic systolic heart failure (HCC) Ischemic cardiomyopathy from Last 3 Months or Most Recently Relevant to Health Maintenance Results * (ABNORMAL) Lipid panel (04/23/2025) SCRIBED Cholesterol, Total 170 30 - 199 mg/dL EXTERNAL LAB SCRIBED Triglycerides 515(A) <=149 mg/dL EXTERNAL LAB SCRIBED HDL 32(A) >=40 mg/dL EXTERNAL LAB SCRIBED LDL 45 <=129 mg/dL EXTERNAL LAB Scribed Non-HDL Cholesterol EXTERNAL LAB Comment:- SCRIBED Total Cholesterol/HDL Ratio EXTERNAL LAB Comment:- Blood 04/23/2025 El Mishra MD LAB BLOOD ORDERABLES Final Result EXTERNAL LAB * DEVICE CHECK - REMOTE (04/21/2025 1:08 PM CDT) Anatomical Region Laterality Modality Other Narrative 05/14/2025 7:[address] [facility] Single ICD. Dx; ICM. Gen Change 02/06/2019, chronic lead 01/23/2012. Poncho remote monitoring Q3 mo, office device checks Q1 yr. Routine VVI ICD Remote. Transmission attached. Battery status 48%, 4.4 years remaining battery life to RODNEY. Stable Charge time and Shock impedance. Stable lead impedances, pacing, and sensing threshold. Presenting rhythm: VS sinus bradycardia RADIOLOGY ASST-< 1 %, (0) Ventricular tachy arrhythmias detected. Medication: Brilinta 60 mg, ASA 81 mg, metoprolol 100 mg, Entresto 97-103 mg Follow up: Office Pacemaker/ICD scheduled 10/21/25 Poncho remote 07/21/25 Mayur Bhakta, JEANNIE El Mishra MD [facility] CARDIAC SERVICES PROCEDURES Final Result * (ABNORMAL) POCT lipid panel (04/13/2025 12:31 PM CDT) Cholesterol, POC 224 <200 MG/DL Comment:GLU = 197 Triglycerides, POC 650(A) <=149 mg/dL Cholesterol Total, POC 224(A) 30 - 199 mg/dL Capillary blood 04/13/2025 1 2:31 PM CDT us El Mishra MD POINT OF [...] - 10.2 mg/dl EXTERNAL LAB SCRIBED eGFR - - - - EXTERNAL LAB SCRIBED eGFR >60 - - >60 EXTERNAL LAB Blood 02/27/2023 us Asha Lowery MD LAB BLOOD ORDERABLES Final Result EXTERNAL LAB from Last 3 Months or Most Recently Relevant to Health Maintenance Insurance [facility] CLAIMS MEDICARE FOR LIFE Care Teams Newspaper Carriers Supervisor Relationship Specialty Start Date End Date Heri Arroyo MD [address] [facility] [address] [place] [address] PCP - General Family Medicine 10/13/24
--- OUTSIDE RECORDS SUMMARY | 2025-07-01 14:23 | XMS_ITS | Clinical Summary ---
Author Organization [facility] Address [address] [place] [address] Phone Care Team Providers Care Supervisor Wheel Shop Name Role Phone Unavailable Unavailable Unavailable Reason [...] 02/11/2009 Last Documented On 9 4:38PM ; [facility] Alcohol 1 NIGHT A WEEK 02/11/2009 Last Documented On 9 4:38PM ; [facility] Cigarette smoking 2 PACKS PER DAY 2008 Last Documented On 9 4:38PM ; [facility] Exercise frequency FREQUENT 02/11/2009 Last Documented On 9 4:38PM ; [facility] 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 [facility] 02/12/20 09 4:35PM 11:59PM Clinical Notes Includes: Clinical Notes from this encounter No Clinical Notes Recorded
--- OUTSIDE RECORDS SUMMARY | 2025-07-01 14:23 | XMS_ITS | Clinical Summary ---
Author Organization [facility] Address [address] [place] [address] Phone Care Team Providers Care Regional Engagement Consultant Name Role Phone Unavailable Unavailable Unavailable Reason [...] Time Diagnosis CHECK UP BRANDIE MAYERS D.O. [facility] 04/22/ 8 3:29PM 11:59PM Clinical Notes Includes: Clinical Notes from this encounter No Clinical Notes Recorded
--- OUTSIDE RECORDS SUMMARY | 2025-07-01 14:23 | XMS_ITS ---
Author Organization [facility] Address [address] [place] [address] Phone Care Team Providers Care Planning And Analysis Manager Name Role Phone Unavailable Unavailable Unavailable Plan of Treatment No Plan of Treatment Recorded Assessments Includes: Assessments for all patient encounters No Assessments Recorded Medical Equipment - Implanted Devices Includes: Current and historical Devices No Medical Equipment Recorded Medications Administered Includes: Administered Medications in patient's chart No Administered Medications Recorded Results Includes: Results from 07/01/2024 through 07/01/2025 No Results Recorded For Specified Dates History of Present Illness History of Present Illness not supported for this document type No History of Present Illness Recorded Social History Description Last Updated Abnormal diet REGULAR 02/11/2009 Last Documented On 9 4:38PM ; [facility] Alcohol 1 NIGHT A WEEK 02/11/2009 Last Documented On 9 4:38PM ; [facility] Cigarette smoking 2 PACKS PER DAY 2008 Last Documented On 9 4:38PM ; [facility] Exercise frequency FREQUENT 02/11/2009 Last Documented On 9 4:38PM ; [facility] 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 Medical History Includes: Medical History in [...]
--- OUTSIDE RECORDS SUMMARY | 2025-07-01 14:23 | XMS_ITS ---
Care Plan - [facility] Created on: July 01, 2025 SHANTE BEDOYA : 1970 Sex: Male Author Organization [facility] Address [address] [place] [address] Phone Care Team Providers Care Visual Design Lead Name Role Phone Unavailable Unavailable Unavailable
--- OUTSIDE RECORDS SUMMARY | 2025-07-01 14:23 | XMS_ITS | Clinical Summary ---
Author Organization [facility] Address [address] [place] [address] Phone Care Team Providers Care Home Service Director Name Role Phone Unavailable Unavailable Unavailable Reason [...] Diagnosis NEW PATIENT VISIT BRANDIE MAYERS D.O. [facility] 02/17/20 08 2:33PM 11:59PM Clinical Notes Includes: Clinical Notes from this encounter No Clinical Notes Recorded
--- OUTSIDE RECORDS SUMMARY | 2025-07-01 14:23 | XMS_ITS | Encounter Summary ---
Author Organization [facility] Address [address] [facility] [address] [place] [id number] Care Team Providers Care Trucking Supervisor Name Role Phone Alena Castro MD Primary Care Provider + Alena Castro MD Primary Care Provider + Adan Guzman MD Primary Care Provider [phone] Mariajose Becerra NP Primary Care Provider [phone] Radha Hall MD Primary Care Provider Heri Arroyo MD Primary Care Provider Encounter Details Date Type Department Care Team (Late st Contact Info) Description 10/24/2016 Orders Only [facility] Provider, MD Lillie [address] [place] [id number] Social History Tobacco Use Types Packs/Day Years Used Date Smoking Tobacco: Light Smoker Cigarettes Last attempted t o quit: 09/10/2011 Comments:Smoking History Pac ks/day: 5 Cigarettes Alcohol Use Standard Drinks/Week Comments Yes 0 (1 standard drink = 0.6 oz pur e alcohol) Sex and Gender Information Value Date Recorded Sex Assigned at Not on file 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 Gender Identity Not on file Sexual Orientation [...] on filedocumented in this encounter Care Teams Trucking Supervisor Relationship Specialty Start Date End Date Alena Castro MD [address] [place] [address] PCP - General 12/08/16 03/04/18 Alena Castro MD [address] [place] [address] PCP - General 03/04/12 12/07/16 Adan Guzman MD [address] [facility] [address] [place] [address] PCP - General Internal Medicine 03/05/18 11/01/20 Mariajose Becerra NP [address] [facility] [address] [place] [address] PCP - General Nurse Practitioner 11/02/20 10/25/21 Radha Hall MD [address] [place] [address] PCP - General Family Medicine 10/26/21 10/12/24 Heri Arroyo MD [address] [place] [address] PCP - General Family Medicine 10/13/24 documented as of this encounter
--- OUTSIDE RECORDS SUMMARY | 2025-07-01 14:23 | XMS_ITS | Clinical Summary ---
Author Organization [facility] Address [address] [place] [address] Phone Care Team Providers Care Senior Clinical Research Associate Name Role Phone Unavailable Unavailable Unavailable Reason [...] Diagnosis 1 WK CK-UP BRANDIE MAYERS D.[facility] 8 2:34PM 11:59PM Clinical Notes Includes: Clinical Notes from this encounter No Clinical Notes Recorded
--- OUTSIDE RECORDS SUMMARY | 2025-07-01 14:23 | XMS_ITS | Encounter Summary ---
Author Organization [facility] Address [address] [facility] [address] [place] [address] Care Team Providers Care Ase Master Mechanic Name Role Phone Alena Castro MD Primary Care Provider + Adan Guzman MD Primary Care Provider [phone] Mariajose Becerra NP Primary Care Provider [phone] Radha Hall MD Primary Care Provider Heri Arroyo MD Primary Care Provider Encounter Details Date Type Department Care Team (Late st Contact Info) Description 01/23/2017 Orders Only [facility] ProviderLillie MD [address] [place] [address] Social History Tobacco Use Types Packs/Day Years Used Date Smoking Tobacco: Light Smoker Cigarettes Last attempted t o quit: 09/10/2011 Comments:Smoking History Pac ks/day: 5 Cigarettes Alcohol Use Standard Drinks/Week Comments Yes 0 (1 standard drink = 0.6 oz pur e alcohol) Sex and Gender Information Value Date Recorded Sex Assigned at Not on file 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 Gender Identity Not on file Sexual [...] on filedocumented in this encounter Care Teams Ase Master Mechanic Relationship Specialty Start Date End Date Alena Castro MD [address] [facility] [place] [address] PCP - General 12/08/16 03/04/18 Adan Guzman MD [address] [place] [address] PCP - General Internal Medicine 03/05/18 11/01/20 Mariajose Becerra NP [address] [place] [address] PCP - General Nurse Practitioner 11/02/20 10/25/21 Radha Hall MD [address] [place] [address] PCP - General Family Medicine 10/26/21 10/12/24 Heri Arroyo MD [address] [place] [address] PCP - General Family Medicine 10/13/24 documented as of this encounter
== END 2025-07-01 11:13 | disposition home or self-care (01) ==
PROVIDERS: PCP Family Medicine; Visit Provider Student in an Organized Health Care Education/Training Program
DX: E11.65 Type 2 diabetes mellitus with hyperglycemia (principal); I10 Essential (primary) hypertension; Z79.4 Long term (current) use of insulin
CPT/HCPCS: 36415; 80053; 83036